=== PATIENT | female | born 1965 | race African-American/Black ===

== ENCOUNTER 2019-09-20 09:53 | Inpatient (IN) ==
[2019-09-20 11:38] LABS: Hematocrit 43.6 VOL% (35.7-47.0); Hemoglobin 13.7 GM/DL (12.0-16.0); Immature Granulocytes % 0.2 %; Immature Granulocytes Absolute 0.01 #; Lymphocytes # 0.9 10*3/uL (1.4-4.0); Lymphocytes % 17.1 % (21.3-54.2); Mean Corpuscular HGB Conc 31.4 GM/DL (32-36); Mean Corpuscular Volume 83.5 FL (87-102); Mean Platelet Volume 9.2 FL (9.6-12.0); Monocytes % 4.1 % (1.7-12.7); Neutrophils % 78.6 % (38.7-73.9); Platelet Count 160 T/CUMM (130-400); Red Blood Count 5.22 MC/CUMM (3.8-5.5); Red Cell Distribution Width 14.5 % (9.3-17.3); White Blood Count 5.4 T/CUMM (4-12)
[2019-09-20] MEDS ORDERED: cefTRIAXone 1,000 MG in SODIUM CHLORIDE 0.9% 100 ML IV STA (11:59)
[2019-09-20] MEDS ORDERED: FUROSEMIDE 40 MG/4 ML VIAL IV STA (12:00)
[2019-09-20 12:16] LABS: Ferritin 324.2 ng/ml (8-252)
[2019-09-20] MEDS ORDERED: cefTRIAXone 1,000 MG VIAL ONE (12:16)
[2019-09-20 12:28] LABS: Albumin 2.8 G/DL (3.4-5.0); Bilirubin,Total 0.5 MG/DL (0.2-1.0); Calcium 8.3 MG/DL (8.5-10.1); Osmolality,Calculated 284.8 MOS/KG (273-304)
[2019-09-20 12:32] LABS: Bilirubin,Urine Negative (Negative); Blood, Urine Negative (Negative); Glucose,Urine (UA) Negative (Negative); Hyaline Casts,Urine 4 /LPF (0-3); Ketones,Urine Negative (Negative); Mucus,Urine Few /LPF (Occasional); Nitrite,Urine Negative (Negative); Protein,Urine 30 MG/DL; RBC,Urine 1 /HPF (0-4); Squamous Epithelial Cell,Urine Occasional /HPF (0-10); Urine Appearance CLOUDY (Clear); Urine Color Amber (Yellow); Urine Specific Gravity 1.024 (1.001-1.035)
[2019-09-20] MEDS: LACTATED RINGERS 1,000 ML IV SCH (14:49)
[2019-09-20] MEDS ORDERED: REMDESIVIR 200 MG in SODIUM CHLORIDE 0.9% 210 ML IV ONE (17:00)
[2019-09-20] MEDS: DOCUSATE SODIUM 100 MG CAPSULE PO SCH (20:27)
[2019-09-21] MEDS: LACTATED RINGERS 1,000 ML IV SCH (04:11)
[2019-09-21 06:27] LABS: Hematocrit 43.5 VOL% (35.7-47.0); Hemoglobin 13.3 GM/DL (12.0-16.0); Immature Granulocytes % 0.2 %; Immature Granulocytes Absolute 0.01 #; Lymphocytes # 0.6 10*3/uL (1.4-4.0); Lymphocytes % 12.1 % (21.3-54.2); Mean Corpuscular HGB Conc 30.6 GM/DL (32-36); Mean Corpuscular Volume 84.1 FL (87-102); Mean Platelet Volume 9.6 FL (9.6-12.0); Monocytes % 2.9 % (1.7-12.7); Neutrophils % 84.8 % (38.7-73.9); Platelet Count 167 T/CUMM (130-400); Red Blood Count 5.17 MC/CUMM (3.8-5.5); Red Cell Distribution Width 14.6 % (9.3-17.3); White Blood Count 5.1 T/CUMM (4-12)
[2019-09-21 06:53] LABS: Albumin 2.7 G/DL (3.4-5.0); Calcium 8.8 MG/DL (8.5-10.1); Osmolality,Calculated 285.7 MOS/KG (273-304); Total Protein 7.6 G/DL (6.4-8.3)
[2019-09-21 07:09] LABS: Hypochromasia 1+; Microcytosis 1+; Platelet Estimate Adequate
[2019-09-21] MEDS: ONDANSETRON 4 MG/2 ML VIAL IV PRN (07:42)
[2019-09-21] MEDS: DOCUSATE SODIUM 100 MG CAPSULE PO SCH ×2 (08:30→20:47)
[2019-09-21] MEDS ORDERED: PANTOPRAZOLE 40 MG TABLET PO SCH (09:00)
[2019-09-21] MEDS: cefTRIAXone 1,000 MG in SYRINGE 1 EACH IV SCH (11:06)
[2019-09-21] MEDS: POTASSIUM CHLORIDE INJ 20 MEQ in LACTATED RINGERS 1,000 ML IV SCH (11:06)
[2019-09-21] MEDS: REMDESIVIR 100 MG in SODIUM CHLORIDE 0.9% 230 ML IV SCH (16:15)
[2019-09-21] MEDS: ACETAMINOPHEN 325 MG TABLET PO PRN (17:39)
[2019-09-21] MEDS: BENZTROPINE 1 MG TABLET PO SCH (20:47)
[2019-09-22] MEDS: POTASSIUM CHLORIDE INJ 20 MEQ in LACTATED RINGERS 1,000 ML IV SCH ×2 (02:16→15:37)
[2019-09-22] MEDS: DEXAMETHASONE 10 MG/1 ML VIAL IV SCH (09:13)
[2019-09-22] MEDS: BENZTROPINE 1 MG TABLET PO SCH ×2 (09:14→20:05)
[2019-09-22] MEDS: DOCUSATE SODIUM 100 MG CAPSULE PO SCH ×2 (09:14→20:06)
[2019-09-22] MEDS: ARIPiprazole 10 MG TABLET PO SCH (09:14)
[2019-09-22] MEDS: buPROPion XL 150 MG TABLET PO SCH (09:31)
[2019-09-22] MEDS: cefTRIAXone 1,000 MG in SYRINGE 1 EACH IV SCH (11:31)
[2019-09-22] MEDS: REMDESIVIR 100 MG in SODIUM CHLORIDE 0.9% 230 ML IV SCH (17:40)
[2019-09-22 22:39] LABS: ABG Base Excess 3.5 MMOL/L (-2.5-2.5); ABG HCO3 26.6 MMOL/L (20-26); ABG Oxygen Saturation 58.8 % (95-100); ABG PH 7.449 (7.35-7.45); ABG TCO2 24.2 MMOL/L (23-27)
[2019-09-22 22:42] LABS: ABG PO2 31.8 MM HG (80-95)
[2019-09-22 23:26] LABS: Calcium 8.8 MG/DL (8.5-10.1); Osmolality,Calculated 287.1 MOS/KG (273-304)
[2019-09-23] MEDS: POTASSIUM CHLORIDE INJ 20 MEQ in LACTATED RINGERS 1,000 ML IV SCH (04:45)
[2019-09-23 06:54] LABS: Hematocrit 42.3 VOL% (35.7-47.0); Hemoglobin 13.1 GM/DL (12.0-16.0); Immature Granulocytes % 0.2 %; Immature Granulocytes Absolute 0.01 #; Lymphocytes # 0.7 10*3/uL (1.4-4.0); Lymphocytes % 17.7 % (21.3-54.2); Mean Corpuscular Volume 83.6 FL (87-102); Mean Platelet Volume 9.6 FL (9.6-12.0); Monocytes % 6.7 % (1.7-12.7); Neutrophils % 75.4 % (38.7-73.9); Platelet Count 176 T/CUMM (130-400); Red Blood Count 5.06 MC/CUMM (3.8-5.5); Red Cell Distribution Width 14.5 % (9.3-17.3)
[2019-09-23 07:34] LABS: Albumin 2.4 G/DL (3.4-5.0); Bilirubin,Total 0.6 MG/DL (0.2-1.0); Calcium 8.7 MG/DL (8.5-10.1); Osmolality,Calculated 284.3 MOS/KG (273-304)
[2019-09-23] MEDS: ENOXAPARIN 60 MG/0.6 ML SYRINGE SUBCUT SCH ×2 (09:14→20:30)
[2019-09-23] MEDS: buPROPion XL 150 MG TABLET PO SCH ×2 (09:15→10:57)
[2019-09-23] MEDS: DEXAMETHASONE 10 MG/1 ML VIAL IV SCH (09:16)
[2019-09-23] MEDS: DOCUSATE SODIUM 100 MG CAPSULE PO SCH ×2 (09:16→20:36)
[2019-09-23] MEDS: BENZTROPINE 1 MG TABLET PO SCH ×3 (09:16→20:36)
[2019-09-23] MEDS: ARIPiprazole 10 MG TABLET PO SCH ×2 (09:16→10:57)
[2019-09-23] MEDS: cefTRIAXone 1,000 MG in SYRINGE 1 EACH IV SCH (09:23)
[2019-09-23] MEDS ORDERED: FUROSEMIDE 40 MG/4 ML VIAL IV ONE (15:39)
[2019-09-23] MEDS: REMDESIVIR 100 MG in SODIUM CHLORIDE 0.9% 230 ML IV SCH (18:14)
[2019-09-23] MEDS ORDERED: HALOPERIDOL 5 MG/ML AMP IM ONE (19:31)
[2019-09-24 06:48] LABS: Hematocrit 44.1 VOL% (35.7-47.0); Hemoglobin 13.7 GM/DL (12.0-16.0); Immature Granulocytes % 0.2 %; Immature Granulocytes Absolute 0.02 #; Lymphocytes % 11.7 % (21.3-54.2); Mean Corpuscular HGB Conc 31.1 GM/DL (32-36); Mean Corpuscular Volume 83.1 FL (87-102); Mean Platelet Volume 9.6 FL (9.6-12.0); Monocytes % 6.1 % (1.7-12.7); Platelet Count 194 T/CUMM (130-400); Red Blood Count 5.31 MC/CUMM (3.8-5.5); Red Cell Distribution Width 14.5 % (9.3-17.3); White Blood Count 8.4 T/CUMM (4-12)
[2019-09-24 06:56] LABS: Albumin 2.6 G/DL (3.4-5.0); Bilirubin,Total 0.7 MG/DL (0.2-1.0); Calcium 9.2 MG/DL (8.5-10.1); Osmolality,Calculated 293.8 MOS/KG (273-304); Total Protein 7.3 G/DL (6.4-8.3)
[2019-09-24] MEDS: cefTRIAXone 1,000 MG in SYRINGE 1 EACH IV SCH (09:42)
[2019-09-24] MEDS: ENOXAPARIN 60 MG/0.6 ML SYRINGE SUBCUT SCH ×2 (09:42→21:12)
[2019-09-24] MEDS: DEXAMETHASONE 10 MG/1 ML VIAL IV SCH (09:43)
[2019-09-24] MEDS: buPROPion XL 150 MG TABLET PO SCH (10:05)
[2019-09-24] MEDS: ARIPiprazole 10 MG TABLET PO SCH (10:05)
[2019-09-24] MEDS: DOCUSATE SODIUM 100 MG CAPSULE PO SCH ×2 (10:05→21:12)
[2019-09-24] MEDS: BENZTROPINE 1 MG TABLET PO SCH ×2 (10:05→21:12)
[2019-09-24 16:52] LABS: ABG Base Excess 5.3 MMOL/L (-2.5-2.5); ABG HCO3 29.1 MMOL/L (20-26); ABG Oxygen Saturation 92.8 % (95-100); ABG PCO2 41.6 MM HG (35-48); ABG PH 7.461 (7.35-7.45); ABG TCO2 25.5 MMOL/L (23-27)
[2019-09-24] MEDS ORDERED: PANTOPRAZOLE 40 MG TABLET PO SCH (17:00)
[2019-09-24] MEDS: REMDESIVIR 100 MG in SODIUM CHLORIDE 0.9% 230 ML IV SCH (17:28)
[2019-09-24] MEDS ORDERED: VANCOMYCIN INJ 1,500 MG in SODIUM CHLORIDE 0.9% 500 ML IV SCH (21:00)
[2019-09-24] MEDS: HALOPERIDOL 5 MG/ML AMP IM PRN (21:04)
[2019-09-24] MEDS: PANTOPRAZOLE 40 MG TABLET PO SCH (21:13)
[2019-09-25 05:04] LABS: Albumin 2.5 G/DL (3.4-5.0); Bilirubin,Total 0.6 MG/DL (0.2-1.0); Calcium 8.2 MG/DL (8.5-10.1); Osmolality,Calculated 296.7 MOS/KG (273-304); Total Protein 6.8 G/DL (6.4-8.3)
[2019-09-25] MEDS: ENOXAPARIN 60 MG/0.6 ML SYRINGE SUBCUT SCH ×3 (08:03→17:30)
[2019-09-25] MEDS: DEXAMETHASONE 10 MG/1 ML VIAL IV SCH (08:03)
[2019-09-25] MEDS: PANTOPRAZOLE 40 MG TABLET PO SCH (09:27)
[2019-09-25] MEDS: BENZTROPINE 1 MG TABLET PO SCH ×2 (09:27→22:22)
[2019-09-25] MEDS: DOCUSATE SODIUM 100 MG CAPSULE PO SCH ×2 (09:28→22:21)
[2019-09-25] MEDS: ARIPiprazole 10 MG TABLET PO SCH (12:20)
[2019-09-25] MEDS: buPROPion XL 150 MG TABLET PO SCH (12:20)
[2019-09-25] MEDS: VANCOMYCIN INJ 1,500 MG in SODIUM CHLORIDE 0.9% 500 ML IV SCH (13:58)
[2019-09-25] MEDS ORDERED: FUROSEMIDE 40 MG/4 ML VIAL IV ONE (16:31)
[2019-09-26] MEDS: VANCOMYCIN INJ 1,500 MG in SODIUM CHLORIDE 0.9% 500 ML IV SCH ×3 (00:57→22:03)
[2019-09-26 04:40] LABS: Basophils % 0.1 % (0.0-0.8); Hematocrit 43.5 VOL% (35.7-47.0); Hemoglobin 13.6 GM/DL (12.0-16.0); Immature Granulocytes % 0.7 %; Immature Granulocytes Absolute 0.07 #; Lymphocytes # 0.6 10*3/uL (1.4-4.0); Mean Corpuscular HGB Conc 31.3 GM/DL (32-36); Mean Corpuscular Volume 82.7 FL (87-102); Mean Platelet Volume 9.4 FL (9.6-12.0); Monocytes % 3.6 % (1.7-12.7); Neutrophils % 89.6 % (38.7-73.9); Platelet Count 163 T/CUMM (130-400); Red Blood Count 5.26 MC/CUMM (3.8-5.5); Red Cell Distribution Width 14.3 % (9.3-17.3); White Blood Count 10.7 T/CUMM (4-12)
[2019-09-26 04:57] LABS: Calcium 8.3 MG/DL (8.5-10.1); Osmolality,Calculated 286.1 MOS/KG (273-304)
[2019-09-26] MEDS: ENOXAPARIN 60 MG/0.6 ML SYRINGE SUBCUT SCH ×2 (05:36→16:31)
[2019-09-26] MEDS: DEXAMETHASONE 10 MG/1 ML VIAL IV SCH (09:22)
[2019-09-26] MEDS: ARIPiprazole 10 MG TABLET PO SCH (09:24)
[2019-09-26] MEDS: BENZTROPINE 1 MG TABLET PO SCH ×2 (09:24→22:03)
[2019-09-26] MEDS: buPROPion XL 150 MG TABLET PO SCH (09:25)
[2019-09-26] MEDS: PANTOPRAZOLE 40 MG TABLET PO SCH (09:25)
[2019-09-26] MEDS: DOCUSATE SODIUM 100 MG CAPSULE PO SCH ×2 (12:00→22:03)
[2019-09-26] MEDS ORDERED: FUROSEMIDE 40 MG/4 ML VIAL IV ONE (15:25)
[2019-09-27] MEDS: ENOXAPARIN 60 MG/0.6 ML SYRINGE SUBCUT SCH ×2 (04:24→15:20)
[2019-09-27] MEDS: DOCUSATE SODIUM 100 MG CAPSULE PO SCH ×2 (08:51→21:34)
[2019-09-27] MEDS: PANTOPRAZOLE 40 MG TABLET PO SCH (08:51)
[2019-09-27] MEDS: BENZTROPINE 1 MG TABLET PO SCH ×2 (08:51→21:34)
[2019-09-27] MEDS: buPROPion XL 150 MG TABLET PO SCH (08:51)
[2019-09-27] MEDS: DEXAMETHASONE 10 MG/1 ML VIAL IV SCH (08:52)
[2019-09-27] MEDS: ARIPiprazole 10 MG TABLET PO SCH (08:52)
[2019-09-27] MEDS: VANCOMYCIN INJ 1,500 MG in SODIUM CHLORIDE 0.9% 500 ML IV SCH (18:03)
[2019-09-28] MEDS: ARIPiprazole 10 MG TABLET PO SCH (08:36)
[2019-09-28] MEDS: DOCUSATE SODIUM 100 MG CAPSULE PO SCH ×2 (08:36→20:32)
[2019-09-28] MEDS: ENOXAPARIN 60 MG/0.6 ML SYRINGE SUBCUT SCH ×2 (08:36→20:32)
[2019-09-28] MEDS: PANTOPRAZOLE 40 MG TABLET PO SCH (08:36)
[2019-09-28] MEDS: BENZTROPINE 1 MG TABLET PO SCH ×2 (08:36→20:32)
[2019-09-28] MEDS: DEXAMETHASONE 10 MG/1 ML VIAL IV SCH (08:37)
[2019-09-28] MEDS: VANCOMYCIN INJ 1,500 MG in SODIUM CHLORIDE 0.9% 500 ML IV SCH (08:37)
[2019-09-28] MEDS: buPROPion XL 150 MG TABLET PO SCH (08:37)
[2019-09-29] MEDS: VANCOMYCIN INJ 1,500 MG in SODIUM CHLORIDE 0.9% 500 ML IV SCH ×2 (03:13→21:07)
[2019-09-29] MEDS: ACETAMINOPHEN 325 MG TABLET PO PRN (05:10)
[2019-09-29] MEDS: DEXAMETHASONE 10 MG/1 ML VIAL IV SCH (08:44)
[2019-09-29] MEDS: BENZTROPINE 1 MG TABLET PO SCH ×2 (08:44→21:09)
[2019-09-29] MEDS: PANTOPRAZOLE 40 MG TABLET PO SCH (08:44)
[2019-09-29] MEDS: DOCUSATE SODIUM 100 MG CAPSULE PO SCH ×2 (08:44→21:08)
[2019-09-29] MEDS: ARIPiprazole 10 MG TABLET PO SCH (08:44)
[2019-09-29] MEDS: ENOXAPARIN 60 MG/0.6 ML SYRINGE SUBCUT SCH ×2 (08:44→21:09)
[2019-09-29] MEDS: buPROPion XL 150 MG TABLET PO SCH (08:51)
[2019-09-29] MEDS: HALOPERIDOL 5 MG/ML AMP IM PRN (21:08)
[2019-09-30] MEDS: ONDANSETRON 4 MG/2 ML VIAL IV PRN ×2 (02:40→09:18)
[2019-09-30 06:25] LABS: Calcium 8.2 MG/DL (8.5-10.1); Osmolality,Calculated 273.1 MOS/KG (273-304)
[2019-09-30 07:16] LABS: Basophils % 0.1 % (0.0-0.8); Eosinophils % 0.1 % (0.00-10.9); Hematocrit 40.8 VOL% (35.7-47.0); Hemoglobin 13.1 GM/DL (12.0-16.0); Immature Granulocytes % 0.7 %; Immature Granulocytes Absolute 0.11 #; Lymphocytes # 1.3 10*3/uL (1.4-4.0); Lymphocytes % 8.2 % (21.3-54.2); Mean Corpuscular HGB Conc 32.1 GM/DL (32-36); Mean Corpuscular Volume 81.9 FL (87-102); Mean Platelet Volume 10.4 FL (9.6-12.0); Monocytes % 4.3 % (1.7-12.7); Neutrophils % 86.6 % (38.7-73.9); Platelet Count 108 T/CUMM (130-400); Red Blood Count 4.98 MC/CUMM (3.8-5.5); Red Cell Distribution Width 14.4 % (9.3-17.3); White Blood Count 15.4 T/CUMM (4-12)
[2019-09-30 07:34] LABS: Hypochromasia 1+
[2019-09-30 07:35] LABS: Microcytosis Slight; Platelet Estimate Decreased; Target Cells Slight
[2019-09-30] MEDS: ARIPiprazole 10 MG TABLET PO SCH (09:17)
[2019-09-30] MEDS: BENZTROPINE 1 MG TABLET PO SCH ×2 (09:17→20:09)
[2019-09-30] MEDS: PANTOPRAZOLE 40 MG TABLET PO SCH (09:18)
[2019-09-30] MEDS: DEXAMETHASONE 10 MG/1 ML VIAL IV SCH (09:18)
[2019-09-30] MEDS: DOCUSATE SODIUM 100 MG CAPSULE PO SCH ×2 (09:18→20:09)
[2019-09-30] MEDS: ENOXAPARIN 60 MG/0.6 ML SYRINGE SUBCUT SCH ×2 (09:18→20:09)
[2019-09-30] MEDS: buPROPion XL 150 MG TABLET PO SCH (09:19)
[2019-09-30 11:34] LABS: ABG Base Excess 5.8 MMOL/L (-2.5-2.5); ABG HCO3 29.3 MMOL/L (20-26); ABG Oxygen Saturation 82.3 % (95-100); ABG PCO2 42.5 MM HG (35-48); ABG PO2 47.9 MM HG (80-95); ABG TCO2 26.5 MMOL/L (23-27); Pt O2 Delivery Device Other
[2019-09-30] MEDS ORDERED: ETOMIDATE 20 MG/10 ML VIAL IV ONE ×3 (15:50→16:45)
[2019-09-30] MEDS ORDERED: SUCCINYLCHOLINE 200 MG/10 ML VIAL ONE ×2 (15:51→17:04)
[2019-09-30] MEDS ORDERED: SODIUM CHLORIDE 0.9% 500 ML IV ONE ×2 (16:07→16:59)
[2019-09-30] MEDS ORDERED: SUCCINYLCHOLINE 200 MG/10 ML VIAL IV ONE ×3 (16:47→17:26)
[2019-09-30] MEDS ORDERED: MIDAZOLAM 2 MG/2 ML VIAL IV ONE ×2 (16:48→17:03)
[2019-09-30] MEDS ORDERED: MIDAZOLAM 2 MG/2 ML VIAL ONE (16:48)
[2019-09-30] MEDS ORDERED: MIDAZOLAM 10 MG/2 ML VIAL ONE (16:49)
[2019-09-30] MEDS ORDERED: NOREPINEPHRINE 4 MG/4 ML VIAL IV ONE (17:18)
[2019-09-30] MEDS: NOREPINEPHRINE 8 MG in SODIUM CHLORIDE 0.9% 242 ML IV PRN (17:23)
[2019-09-30] MEDS: ROCURONIUM 500 MG in SODIUM CHLORIDE 0.9% 500 ML IV PRN (17:45)
[2019-09-30] MEDS: MIDAZOLAM 100 MG in SODIUM CHLORIDE 0.9% 80 ML IV PRN (17:49)
[2019-09-30] MEDS: INSULIN LISPRO 100 UNIT/ML SUBCUT SCH ×2 (18:40→23:25)
[2019-10-01 03:55] LABS: ABG Base Excess 3.8 MMOL/L (-2.5-2.5); ABG HCO3 27.9 MMOL/L (20-26); ABG PH 7.461 (7.35-7.45); ABG TCO2 29.1 MMOL/L (23-27)
[2019-10-01 04:58] LABS: Basophils % 0.1 % (0.0-0.8); Hemoglobin 12.3 GM/DL (12.0-16.0); Immature Granulocytes % 0.9 %; Immature Granulocytes Absolute 0.13 #; Lymphocytes # 0.8 10*3/uL (1.4-4.0); Lymphocytes % 5.9 % (21.3-54.2); Mean Corpuscular HGB Conc 30.8 GM/DL (32-36); Mean Corpuscular Volume 84.2 FL (87-102); Mean Platelet Volume 10.4 FL (9.6-12.0); Monocytes % 3.8 % (1.7-12.7); Neutrophils % 89.3 % (38.7-73.9); Platelet Count 80 T/CUMM (130-400); Red Blood Count 4.75 MC/CUMM (3.8-5.5); Red Cell Distribution Width 14.6 % (9.3-17.3); White Blood Count 13.8 T/CUMM (4-12)
[2019-10-01 05:02] LABS: Calcium 8.2 MG/DL (8.5-10.1); Osmolality,Calculated 279.5 MOS/KG (273-304)
[2019-10-01 05:23] LABS: Platelet Estimate Decreased
[2019-10-01 05:24] LABS: Hypochromasia 1+; Microcytosis Slight
[2019-10-01] MEDS: INSULIN LISPRO 100 UNIT/ML SUBCUT SCH ×4 (05:27→23:55)
[2019-10-01] MEDS: PANTOPRAZOLE 40 MG VIAL IV SCH (08:06)
[2019-10-01] MEDS: DOCUSATE SODIUM 100 MG/10 ML UDCUP NG SCH ×2 (08:06→20:16)
[2019-10-01] MEDS: DEXAMETHASONE 10 MG/1 ML VIAL IV SCH (08:07)
[2019-10-01] MEDS: ENOXAPARIN 60 MG/0.6 ML SYRINGE SUBCUT SCH (08:07)
[2019-10-01] MEDS: BENZTROPINE 1 MG TABLET PO SCH ×2 (08:08→20:13)
[2019-10-01] MEDS: ARIPiprazole 10 MG TABLET PO SCH (08:08)
[2019-10-01] MEDS: buPROPion 75 MG TABLET PO SCH ×2 (08:08→20:13)
[2019-10-01] MEDS: ROCURONIUM 500 MG in SODIUM CHLORIDE 0.9% 500 ML IV PRN (10:25)
[2019-10-01] MEDS ORDERED: GLUCAGON 1 MG VIAL IM PRN (15:07)
[2019-10-01] MEDS ORDERED: DEXTROSE 50% 25 GM/50 ML VIAL IV PRN (15:07)
[2019-10-01] MEDS: ARIXTRA SUBCUT SCH (20:13)
[2019-10-02 03:45] LABS: Allen Test Positive; Pt O2 Delivery Device Ventilator
[2019-10-02 03:47] LABS: ABG Base Excess 4.5 MMOL/L (-2.5-2.5); ABG HCO3 29.1 MMOL/L (20-26); ABG Oxygen Saturation 97.8 % (95-100); ABG PCO2 43.8 MM HG (35-48); ABG PH 7.441 (7.35-7.45); ABG TCO2 30.5 MMOL/L (23-27)
[2019-10-02 04:38] LABS: Basophils % 0.1 % (0.0-0.8); Eosinophils % 0.1 % (0.00-10.9); Hematocrit 36.8 VOL% (35.7-47.0); Hemoglobin 11.2 GM/DL (12.0-16.0); Immature Granulocytes % 0.6 %; Immature Granulocytes Absolute 0.08 #; Lymphocytes # 0.6 10*3/uL (1.4-4.0); Lymphocytes % 4.1 % (21.3-54.2); Mean Corpuscular HGB Conc 30.4 GM/DL (32-36); Mean Corpuscular Volume 85.6 FL (87-102); Mean Platelet Volume 12.1 FL (9.6-12.0); Monocytes % 4.5 % (1.7-12.7); Neutrophils % 90.6 % (38.7-73.9); Platelet Count 83 T/CUMM (130-400); Red Cell Distribution Width 14.7 % (9.3-17.3); White Blood Count 13.7 T/CUMM (4-12)
[2019-10-02 04:51] LABS: Calcium 8.5 MG/DL (8.5-10.1); Osmolality,Calculated 286.1 MOS/KG (273-304)
[2019-10-02 05:04] LABS: Hypochromasia 1+; Lymphocytes 5 % (20-55); Microcytosis Slight; Platelet Estimate Decreased; Segmented Neutrophils 90 % (50-85); Total Cells Counted 100
[2019-10-02] MEDS: INSULIN LISPRO 100 UNIT/ML SUBCUT SCH ×3 (06:15→17:28)
[2019-10-02] MEDS: DEXAMETHASONE 10 MG/1 ML VIAL IV SCH (08:22)
[2019-10-02] MEDS: PANTOPRAZOLE 40 MG VIAL IV SCH (08:22)
[2019-10-02] MEDS: buPROPion 75 MG TABLET PO SCH ×2 (08:23→20:03)
[2019-10-02] MEDS: DOCUSATE SODIUM 100 MG/10 ML UDCUP NG SCH ×2 (08:23→20:03)
[2019-10-02] MEDS: BENZTROPINE 1 MG TABLET PO SCH ×2 (08:23→20:03)
[2019-10-02] MEDS: ARIPiprazole 10 MG TABLET PO SCH (08:23)
[2019-10-02] MEDS: HALOPERIDOL 5 MG/ML AMP IM PRN (08:26)
[2019-10-02] MEDS: MIDAZOLAM 100 MG in SODIUM CHLORIDE 0.9% 80 ML IV PRN (08:47)
[2019-10-02] MEDS ORDERED: FUROSEMIDE 40 MG/4 ML VIAL IV ONE (15:40)
[2019-10-02] MEDS: ARIXTRA SUBCUT SCH (20:03)
[2019-10-03] MEDS: INSULIN LISPRO 100 UNIT/ML SUBCUT SCH ×4 (00:23→17:04)
[2019-10-03 05:00] LABS: Basophils % 0.2 % (0.0-0.8); Eosinophils # 0.1 10*3/uL (0.0-0.87); Eosinophils % 0.5 % (0.00-10.9); Hematocrit 38.3 VOL% (35.7-47.0); Hemoglobin 12.1 GM/DL (12.0-16.0); Immature Granulocytes % 0.9 %; Immature Granulocytes Absolute 0.16 #; Lymphocytes # 0.9 10*3/uL (1.4-4.0); Mean Corpuscular HGB Conc 31.6 GM/DL (32-36); Mean Corpuscular Volume 83.4 FL (87-102); Monocytes % 3.8 % (1.7-12.7); Neutrophils % 89.6 % (38.7-73.9); Platelet Count 127 T/CUMM (130-400); Red Blood Count 4.59 MC/CUMM (3.8-5.5); Red Cell Distribution Width 14.7 % (9.3-17.3); White Blood Count 18.6 T/CUMM (4-12)
[2019-10-03 05:10] LABS: ABG Base Excess 9.4 MMOL/L (-2.5-2.5); ABG HCO3 33.1 MMOL/L (20-26); ABG Oxygen Saturation 99.2 % (95-100); ABG PCO2 44.2 MM HG (35-48); ABG PH 7.493 (7.35-7.45); ABG TCO2 29.7 MMOL/L (23-27); Allen Test Positive; Pt O2 Delivery Device Ventilator
[2019-10-03 05:14] LABS: Calcium 8.8 MG/DL (8.5-10.1); Osmolality,Calculated 284.4 MOS/KG (273-304)
[2019-10-03 05:45] LABS: Hypochromasia 1+
[2019-10-03 05:46] LABS: Microcytosis Slight; Platelet Estimate Decreased
[2019-10-03] MEDS: ARIPiprazole 10 MG TABLET PO SCH (08:42)
[2019-10-03] MEDS: PANTOPRAZOLE 40 MG VIAL IV SCH (08:42)
[2019-10-03] MEDS: DOCUSATE SODIUM 100 MG/10 ML UDCUP NG SCH ×2 (08:42→20:30)
[2019-10-03] MEDS: buPROPion 75 MG TABLET PO SCH ×2 (08:42→20:30)
[2019-10-03] MEDS: DEXAMETHASONE 10 MG/1 ML VIAL IV SCH (08:42)
[2019-10-03] MEDS: BENZTROPINE 1 MG TABLET PO SCH ×2 (08:42→20:30)
[2019-10-03] MEDS: MIDAZOLAM 100 MG in SODIUM CHLORIDE 0.9% 80 ML IV PRN (09:28)
[2019-10-03] MEDS: cefTRIAXone 1,000 MG in SYRINGE 1 EACH IV SCH (13:42)
[2019-10-03] MEDS: ARIXTRA SUBCUT SCH (20:30)
[2019-10-03] MEDS: ZINC OXIDE PASTE 113 GM TUBE TOP SCH (20:30)
[2019-10-04] MEDS: INSULIN LISPRO 100 UNIT/ML SUBCUT SCH ×5 (01:04→23:53)
[2019-10-04] MEDS ORDERED: EPINEPHrine 1 MG/10 ML SYRINGE ONE (03:28)
[2019-10-04] MEDS ORDERED: CALCIUM CHLORIDE 1,000 MG/10 ML SYRINGE IV ONE (03:28)
[2019-10-04] MEDS ORDERED: SODIUM BICARBONATE 50 MEQ/50 ML SYRINGE IV ONE (03:28)
[2019-10-04 03:48] LABS: Basophils % 0.2 % (0.0-0.8); Eosinophils # 0.3 10*3/uL (0.0-0.87); Eosinophils % 1.3 % (0.00-10.9); Hematocrit 39.6 VOL% (35.7-47.0); Hemoglobin 11.9 GM/DL (12.0-16.0); Immature Granulocytes % 1.1 %; Immature Granulocytes Absolute 0.21 #; Lymphocytes # 3.3 10*3/uL (1.4-4.0); Lymphocytes % 16.5 % (21.3-54.2); Mean Corpuscular HGB Conc 30.1 GM/DL (32-36); Mean Corpuscular Volume 86.7 FL (87-102); Mean Platelet Volume 10.7 FL (9.6-12.0); Monocytes % 4.3 % (1.7-12.7); NRBC # 0.02 10*3/uL; Neutrophils % 76.6 % (38.7-73.9); Platelet Count 128 T/CUMM (130-400); Red Blood Count 4.57 MC/CUMM (3.8-5.5); Red Cell Distribution Width 14.8 % (9.3-17.3); White Blood Count 19.7 T/CUMM (4-12)
[2019-10-04 04:45] LABS: Albumin 1.7 G/DL (3.4-5.0); Bilirubin,Total 0.7 MG/DL (0.2-1.0); Calcium 12.4 MG/DL (8.5-10.1); Osmolality,Calculated 292.8 MOS/KG (273-304); Total Protein 6.1 G/DL (6.4-8.3)
[2019-10-04] MEDS: NOREPINEPHRINE 8 MG in SODIUM CHLORIDE 0.9% 242 ML IV PRN (05:07)
[2019-10-04 05:19] LABS: Allen Test Positive; Pt O2 Delivery Device Ventilator
[2019-10-04 05:20] LABS: ABG Base Excess 9.7 MMOL/L (-2.5-2.5); ABG HCO3 33.5 MMOL/L (20-26); ABG Oxygen Saturation 99.5 % (95-100); ABG PCO2 49.4 MM HG (35-48); ABG TCO2 31.2 MMOL/L (23-27)
[2019-10-04] MEDS: PANTOPRAZOLE 40 MG VIAL IV SCH (08:07)
[2019-10-04] MEDS: BENZTROPINE 1 MG TABLET PO SCH ×2 (08:08→21:27)
[2019-10-04] MEDS: ARIPiprazole 10 MG TABLET PO SCH (08:08)
[2019-10-04] MEDS: DEXAMETHASONE 10 MG/1 ML VIAL IV SCH (08:08)
[2019-10-04] MEDS: DOCUSATE SODIUM 100 MG/10 ML UDCUP NG SCH ×2 (08:08→21:28)
[2019-10-04] MEDS: ZINC OXIDE PASTE 113 GM TUBE TOP SCH ×2 (08:09→21:28)
[2019-10-04] MEDS: buPROPion 75 MG TABLET PO SCH ×2 (08:09→21:28)
[2019-10-04] MEDS ORDERED: POLYETHYLENE GLYCOL POWDER 17 GM PACK PO ONE (09:00)
[2019-10-04 09:40] LABS: Eosinophils # 0.3 10*3/uL (0.0-0.87); Eosinophils % 1.5 % (0.00-10.9); Hematocrit 38.1 VOL% (35.7-47.0); Hemoglobin 11.6 GM/DL (12.0-16.0); Immature Granulocytes Absolute 0.22 #; Lymphocytes # 1.3 10*3/uL (1.4-4.0); Lymphocytes % 5.8 % (21.3-54.2); Mean Corpuscular HGB Conc 30.4 GM/DL (32-36); Mean Corpuscular Volume 85.8 FL (87-102); Mean Platelet Volume 10.9 FL (9.6-12.0); Monocytes % 3.2 % (1.7-12.7); Neutrophils % 88.5 % (38.7-73.9); Platelet Count 131 T/CUMM (130-400); Red Blood Count 4.44 MC/CUMM (3.8-5.5); Red Cell Distribution Width 14.8 % (9.3-17.3); White Blood Count 21.9 T/CUMM (4-12)
[2019-10-04 10:10] LABS: Eosinophils 2 % (0-10); Hypochromasia 1+; Lymphocytes 9 % (20-55); Microcytosis Slight; Platelet Estimate Adequate; Segmented Neutrophils 88 % (50-85); Total Cells Counted 100
[2019-10-04] MEDS: cefTRIAXone 1,000 MG in SYRINGE 1 EACH IV SCH (16:21)
[2019-10-04] MEDS: CLINDAMYCIN INJ 600 MG in PREMIX 1 EACH IV SCH (16:52)
[2019-10-04] MEDS: ARIXTRA SUBCUT SCH (21:28)
[2019-10-05] MEDS: CLINDAMYCIN INJ 600 MG in PREMIX 1 EACH IV SCH ×3 (00:13→15:44)
[2019-10-05 04:25] LABS: ABG Base Excess 10.2 MMOL/L (-2.5-2.5); ABG HCO3 35.4 MMOL/L (20-26); ABG Oxygen Saturation 97.7 % (95-100); ABG PCO2 50.4 MM HG (35-48); ABG PH 7.465 (7.35-7.45); Allen Test Positive; Pt O2 Delivery Device Ventilator
[2019-10-05 05:29] LABS: Basophils % 0.1 % (0.0-0.8); Eosinophils # 0.3 10*3/uL (0.0-0.87); Eosinophils % 1.5 % (0.00-10.9); Hemoglobin 11.5 GM/DL (12.0-16.0); Immature Granulocytes % 0.9 %; Lymphocytes # 1.3 10*3/uL (1.4-4.0); Mean Corpuscular HGB Conc 30.3 GM/DL (32-36); Mean Corpuscular Volume 85.2 FL (87-102); Mean Platelet Volume 11.3 FL (9.6-12.0); Monocytes % 2.3 % (1.7-12.7); Neutrophils % 89.2 % (38.7-73.9); Platelet Count 144 T/CUMM (130-400); Red Blood Count 4.46 MC/CUMM (3.8-5.5); Red Cell Distribution Width 14.8 % (9.3-17.3); White Blood Count 21.1 T/CUMM (4-12)
[2019-10-05 05:49] LABS: Calcium 8.8 MG/DL (8.5-10.1); Osmolality,Calculated 286.3 MOS/KG (273-304)
[2019-10-05] MEDS: INSULIN LISPRO 100 UNIT/ML SUBCUT SCH ×3 (05:54→17:51)
[2019-10-05 07:39] LABS: Platelet Estimate Adequate
[2019-10-05 07:40] LABS: Anisocytosis 2+
[2019-10-05] MEDS: ZINC OXIDE PASTE 113 GM TUBE TOP SCH ×2 (08:09→20:08)
[2019-10-05] MEDS: DEXAMETHASONE 10 MG/1 ML VIAL IV SCH (08:09)
[2019-10-05] MEDS: ARIPiprazole 10 MG TABLET PO SCH (08:09)
[2019-10-05] MEDS: PANTOPRAZOLE 40 MG VIAL IV SCH (08:09)
[2019-10-05] MEDS: buPROPion 75 MG TABLET PO SCH ×2 (08:09→20:08)
[2019-10-05] MEDS: DOCUSATE SODIUM 100 MG/10 ML UDCUP NG SCH ×2 (08:09→20:08)
[2019-10-05] MEDS: BENZTROPINE 1 MG TABLET PO SCH ×2 (08:11→20:08)
[2019-10-05] MEDS ORDERED: POLYETHYLENE GLYCOL POWDER 17 GM PACK PO ONE (09:00)
[2019-10-05] MEDS: ACETAMINOPHEN 325 MG TABLET PO PRN (09:22)
[2019-10-05] MEDS: MEROPENEM 500 MG in SODIUM CHLORIDE 0.9% 100 ML IV SCH ×3 (09:56→20:11)
[2019-10-05] MEDS: NOREPINEPHRINE 8 MG in SODIUM CHLORIDE 0.9% 242 ML IV PRN (11:36)
[2019-10-05] MEDS: ARIXTRA SUBCUT SCH (20:08)
[2019-10-06] MEDS: INSULIN LISPRO 100 UNIT/ML SUBCUT SCH ×4 (00:17→17:54)
[2019-10-06] MEDS: CLINDAMYCIN INJ 600 MG in PREMIX 1 EACH IV SCH ×3 (00:50→16:46)
[2019-10-06] MEDS: MEROPENEM 500 MG in SODIUM CHLORIDE 0.9% 100 ML IV SCH ×3 (02:58→15:50)
[2019-10-06 03:36] LABS: ABG Base Excess 9.9 MMOL/L (-2.5-2.5); ABG HCO3 35.1 MMOL/L (20-26); ABG Oxygen Saturation 96.8 % (95-100); ABG PCO2 50.3 MM HG (35-48); ABG PH 7.462 (7.35-7.45); ABG PO2 92.1 MM HG (80-95); ABG TCO2 36.7 MMOL/L (23-27); Allen Test Positive; Pt O2 Delivery Device Ventilator
[2019-10-06 05:19] LABS: Basophils % 0.1 % (0.0-0.8); Eosinophils # 0.2 10*3/uL (0.0-0.87); Hematocrit 36.5 VOL% (35.7-47.0); Hemoglobin 10.9 GM/DL (12.0-16.0); Immature Granulocytes % 0.9 %; Immature Granulocytes Absolute 0.19 #; Lymphocytes # 0.9 10*3/uL (1.4-4.0); Lymphocytes % 4.3 % (21.3-54.2); Mean Corpuscular HGB Conc 29.9 GM/DL (32-36); Mean Corpuscular Volume 85.7 FL (87-102); Mean Platelet Volume 10.8 FL (9.6-12.0); Monocytes % 2.3 % (1.7-12.7); Neutrophils % 91.4 % (38.7-73.9); Platelet Count 151 T/CUMM (130-400); Red Blood Count 4.26 MC/CUMM (3.8-5.5); Red Cell Distribution Width 14.9 % (9.3-17.3); White Blood Count 21.3 T/CUMM (4-12)
[2019-10-06 05:23] LABS: Calcium 8.7 MG/DL (8.5-10.1); Osmolality,Calculated 286.3 MOS/KG (273-304)
[2019-10-06] MEDS: NOREPINEPHRINE 8 MG in SODIUM CHLORIDE 0.9% 242 ML IV PRN (05:48)
[2019-10-06 06:42] LABS: Band Neutrophils 2 % (0-10); Eosinophils 2 % (0-10); Lymphocytes 9 % (20-55); Metamyelocytes 1 %; Platelet Estimate Adequate; Segmented Neutrophils 83 % (50-85); Total Cells Counted 100
[2019-10-06 06:43] LABS: Anisocytosis 1+; Hypochromasia Slight; Macrocytosis Slight; Polychromasia Few
[2019-10-06] MEDS: PANTOPRAZOLE 40 MG VIAL IV SCH (08:02)
[2019-10-06] MEDS: ARIPiprazole 10 MG TABLET PO SCH (08:03)
[2019-10-06] MEDS: DOCUSATE SODIUM 100 MG/10 ML UDCUP NG SCH ×2 (08:03→20:30)
[2019-10-06] MEDS: buPROPion 75 MG TABLET PO SCH ×2 (08:03→20:30)
[2019-10-06] MEDS: BENZTROPINE 1 MG TABLET PO SCH ×2 (08:03→20:30)
[2019-10-06] MEDS: DEXAMETHASONE 10 MG/1 ML VIAL IV SCH (08:03)
[2019-10-06] MEDS: ZINC OXIDE PASTE 113 GM TUBE TOP SCH ×2 (08:10→20:30)
[2019-10-06] MEDS: LEVOFLOXACIN INJ 750 MG in PREMIX 1 EACH IV SCH (18:11)
[2019-10-06] MEDS: AMPICILLIN INJ 500 MG in SODIUM CHLORIDE 0.9% 100 ML IV SCH (20:15)
[2019-10-06] MEDS: ARIXTRA SUBCUT SCH (20:30)
[2019-10-07] MEDS: INSULIN LISPRO 100 UNIT/ML SUBCUT SCH ×4 (00:15→18:27)
[2019-10-07] MEDS: AMPICILLIN INJ 500 MG in SODIUM CHLORIDE 0.9% 100 ML IV SCH ×4 (03:30→20:11)
[2019-10-07 04:55] LABS: ABG Base Excess 9.5 MMOL/L (-2.5-2.5); ABG HCO3 33.3 MMOL/L (20-26); ABG Oxygen Saturation 97.4 % (95-100); ABG PH 7.481 (7.35-7.45); ABG PO2 89.9 MM HG (80-95); ABG TCO2 30.7 MMOL/L (23-27); Allen Test Positive; Pt O2 Delivery Device Ventilator
[2019-10-07 05:18] LABS: Basophils % 0.2 % (0.0-0.8); Eosinophils # 0.3 10*3/uL (0.0-0.87); Eosinophils % 1.8 % (0.00-10.9); Hemoglobin 10.7 GM/DL (12.0-16.0); Immature Granulocytes % 1.1 %; Lymphocytes # 1.2 10*3/uL (1.4-4.0); Lymphocytes % 6.1 % (21.3-54.2); Mean Corpuscular HGB Conc 29.7 GM/DL (32-36); Mean Corpuscular Volume 87.2 FL (87-102); Mean Platelet Volume 10.9 FL (9.6-12.0); Monocytes % 2.4 % (1.7-12.7); Neutrophils % 88.4 % (38.7-73.9); Platelet Count 152 T/CUMM (130-400); Red Blood Count 4.13 MC/CUMM (3.8-5.5); Red Cell Distribution Width 14.7 % (9.3-17.3); White Blood Count 18.7 T/CUMM (4-12)
[2019-10-07 05:37] LABS: Calcium 8.5 MG/DL (8.5-10.1); Osmolality,Calculated 283.4 MOS/KG (273-304)
[2019-10-07] MEDS: BENZTROPINE 1 MG TABLET PO SCH ×2 (08:15→20:10)
[2019-10-07] MEDS: DOCUSATE SODIUM 100 MG/10 ML UDCUP NG SCH ×2 (08:15→20:10)
[2019-10-07] MEDS: ARIPiprazole 10 MG TABLET PO SCH (08:15)
[2019-10-07] MEDS: PANTOPRAZOLE 40 MG VIAL IV SCH (08:15)
[2019-10-07] MEDS: DEXAMETHASONE 10 MG/1 ML VIAL IV SCH (08:16)
[2019-10-07] MEDS: ZINC OXIDE PASTE 113 GM TUBE TOP SCH ×3 (08:17→20:15)
[2019-10-07] MEDS: buPROPion 75 MG TABLET PO SCH ×2 (08:17→20:10)
[2019-10-07] MEDS: NOREPINEPHRINE 8 MG in SODIUM CHLORIDE 0.9% 242 ML IV PRN (09:17)
[2019-10-07] MEDS: DESITIN 4OZ/NYSTATIN 15 GRAM MIXTURE PASTE TOP SCH ×3 (10:05→20:14)
[2019-10-07] MEDS: POLYVINYL ALCOHOL 1.4% OPH SOLN 15 ML BOTTLE BOTH EYES PRN (11:54)
[2019-10-07] MEDS: LEVOFLOXACIN INJ 750 MG in PREMIX 1 EACH IV SCH (17:27)
[2019-10-07] MEDS: ARIXTRA SUBCUT SCH (21:13)
[2019-10-08] MEDS: INSULIN LISPRO 100 UNIT/ML SUBCUT SCH ×4 (00:24→17:16)
[2019-10-08] MEDS: AMPICILLIN INJ 500 MG in SODIUM CHLORIDE 0.9% 100 ML IV SCH ×4 (03:21→20:09)
[2019-10-08 05:02] LABS: Basophils % 0.1 % (0.0-0.8); Eosinophils # 0.3 10*3/uL (0.0-0.87); Eosinophils % 1.9 % (0.00-10.9); Hematocrit 34.3 VOL% (35.7-47.0); Hemoglobin 10.3 GM/DL (12.0-16.0); Immature Granulocytes % 1.2 %; Immature Granulocytes Absolute 0.18 #; Lymphocytes # 1.4 10*3/uL (1.4-4.0); Lymphocytes % 9.5 % (21.3-54.2); Mean Platelet Volume 10.9 FL (9.6-12.0); Monocytes % 2.5 % (1.7-12.7); Neutrophils % 84.8 % (38.7-73.9); Platelet Count 160 T/CUMM (130-400); Red Blood Count 3.99 MC/CUMM (3.8-5.5); Red Cell Distribution Width 14.8 % (9.3-17.3); White Blood Count 14.5 T/CUMM (4-12)
[2019-10-08 05:26] LABS: Allen Test Positive; Pt O2 Delivery Device Ventilator
[2019-10-08 05:28] LABS: ABG HCO3 32.8 MMOL/L (20-26); ABG Oxygen Saturation 97.4 % (95-100); ABG PCO2 48.5 MM HG (35-48); ABG PH 7.457 (7.35-7.45); ABG PO2 91.5 MM HG (80-95); ABG TCO2 30.8 MMOL/L (23-27)
[2019-10-08 05:30] LABS: Calcium 8.4 MG/DL (8.5-10.1); Osmolality,Calculated 282.4 MOS/KG (273-304)
[2019-10-08] MEDS: BENZTROPINE 1 MG TABLET PO SCH ×2 (08:02→20:08)
[2019-10-08] MEDS: DEXAMETHASONE 10 MG/1 ML VIAL IV SCH (08:02)
[2019-10-08] MEDS: ARIPiprazole 10 MG TABLET PO SCH (08:02)
[2019-10-08] MEDS: DOCUSATE SODIUM 100 MG/10 ML UDCUP NG SCH ×2 (08:02→20:08)
[2019-10-08] MEDS: buPROPion 75 MG TABLET PO SCH ×2 (08:03→20:08)
[2019-10-08] MEDS: DESITIN 4OZ/NYSTATIN 15 GRAM MIXTURE PASTE TOP SCH ×2 (08:03→20:09)
[2019-10-08] MEDS: ZINC OXIDE PASTE 113 GM TUBE TOP SCH ×2 (08:03→20:09)
[2019-10-08] MEDS: PANTOPRAZOLE 40 MG VIAL IV SCH (08:03)
[2019-10-08] MEDS: NOREPINEPHRINE 8 MG in SODIUM CHLORIDE 0.9% 242 ML IV PRN (11:57)
[2019-10-08] MEDS: LEVOFLOXACIN INJ 750 MG in PREMIX 1 EACH IV SCH (17:16)
[2019-10-08] MEDS: ARIXTRA SUBCUT SCH (21:48)
[2019-10-09] MEDS: INSULIN LISPRO 100 UNIT/ML SUBCUT SCH ×4 (00:03→17:47)
[2019-10-09] MEDS: AMPICILLIN INJ 500 MG in SODIUM CHLORIDE 0.9% 100 ML IV SCH ×4 (02:31→20:07)
[2019-10-09 04:59] LABS: ABG Base Excess 7.4 MMOL/L (-2.5-2.5); ABG HCO3 32.4 MMOL/L (20-26); ABG Oxygen Saturation 97.8 % (95-100); ABG PCO2 48.2 MM HG (35-48); ABG PH 7.446 (7.35-7.45); ABG PO2 109.2 MM HG (80-95); ABG TCO2 33.9 MMOL/L (23-27)
[2019-10-09 05:38] LABS: Basophils % 0.2 % (0.0-0.8); Eosinophils # 0.4 10*3/uL (0.0-0.87); Eosinophils % 2.4 % (0.00-10.9); Hematocrit 34.2 VOL% (35.7-47.0); Hemoglobin 10.5 GM/DL (12.0-16.0); Immature Granulocytes % 2.8 %; Immature Granulocytes Absolute 0.47 #; Lymphocytes % 11.9 % (21.3-54.2); Mean Corpuscular HGB Conc 30.7 GM/DL (32-36); Mean Corpuscular Volume 85.1 FL (87-102); Monocytes % 1.8 % (1.7-12.7); Neutrophils % 80.9 % (38.7-73.9); Platelet Count 164 T/CUMM (130-400); Red Blood Count 4.02 MC/CUMM (3.8-5.5); Red Cell Distribution Width 14.8 % (9.3-17.3); White Blood Count 16.9 T/CUMM (4-12)
[2019-10-09 06:12] LABS: Calcium 8.5 MG/DL (8.5-10.1); Osmolality,Calculated 277.7 MOS/KG (273-304)
[2019-10-09] MEDS: PANTOPRAZOLE 40 MG VIAL IV SCH (08:18)
[2019-10-09] MEDS: DOCUSATE SODIUM 100 MG/10 ML UDCUP NG SCH ×2 (08:19→20:07)
[2019-10-09] MEDS: buPROPion 75 MG TABLET PO SCH ×2 (08:19→20:08)
[2019-10-09] MEDS: BENZTROPINE 1 MG TABLET PO SCH ×2 (08:19→20:07)
[2019-10-09] MEDS: DEXAMETHASONE 10 MG/1 ML VIAL IV SCH (08:19)
[2019-10-09] MEDS: ARIPiprazole 10 MG TABLET PO SCH (08:19)
[2019-10-09] MEDS: DESITIN 4OZ/NYSTATIN 15 GRAM MIXTURE PASTE TOP SCH ×2 (08:20→20:08)
[2019-10-09] MEDS: ZINC OXIDE PASTE 113 GM TUBE TOP SCH ×2 (08:20→20:07)
[2019-10-09] MEDS: ACETAMINOPHEN 325 MG TABLET PO PRN (12:05)
[2019-10-09] MEDS: NOREPINEPHRINE 8 MG in SODIUM CHLORIDE 0.9% 242 ML IV PRN (12:05)
[2019-10-09] MEDS: LEVOFLOXACIN INJ 750 MG in PREMIX 1 EACH IV SCH (17:51)
[2019-10-10] MEDS: ARIXTRA SUBCUT SCH ×2 (00:02→08:37)
[2019-10-10] MEDS: INSULIN LISPRO 100 UNIT/ML SUBCUT SCH ×4 (00:14→17:46)
[2019-10-10] MEDS: AMPICILLIN INJ 500 MG in SODIUM CHLORIDE 0.9% 100 ML IV SCH ×2 (03:30→08:36)
[2019-10-10 04:06] LABS: ABG Base Excess 4.6 MMOL/L (-2.5-2.5); ABG HCO3 27.5 MMOL/L (20-26); ABG Oxygen Saturation 99.1 % (95-100); ABG PCO2 35.6 MM HG (35-48); ABG PH 7.506 (7.35-7.45); ABG PO2 150.1 MM HG (80-95); ABG TCO2 28.6 MMOL/L (23-27)
[2019-10-10 04:18] LABS: Basophils % 0.2 % (0.0-0.8); Eosinophils # 0.4 10*3/uL (0.0-0.87); Hematocrit 35.2 VOL% (35.7-47.0); Hemoglobin 10.6 GM/DL (12.0-16.0); Immature Granulocytes % 4.4 %; Immature Granulocytes Absolute 0.79 #; Mean Corpuscular HGB Conc 30.1 GM/DL (32-36); Mean Corpuscular Volume 86.1 FL (87-102); Mean Platelet Volume 10.7 FL (9.6-12.0); Monocytes % 1.9 % (1.7-12.7); NRBC # 0.02 10*3/uL; Neutrophils % 80.5 % (38.7-73.9); Platelet Count 176 T/CUMM (130-400); Red Blood Count 4.09 MC/CUMM (3.8-5.5); Red Cell Distribution Width 14.8 % (9.3-17.3)
[2019-10-10 04:33] LABS: Calcium 8.6 MG/DL (8.5-10.1); Osmolality,Calculated 278.5 MOS/KG (273-304)
[2019-10-10 04:38] LABS: % Iron Saturation 26.5 % (18-50); Ferritin 457.4 ng/ml (8-252)
[2019-10-10 05:34] LABS: Eosinophils 2 % (0-10); Total Cells Counted 100
[2019-10-10 05:35] LABS: Band Neutrophils 2 % (0-10); Lymphocytes 10 % (20-55); Metamyelocytes 3 %; Platelet Estimate Normal; Segmented Neutrophils 81 % (50-85)
[2019-10-10 06:27] LABS: Calcium 8.6 MG/DL (8.5-10.1); Osmolality,Calculated 282.3 MOS/KG (273-304)
[2019-10-10] MEDS: NOREPINEPHRINE 8 MG in SODIUM CHLORIDE 0.9% 242 ML IV PRN ×2 (07:00→22:03)
[2019-10-10] MEDS: DEXAMETHASONE 10 MG/1 ML VIAL IV SCH (08:11)
[2019-10-10] MEDS: PANTOPRAZOLE 40 MG VIAL IV SCH (08:12)
[2019-10-10] MEDS: buPROPion 75 MG TABLET PO SCH ×2 (08:13→20:09)
[2019-10-10] MEDS: BENZTROPINE 1 MG TABLET PO SCH ×2 (08:13→20:09)
[2019-10-10] MEDS: ARIPiprazole 10 MG TABLET PO SCH (08:13)
[2019-10-10] MEDS: DOCUSATE SODIUM 100 MG/10 ML UDCUP NG SCH ×2 (08:36→20:09)
[2019-10-10] MEDS: ZINC OXIDE PASTE 113 GM TUBE TOP SCH ×2 (08:36→20:09)
[2019-10-10] MEDS: DESITIN 4OZ/NYSTATIN 15 GRAM MIXTURE PASTE TOP SCH ×2 (08:37→20:09)
[2019-10-10] MEDS ORDERED: LACTULOSE 20 GM/30 ML UDCUP PO ONE (09:37)
[2019-10-10] MEDS ORDERED: fentaNYL INJ 1,250 MCG in SODIUM CHLORIDE 0.9% 225 ML IV PRN (11:07)
[2019-10-10] MEDS: DEXMEDETOMIDINE 400 MCG in SODIUM CHLORIDE 0.9% 96 ML IV PRN (11:52)
[2019-10-10] MEDS: VANCOMYCIN INJ 1,500 MG in SODIUM CHLORIDE 0.9% 500 ML IV SCH ×2 (11:53→23:15)
[2019-10-10] MEDS: ACETAMINOPHEN 325 MG TABLET PO PRN (17:19)
[2019-10-10] MEDS: LEVOFLOXACIN INJ 750 MG in PREMIX 1 EACH IV SCH (17:25)
[2019-10-10] MEDS: LACTULOSE 20 GM/30 ML UDCUP PO PRN (20:09)
[2019-10-11] MEDS: DEXMEDETOMIDINE 400 MCG in SODIUM CHLORIDE 0.9% 96 ML IV PRN ×4 (01:00→20:47)
[2019-10-11] MEDS: INSULIN LISPRO 100 UNIT/ML SUBCUT SCH ×4 (01:56→17:23)
[2019-10-11 04:57] LABS: Basophils % 0.2 % (0.0-0.8); Eosinophils # 0.6 10*3/uL (0.0-0.87); Hematocrit 35.6 VOL% (35.7-47.0); Hemoglobin 10.6 GM/DL (12.0-16.0); Immature Granulocytes % 3.1 %; Immature Granulocytes Absolute 0.61 #; Lymphocytes # 2.5 10*3/uL (1.4-4.0); Lymphocytes % 12.6 % (21.3-54.2); Mean Corpuscular HGB Conc 29.8 GM/DL (32-36); Mean Corpuscular Volume 87.3 FL (87-102); Mean Platelet Volume 10.7 FL (9.6-12.0); Monocytes % 1.5 % (1.7-12.7); Neutrophils % 79.6 % (38.7-73.9); Platelet Count 179 T/CUMM (130-400); Red Blood Count 4.08 MC/CUMM (3.8-5.5); Red Cell Distribution Width 14.8 % (9.3-17.3); White Blood Count 19.9 T/CUMM (4-12)
[2019-10-11 05:05] LABS: ABG Base Excess 2.8 MMOL/L (-2.5-2.5); ABG HCO3 26.9 MMOL/L (20-26); ABG Oxygen Saturation 96.9 % (95-100); ABG PCO2 39.8 MM HG (35-48); ABG PH 7.441 (7.35-7.45); ABG PO2 90.2 MM HG (80-95); ABG TCO2 24.4 MMOL/L (23-27); Allen Test Positive; Pt O2 Delivery Device Ventilator
[2019-10-11 05:30] LABS: Atypical Lymphocytes Few; Band Neutrophils 1 % (0-10); Eosinophils 3 % (0-10); Hypochromasia 1+; Lymphocytes 11 % (20-55); Metamyelocytes 1 %; Segmented Neutrophils 84 % (50-85); Total Cells Counted 100
[2019-10-11 05:31] LABS: Microcytosis Slight; Polychromasia Slight
[2019-10-11 05:32] LABS: Platelet Estimate Adequate
[2019-10-11 06:11] LABS: Calcium 8.4 MG/DL (8.5-10.1); Osmolality,Calculated 282.3 MOS/KG (273-304)
[2019-10-11] MEDS: BENZTROPINE 1 MG TABLET PO SCH ×2 (08:28→20:50)
[2019-10-11] MEDS: ARIPiprazole 10 MG TABLET PO SCH (08:28)
[2019-10-11] MEDS: DOCUSATE SODIUM 100 MG/10 ML UDCUP NG SCH ×2 (08:28→20:50)
[2019-10-11] MEDS: DEXAMETHASONE 10 MG/1 ML VIAL IV SCH (08:28)
[2019-10-11] MEDS: POTASSIUM CHLORIDE 20 MEQ/15 ML UDCUP PER TUBE PRN ×4 (08:28→20:49)
[2019-10-11] MEDS: PANTOPRAZOLE 40 MG VIAL IV SCH (08:29)
[2019-10-11] MEDS: ARIXTRA SUBCUT SCH (08:29)
[2019-10-11] MEDS: ZINC OXIDE PASTE 113 GM TUBE TOP SCH ×2 (08:30→20:50)
[2019-10-11] MEDS: DESITIN 4OZ/NYSTATIN 15 GRAM MIXTURE PASTE TOP SCH ×2 (08:31→20:51)
[2019-10-11] MEDS: buPROPion 75 MG TABLET PO SCH ×2 (08:32→20:50)
[2019-10-11] MEDS: VANCOMYCIN INJ 1,500 MG in SODIUM CHLORIDE 0.9% 500 ML IV SCH ×2 (10:04→22:44)
[2019-10-11] MEDS: SENNA 8.6 MG TABLET PO SCH ×2 (11:09→20:50)
[2019-10-11] MEDS: NYSTATIN POWDER 15 GM BOTTLE TOP SCH ×2 (14:31→20:50)
[2019-10-11] MEDS: LEVOFLOXACIN INJ 750 MG in PREMIX 1 EACH IV SCH (17:15)
[2019-10-11] MEDS: FONDAPARINUX 10 MG/0.8 ML SYRINGE SUBCUT SCH (20:49)
[2019-10-11] MEDS: NOREPINEPHRINE 8 MG in SODIUM CHLORIDE 0.9% 242 ML IV PRN (21:00)
[2019-10-12] MEDS: ACETAMINOPHEN 325 MG TABLET PO PRN (01:14)
[2019-10-12] MEDS: INSULIN LISPRO 100 UNIT/ML SUBCUT SCH ×4 (02:01→17:29)
[2019-10-12] MEDS: DEXMEDETOMIDINE 400 MCG in SODIUM CHLORIDE 0.9% 96 ML IV PRN ×4 (02:31→19:58)
[2019-10-12 04:58] LABS: ABG Base Excess 2.3 MMOL/L (-2.5-2.5); ABG HCO3 26.3 MMOL/L (20-26); ABG Oxygen Saturation 96.8 % (95-100); ABG PCO2 38.2 MM HG (35-48); ABG PH 7.455 (7.35-7.45); ABG PO2 85.9 MM HG (80-95); ABG TCO2 27.4 MMOL/L (23-27); Allen Test Positive; Pt O2 Delivery Device Ventilator
[2019-10-12 05:30] LABS: Basophils # 0.1 10*3/uL (0.0-0.2); Basophils % 0.3 % (0.0-0.8); Eosinophils # 0.6 10*3/uL (0.0-0.87); Eosinophils % 2.7 % (0.00-10.9); Hematocrit 33.5 VOL% (35.7-47.0); Immature Granulocytes % 3.7 %; Immature Granulocytes Absolute 0.78 #; Lymphocytes # 3.1 10*3/uL (1.4-4.0); Lymphocytes % 14.6 % (21.3-54.2); Mean Corpuscular HGB Conc 29.9 GM/DL (32-36); Mean Corpuscular Volume 85.9 FL (87-102); Mean Platelet Volume 10.4 FL (9.6-12.0); Monocytes % 2.1 % (1.7-12.7); Neutrophils % 76.6 % (38.7-73.9); Platelet Count 180 T/CUMM (130-400); White Blood Count 21.2 T/CUMM (4-12)
[2019-10-12 05:46] LABS: Calcium 8.2 MG/DL (8.5-10.1); Osmolality,Calculated 285.1 MOS/KG (273-304)
[2019-10-12 05:54] LABS: Band Neutrophils 1 % (0-10); Eosinophils 2 % (0-10); Hypochromasia 1+; Lymphocytes 7 % (20-55); Microcytosis Slight; Platelet Estimate Adequate; Segmented Neutrophils 87 % (50-85); Total Cells Counted 100
[2019-10-12] MEDS: BENZTROPINE 1 MG TABLET PO SCH ×2 (08:07→20:47)
[2019-10-12] MEDS: DEXAMETHASONE 10 MG/1 ML VIAL IV SCH (08:07)
[2019-10-12] MEDS: DOCUSATE SODIUM 100 MG/10 ML UDCUP NG SCH ×2 (08:07→20:47)
[2019-10-12] MEDS: buPROPion 75 MG TABLET PO SCH ×2 (08:07→20:47)
[2019-10-12] MEDS: ARIPiprazole 10 MG TABLET PO SCH (08:07)
[2019-10-12] MEDS: SENNA 8.6 MG TABLET PO SCH ×2 (08:07→20:48)
[2019-10-12] MEDS: ZINC OXIDE PASTE 113 GM TUBE TOP SCH ×2 (08:08→20:48)
[2019-10-12] MEDS: PANTOPRAZOLE 40 MG VIAL IV SCH (08:08)
[2019-10-12] MEDS: DESITIN 4OZ/NYSTATIN 15 GRAM MIXTURE PASTE TOP SCH ×2 (08:09→22:28)
[2019-10-12] MEDS: NYSTATIN POWDER 15 GM BOTTLE TOP SCH ×3 (08:09→20:48)
[2019-10-12] MEDS ORDERED: FUROSEMIDE 40 MG/4 ML VIAL IV ONE (08:58)
[2019-10-12] MEDS: NOREPINEPHRINE 8 MG in SODIUM CHLORIDE 0.9% 242 ML IV PRN (10:44)
[2019-10-12] MEDS: CEFTAROLINE 600 MG in SODIUM CHLORIDE 0.9% 100 ML IV SCH ×2 (10:45→23:30)
[2019-10-12] MEDS: FONDAPARINUX 10 MG/0.8 ML SYRINGE SUBCUT SCH (22:28)
[2019-10-13] MEDS: DEXMEDETOMIDINE 400 MCG in SODIUM CHLORIDE 0.9% 96 ML IV PRN ×2 (02:05→08:07)
[2019-10-13] MEDS: INSULIN LISPRO 100 UNIT/ML SUBCUT SCH ×4 (02:20→17:50)
[2019-10-13 04:26] LABS: Basophils % 0.2 % (0.0-0.8); Eosinophils # 0.4 10*3/uL (0.0-0.87); Eosinophils % 2.2 % (0.00-10.9); Hemoglobin 9.9 GM/DL (12.0-16.0); Immature Granulocytes % 2.9 %; Immature Granulocytes Absolute 0.52 #; Lymphocytes # 2.8 10*3/uL (1.4-4.0); Lymphocytes % 15.4 % (21.3-54.2); Mean Corpuscular HGB Conc 30.9 GM/DL (32-36); Mean Platelet Volume 10.6 FL (9.6-12.0); Monocytes % 2.5 % (1.7-12.7); NRBC # 0.02 10*3/uL; Neutrophils % 76.8 % (38.7-73.9); Platelet Count 183 T/CUMM (130-400); Red Blood Count 3.81 MC/CUMM (3.8-5.5); Red Cell Distribution Width 14.8 % (9.3-17.3); White Blood Count 18.2 T/CUMM (4-12)
[2019-10-13 04:36] LABS: Calcium 8.3 MG/DL (8.5-10.1); Osmolality,Calculated 284.3 MOS/KG (273-304)
[2019-10-13 04:59] LABS: ABG Base Excess 5.5 MMOL/L (-2.5-2.5); ABG HCO3 29.2 MMOL/L (20-26); ABG Oxygen Saturation 96.4 % (95-100); ABG PCO2 39.2 MM HG (35-48); ABG PO2 83.4 MM HG (80-95); ABG TCO2 30.4 MMOL/L (23-27); Allen Test Positive; Pt O2 Delivery Device Ventilator
[2019-10-13 05:01] LABS: Lymphocytes 17 % (20-55); Platelet Estimate Adequate; Segmented Neutrophils 80 % (50-85); Total Cells Counted 100
[2019-10-13 05:02] LABS: Atypical Lymphocytes Few; Hypochromasia 1+; Microcytosis Slight
[2019-10-13] MEDS: POTASSIUM CHLORIDE 20 MEQ/15 ML UDCUP PER TUBE PRN ×2 (05:25→08:05)
[2019-10-13] MEDS: ARIPiprazole 10 MG TABLET PO SCH (08:04)
[2019-10-13] MEDS: SENNA 8.6 MG TABLET PO SCH ×2 (08:04→20:34)
[2019-10-13] MEDS: BENZTROPINE 1 MG TABLET PO SCH ×2 (08:05→20:34)
[2019-10-13] MEDS: DOCUSATE SODIUM 100 MG/10 ML UDCUP NG SCH ×2 (08:05→20:34)
[2019-10-13] MEDS: PANTOPRAZOLE 40 MG VIAL IV SCH (08:05)
[2019-10-13] MEDS: buPROPion 75 MG TABLET PO SCH ×2 (08:05→20:34)
[2019-10-13] MEDS: DEXAMETHASONE 10 MG/1 ML VIAL IV SCH (08:05)
[2019-10-13] MEDS: DESITIN 4OZ/NYSTATIN 15 GRAM MIXTURE PASTE TOP SCH ×2 (08:06→20:36)
[2019-10-13] MEDS: ZINC OXIDE PASTE 113 GM TUBE TOP SCH ×2 (08:06→20:36)
[2019-10-13] MEDS: NYSTATIN POWDER 15 GM BOTTLE TOP SCH ×3 (08:06→20:36)
[2019-10-13] MEDS: CEFTAROLINE 600 MG in SODIUM CHLORIDE 0.9% 100 ML IV SCH ×2 (10:41→23:59)
[2019-10-13] MEDS ORDERED: FONDAPARINUX 2.5 MG/0.5 ML SYRINGE SUBCUT ONE (21:00)
[2019-10-13] MEDS: NOREPINEPHRINE 8 MG in SODIUM CHLORIDE 0.9% 242 ML IV PRN (22:10)
[2019-10-14] MEDS: INSULIN LISPRO 100 UNIT/ML SUBCUT SCH ×4 (01:58→17:33)
[2019-10-14 04:38] LABS: Basophils # 0.1 10*3/uL (0.0-0.2); Basophils % 0.3 % (0.0-0.8); Eosinophils # 0.3 10*3/uL (0.0-0.87); Eosinophils % 2.2 % (0.00-10.9); Hematocrit 28.4 VOL% (35.7-47.0); Hemoglobin 8.8 GM/DL (12.0-16.0); Immature Granulocytes % 3.5 %; Immature Granulocytes Absolute 0.54 #; Lymphocytes # 2.6 10*3/uL (1.4-4.0); Lymphocytes % 16.4 % (21.3-54.2); Mean Corpuscular Volume 84.5 FL (87-102); Monocytes % 2.4 % (1.7-12.7); NRBC # 0.02 10*3/uL; Neutrophils % 75.2 % (38.7-73.9); Platelet Count 176 T/CUMM (130-400); Red Blood Count 3.36 MC/CUMM (3.8-5.5); Red Cell Distribution Width 14.7 % (9.3-17.3); White Blood Count 15.6 T/CUMM (4-12)
[2019-10-14 04:56] LABS: Calcium 8.2 MG/DL (8.5-10.1); Osmolality,Calculated 278.5 MOS/KG (273-304)
[2019-10-14 05:23] LABS: Eosinophils 3 % (0-10); Lymphocytes 10 % (20-55); Platelet Estimate Adequate; Segmented Neutrophils 84 % (50-85); Total Cells Counted 100
[2019-10-14 05:24] LABS: Hypochromasia 1+
[2019-10-14 05:25] LABS: Microcytosis Slight
[2019-10-14] MEDS: NOREPINEPHRINE 8 MG in SODIUM CHLORIDE 0.9% 242 ML IV PRN ×2 (05:39→15:37)
[2019-10-14 05:53] LABS: ABG Base Excess 3.9 MMOL/L (-2.5-2.5); ABG HCO3 28.7 MMOL/L (20-26); ABG Oxygen Saturation 94.2 % (95-100); ABG PCO2 44.1 MM HG (35-48); ABG PH 7.432 (7.35-7.45); ABG PO2 73.4 MM HG (80-95); ABG TCO2 30.1 MMOL/L (23-27); Allen Test Positive; Pt O2 Delivery Device Ventilator
[2019-10-14] MEDS: BENZTROPINE 1 MG TABLET PO SCH ×2 (08:02→21:59)
[2019-10-14] MEDS: DOCUSATE SODIUM 100 MG/10 ML UDCUP NG SCH ×2 (08:02→21:59)
[2019-10-14] MEDS: ARIPiprazole 10 MG TABLET PO SCH (08:02)
[2019-10-14] MEDS: buPROPion 75 MG TABLET PO SCH ×2 (08:02→21:59)
[2019-10-14] MEDS: SENNA 8.6 MG TABLET PO SCH ×2 (08:02→21:59)
[2019-10-14] MEDS: DEXAMETHASONE 10 MG/1 ML VIAL IV SCH (08:02)
[2019-10-14] MEDS: DESITIN 4OZ/NYSTATIN 15 GRAM MIXTURE PASTE TOP SCH ×2 (08:03→22:00)
[2019-10-14] MEDS: ZINC OXIDE PASTE 113 GM TUBE TOP SCH ×2 (08:03→22:00)
[2019-10-14] MEDS: PANTOPRAZOLE 40 MG VIAL IV SCH (08:03)
[2019-10-14] MEDS: NYSTATIN POWDER 15 GM BOTTLE TOP SCH ×3 (08:04→22:00)
[2019-10-14] MEDS: POTASSIUM CHLORIDE 20 MEQ/15 ML UDCUP PER TUBE PRN ×2 (08:08→10:39)
[2019-10-14] MEDS: CEFTAROLINE 600 MG in SODIUM CHLORIDE 0.9% 100 ML IV SCH ×2 (10:37→23:15)
[2019-10-14] MEDS: FONDAPARINUX 10 MG/0.8 ML SYRINGE SUBCUT SCH (21:59)
[2019-10-15] MEDS: INSULIN LISPRO 100 UNIT/ML SUBCUT SCH ×4 (00:21→18:22)
[2019-10-15 04:31] LABS: ABG HCO3 29.9 MMOL/L (20-26); ABG Oxygen Saturation 98.2 % (95-100); ABG PCO2 38.3 MM HG (35-48); ABG PH 7.497 (7.35-7.45); ABG TCO2 27.2 MMOL/L (23-27); Allen Test Positive; Pt O2 Delivery Device Ventilator
[2019-10-15 05:04] LABS: Basophils % 0.2 % (0.0-0.8); Eosinophils # 0.4 10*3/uL (0.0-0.87); Eosinophils % 2.9 % (0.00-10.9); Hematocrit 30.2 VOL% (35.7-47.0); Hemoglobin 9.1 GM/DL (12.0-16.0); Immature Granulocytes % 4.9 %; Immature Granulocytes Absolute 0.73 #; Lymphocytes # 2.8 10*3/uL (1.4-4.0); Lymphocytes % 18.5 % (21.3-54.2); Mean Corpuscular HGB Conc 30.1 GM/DL (32-36); Mean Corpuscular Volume 86.8 FL (87-102); Mean Platelet Volume 9.9 FL (9.6-12.0); Monocytes % 3.1 % (1.7-12.7); NRBC # 0.07 10*3/uL; Neutrophils % 70.4 % (38.7-73.9); Platelet Count 220 T/CUMM (130-400); Red Blood Count 3.48 MC/CUMM (3.8-5.5); Red Cell Distribution Width 14.9 % (9.3-17.3)
[2019-10-15 05:16] LABS: Calcium 8.1 MG/DL (8.5-10.1)
[2019-10-15 05:48] LABS: Eosinophils 2 % (0-10); Lymphocytes 23 % (20-55); Segmented Neutrophils 72 % (50-85); Total Cells Counted 100
[2019-10-15 05:49] LABS: Hypochromasia 1+; Microcytosis 1+
[2019-10-15] MEDS: POTASSIUM CHLORIDE 20 MEQ/15 ML UDCUP PER TUBE PRN ×3 (05:53→12:00)
[2019-10-15] MEDS: DEXAMETHASONE 10 MG/1 ML VIAL IV SCH (09:30)
[2019-10-15] MEDS: PANTOPRAZOLE 40 MG VIAL IV SCH (09:30)
[2019-10-15] MEDS: NYSTATIN POWDER 15 GM BOTTLE TOP SCH ×3 (09:30→20:30)
[2019-10-15] MEDS: DOCUSATE SODIUM 100 MG/10 ML UDCUP NG SCH ×2 (09:30→20:29)
[2019-10-15] MEDS: ARIPiprazole 10 MG TABLET PO SCH (09:30)
[2019-10-15] MEDS: buPROPion 75 MG TABLET PO SCH ×2 (09:30→20:29)
[2019-10-15] MEDS: DESITIN 4OZ/NYSTATIN 15 GRAM MIXTURE PASTE TOP SCH ×2 (09:30→22:36)
[2019-10-15] MEDS: ZINC OXIDE PASTE 113 GM TUBE TOP SCH ×2 (09:30→20:30)
[2019-10-15] MEDS: BENZTROPINE 1 MG TABLET PO SCH ×2 (09:30→20:29)
[2019-10-15] MEDS: MENTHOL/ZINC OXIDE OINT 71 GM JAR TOP SCH ×2 (09:30→20:28)
[2019-10-15] MEDS: SENNA 8.6 MG TABLET PO SCH ×2 (09:30→20:30)
[2019-10-15] MEDS: CEFTAROLINE 600 MG in SODIUM CHLORIDE 0.9% 100 ML IV SCH ×2 (12:57→23:39)
[2019-10-15] MEDS ORDERED: FUROSEMIDE 40 MG/4 ML VIAL IV ONE (14:15)
[2019-10-15] MEDS: NOREPINEPHRINE 8 MG in SODIUM CHLORIDE 0.9% 242 ML IV PRN (15:00)
[2019-10-15] MEDS: FONDAPARINUX 10 MG/0.8 ML SYRINGE SUBCUT SCH (20:29)
[2019-10-16] MEDS: INSULIN LISPRO 100 UNIT/ML SUBCUT SCH ×4 (02:50→17:29)
[2019-10-16 04:02] LABS: ABG Base Excess 7.7 MMOL/L (-2.5-2.5); ABG HCO3 31.5 MMOL/L (20-26); ABG Oxygen Saturation 98.1 % (95-100); ABG PCO2 39.8 MM HG (35-48); ABG PH 7.506 (7.35-7.45); ABG PO2 99.9 MM HG (80-95); ABG TCO2 28.7 MMOL/L (23-27); Allen Test Positive; Pt O2 Delivery Device Ventilator
[2019-10-16 04:34] LABS: Basophils % 0.2 % (0.0-0.8); Eosinophils # 0.4 10*3/uL (0.0-0.87); Eosinophils % 2.7 % (0.00-10.9); Hematocrit 30.2 VOL% (35.7-47.0); Hemoglobin 9.3 GM/DL (12.0-16.0); Immature Granulocytes Absolute 0.67 #; Lymphocytes # 2.4 10*3/uL (1.4-4.0); Lymphocytes % 17.9 % (21.3-54.2); Mean Corpuscular HGB Conc 30.8 GM/DL (32-36); Mean Corpuscular Volume 85.1 FL (87-102); Mean Platelet Volume 9.4 FL (9.6-12.0); Monocytes % 2.7 % (1.7-12.7); NRBC # 0.07 10*3/uL; Neutrophils % 71.5 % (38.7-73.9); Platelet Count 219 T/CUMM (130-400); Red Blood Count 3.55 MC/CUMM (3.8-5.5); Red Cell Distribution Width 14.8 % (9.3-17.3); White Blood Count 13.5 T/CUMM (4-12)
[2019-10-16 04:53] LABS: Calcium 8.3 MG/DL (8.5-10.1); Osmolality,Calculated 277.5 MOS/KG (273-304)
[2019-10-16 05:06] LABS: Hypochromasia 1+; Lymphocytes 18 % (20-55); Microcytosis 1+; Platelet Estimate Adequate; Segmented Neutrophils 80 % (50-85); Total Cells Counted 100
[2019-10-16] MEDS: POTASSIUM CHLORIDE 20 MEQ/15 ML UDCUP PER TUBE PRN ×3 (05:42→11:29)
[2019-10-16] MEDS: ARIPiprazole 10 MG TABLET PO SCH (08:02)
[2019-10-16] MEDS: buPROPion 75 MG TABLET PO SCH ×2 (08:02→20:01)
[2019-10-16] MEDS: DEXAMETHASONE 10 MG/1 ML VIAL IV SCH (08:03)
[2019-10-16] MEDS: MENTHOL/ZINC OXIDE OINT 71 GM JAR TOP SCH (08:03)
[2019-10-16] MEDS: SENNA 8.6 MG TABLET PO SCH ×2 (08:03→20:00)
[2019-10-16] MEDS: BENZTROPINE 1 MG TABLET PO SCH ×2 (08:03→20:00)
[2019-10-16] MEDS: DOCUSATE SODIUM 100 MG/10 ML UDCUP NG SCH ×2 (08:03→20:00)
[2019-10-16] MEDS: PANTOPRAZOLE 40 MG VIAL IV SCH (08:03)
[2019-10-16] MEDS: ZINC OXIDE PASTE 113 GM TUBE TOP SCH ×2 (08:03→20:02)
[2019-10-16] MEDS: NYSTATIN POWDER 15 GM BOTTLE TOP SCH ×3 (08:04→20:03)
[2019-10-16] MEDS: DESITIN 4OZ/NYSTATIN 15 GRAM MIXTURE PASTE TOP SCH ×2 (08:04→20:01)
[2019-10-16] MEDS: CEFTAROLINE 600 MG in SODIUM CHLORIDE 0.9% 100 ML IV SCH ×2 (11:24→23:31)
[2019-10-16] MEDS: PENICILLIN G POTASSIUM INJ 4,000,000 UNIT in SODIUM CHLORIDE 0.9% 100 ML IV SCH ×2 (16:37→21:57)
[2019-10-16] MEDS: NOREPINEPHRINE 8 MG in SODIUM CHLORIDE 0.9% 242 ML IV PRN ×2 (19:59→21:57)
[2019-10-16] MEDS: FONDAPARINUX 10 MG/0.8 ML SYRINGE SUBCUT SCH (20:02)
[2019-10-17] MEDS: INSULIN LISPRO 100 UNIT/ML SUBCUT SCH ×4 (00:18→17:32)
[2019-10-17 04:07] LABS: Basophils % 0.3 % (0.0-0.8); Eosinophils # 0.3 10*3/uL (0.0-0.87); Eosinophils % 2.1 % (0.00-10.9); Hematocrit 30.6 VOL% (35.7-47.0); Hemoglobin 9.4 GM/DL (12.0-16.0); Immature Granulocytes % 4.7 %; Immature Granulocytes Absolute 0.63 #; Lymphocytes # 2.1 10*3/uL (1.4-4.0); Lymphocytes % 15.7 % (21.3-54.2); Mean Corpuscular HGB Conc 30.7 GM/DL (32-36); Mean Corpuscular Volume 85.5 FL (87-102); Mean Platelet Volume 9.7 FL (9.6-12.0); Monocytes % 3.7 % (1.7-12.7); NRBC # 0.07 10*3/uL; Neutrophils % 73.5 % (38.7-73.9); Platelet Count 233 T/CUMM (130-400); Red Blood Count 3.58 MC/CUMM (3.8-5.5); Red Cell Distribution Width 15.2 % (9.3-17.3); White Blood Count 13.4 T/CUMM (4-12)
[2019-10-17] MEDS: PENICILLIN G POTASSIUM INJ 4,000,000 UNIT in SODIUM CHLORIDE 0.9% 100 ML IV SCH ×4 (04:07→22:46)
[2019-10-17 04:16] LABS: Calcium 8.4 MG/DL (8.5-10.1); Osmolality,Calculated 280.4 MOS/KG (273-304)
[2019-10-17 04:32] LABS: Band Neutrophils 2 % (0-10); Lymphocytes 5 % (20-55); Platelet Estimate Normal; Segmented Neutrophils 91 % (50-85); Total Cells Counted 100
[2019-10-17 04:33] LABS: Polychromasia Few
[2019-10-17 04:34] LABS: Microcytosis 2+
[2019-10-17 05:26] LABS: ABG Base Excess 0.7 MMOL/L (-2.5-2.5); ABG HCO3 25.7 MMOL/L (20-26); ABG Oxygen Saturation 98.2 % (95-100); ABG PCO2 42.7 MM HG (35-48); ABG PH 7.397 (7.35-7.45); ABG PO2 124.3 MM HG (80-95); Allen Test Positive; Pt O2 Delivery Device Ventilator
[2019-10-17] MEDS: SENNA 8.6 MG TABLET PO SCH ×2 (08:01→19:56)
[2019-10-17] MEDS: BENZTROPINE 1 MG TABLET PO SCH ×2 (08:02→19:56)
[2019-10-17] MEDS: DOCUSATE SODIUM 100 MG/10 ML UDCUP NG SCH ×2 (08:02→19:56)
[2019-10-17] MEDS: buPROPion 75 MG TABLET PO SCH ×2 (08:02→19:56)
[2019-10-17] MEDS: ARIPiprazole 10 MG TABLET PO SCH (08:02)
[2019-10-17] MEDS: DEXAMETHASONE 10 MG/1 ML VIAL IV SCH (08:02)
[2019-10-17] MEDS: PANTOPRAZOLE 40 MG VIAL IV SCH (08:02)
[2019-10-17] MEDS: NYSTATIN POWDER 15 GM BOTTLE TOP SCH ×3 (08:03→19:56)
[2019-10-17] MEDS: ZINC OXIDE PASTE 113 GM TUBE TOP SCH ×2 (08:03→19:56)
[2019-10-17] MEDS: MENTHOL/ZINC OXIDE OINT 71 GM JAR TOP SCH (08:03)
[2019-10-17] MEDS: DESITIN 4OZ/NYSTATIN 15 GRAM MIXTURE PASTE TOP SCH ×2 (08:04→21:36)
[2019-10-17] MEDS: CEFTAROLINE 600 MG in SODIUM CHLORIDE 0.9% 100 ML IV SCH (11:29)
[2019-10-17] MEDS: FONDAPARINUX 10 MG/0.8 ML SYRINGE SUBCUT SCH (21:33)
[2019-10-18] MEDS: INSULIN LISPRO 100 UNIT/ML SUBCUT SCH ×4 (00:12→18:09)
[2019-10-18 04:47] LABS: Basophils # 0.1 10*3/uL (0.0-0.2); Basophils % 0.3 % (0.0-0.8); Eosinophils # 0.3 10*3/uL (0.0-0.87); Eosinophils % 2.1 % (0.00-10.9); Hematocrit 31.6 VOL% (35.7-47.0); Hemoglobin 9.5 GM/DL (12.0-16.0); Immature Granulocytes % 5.2 %; Immature Granulocytes Absolute 0.76 #; Lymphocytes # 2.6 10*3/uL (1.4-4.0); Lymphocytes % 17.9 % (21.3-54.2); Mean Corpuscular HGB Conc 30.1 GM/DL (32-36); Mean Corpuscular Volume 87.1 FL (87-102); Mean Platelet Volume 9.4 FL (9.6-12.0); Monocytes % 3.4 % (1.7-12.7); NRBC # 0.05 10*3/uL; Neutrophils % 71.1 % (38.7-73.9); Platelet Count 254 T/CUMM (130-400); Red Blood Count 3.63 MC/CUMM (3.8-5.5); Red Cell Distribution Width 15.4 % (9.3-17.3); White Blood Count 14.6 T/CUMM (4-12)
[2019-10-18] MEDS: PENICILLIN G POTASSIUM INJ 4,000,000 UNIT in SODIUM CHLORIDE 0.9% 100 ML IV SCH ×4 (04:55→23:47)
[2019-10-18] MEDS: NOREPINEPHRINE 8 MG in SODIUM CHLORIDE 0.9% 242 ML IV PRN (05:17)
[2019-10-18 05:22] LABS: Lymphocytes 9 % (20-55); Platelet Estimate Normal; Segmented Neutrophils 89 % (50-85); Total Cells Counted 100
[2019-10-18 05:41] LABS: Calcium 8.6 MG/DL (8.5-10.1); Osmolality,Calculated 280.4 MOS/KG (273-304)
[2019-10-18 05:44] LABS: ABG Base Excess -0.9 MMOL/L (-2.5-2.5); ABG Oxygen Saturation 96.5 % (95-100); ABG PCO2 47.1 MM HG (35-48); ABG PH 7.343 (7.35-7.45); ABG PO2 99.8 MM HG (80-95); ABG TCO2 26.5 MMOL/L (23-27); Allen Test Positive; Pt O2 Delivery Device Ventilator
[2019-10-18] MEDS: POTASSIUM CHLORIDE 20 MEQ/15 ML UDCUP PER TUBE PRN ×3 (09:20→15:15)
[2019-10-18] MEDS: DOCUSATE SODIUM 100 MG/10 ML UDCUP NG SCH ×2 (09:29→20:04)
[2019-10-18] MEDS: BENZTROPINE 1 MG TABLET PO SCH ×2 (09:29→20:05)
[2019-10-18] MEDS: ARIPiprazole 10 MG TABLET PO SCH (09:29)
[2019-10-18] MEDS: DEXAMETHASONE 10 MG/1 ML VIAL IV SCH (09:29)
[2019-10-18] MEDS: MENTHOL/ZINC OXIDE OINT 71 GM JAR TOP SCH (09:29)
[2019-10-18] MEDS: ZINC OXIDE PASTE 113 GM TUBE TOP SCH ×2 (09:29→22:13)
[2019-10-18] MEDS: SENNA 8.6 MG TABLET PO SCH ×2 (09:30→20:06)
[2019-10-18] MEDS: PANTOPRAZOLE 40 MG VIAL IV SCH (09:30)
[2019-10-18] MEDS: NYSTATIN POWDER 15 GM BOTTLE TOP SCH ×3 (09:30→22:14)
[2019-10-18] MEDS: buPROPion 75 MG TABLET PO SCH ×2 (09:30→20:05)
[2019-10-18] MEDS: DESITIN 4OZ/NYSTATIN 15 GRAM MIXTURE PASTE TOP SCH ×2 (09:30→22:14)
[2019-10-18] MEDS: FUROSEMIDE 40 MG/4 ML VIAL IV SCH (18:07)
[2019-10-18] MEDS: FONDAPARINUX 10 MG/0.8 ML SYRINGE SUBCUT SCH (20:11)
[2019-10-19] MEDS: INSULIN LISPRO 100 UNIT/ML SUBCUT SCH ×4 (00:10→18:26)
[2019-10-19 03:30] LABS: ABG Base Excess 0.6 MMOL/L (-2.5-2.5); ABG HCO3 24.9 MMOL/L (20-26); ABG Oxygen Saturation 98.2 % (95-100); ABG PCO2 38.6 MM HG (35-48); ABG PH 7.427 (7.35-7.45); ABG PO2 118.8 MM HG (80-95); ABG TCO2 26.1 MMOL/L (23-27); Allen Test Positive; Pt O2 Delivery Device Ventilator
[2019-10-19] MEDS: PENICILLIN G POTASSIUM INJ 4,000,000 UNIT in SODIUM CHLORIDE 0.9% 100 ML IV SCH ×4 (04:23→23:18)
[2019-10-19 04:29] LABS: Basophils # 0.1 10*3/uL (0.0-0.2); Basophils % 0.5 % (0.0-0.8); Eosinophils # 0.4 10*3/uL (0.0-0.87); Eosinophils % 2.4 % (0.00-10.9); Hematocrit 31.6 VOL% (35.7-47.0); Hemoglobin 9.8 GM/DL (12.0-16.0); Immature Granulocytes % 4.1 %; Immature Granulocytes Absolute 0.62 #; Lymphocytes # 2.7 10*3/uL (1.4-4.0); Lymphocytes % 17.7 % (21.3-54.2); Mean Corpuscular Volume 85.9 FL (87-102); Mean Platelet Volume 9.2 FL (9.6-12.0); Monocytes % 3.7 % (1.7-12.7); NRBC # 0.08 10*3/uL; Neutrophils % 71.6 % (38.7-73.9); Platelet Count 291 T/CUMM (130-400); Red Blood Count 3.68 MC/CUMM (3.8-5.5); Red Cell Distribution Width 15.6 % (9.3-17.3); White Blood Count 15.3 T/CUMM (4-12)
[2019-10-19 04:55] LABS: Calcium 8.6 MG/DL (8.5-10.1); Osmolality,Calculated 282.4 MOS/KG (273-304)
[2019-10-19 04:57] LABS: Eosinophils 4 % (0-10); Hypochromasia 1+; Lymphocytes 14 % (20-55); Microcytosis 1+; Polychromasia Slight; Segmented Neutrophils 78 % (50-85); Total Cells Counted 100
[2019-10-19] MEDS: POTASSIUM CHLORIDE 20 MEQ/15 ML UDCUP PER TUBE PRN ×3 (05:26→12:47)
[2019-10-19] MEDS: DOCUSATE SODIUM 100 MG/10 ML UDCUP NG SCH ×2 (08:31→20:01)
[2019-10-19] MEDS: DEXAMETHASONE 10 MG/1 ML VIAL IV SCH (08:34)
[2019-10-19] MEDS: PANTOPRAZOLE 40 MG VIAL IV SCH (08:35)
[2019-10-19] MEDS: buPROPion 75 MG TABLET PO SCH ×2 (08:35→20:38)
[2019-10-19] MEDS: BENZTROPINE 1 MG TABLET PO SCH ×2 (08:35→20:01)
[2019-10-19] MEDS: ARIPiprazole 10 MG TABLET PO SCH (08:35)
[2019-10-19] MEDS: SENNA 8.6 MG TABLET PO SCH ×2 (08:37→20:01)
[2019-10-19] MEDS: ZINC OXIDE PASTE 113 GM TUBE TOP SCH ×2 (09:34→20:38)
[2019-10-19] MEDS: NYSTATIN POWDER 15 GM BOTTLE TOP SCH ×3 (09:34→20:38)
[2019-10-19] MEDS: DESITIN 4OZ/NYSTATIN 15 GRAM MIXTURE PASTE TOP SCH ×2 (09:34→20:38)
[2019-10-19] MEDS: FUROSEMIDE 40 MG/4 ML VIAL IV SCH ×2 (09:34→16:45)
[2019-10-19] MEDS: MENTHOL/ZINC OXIDE OINT 71 GM JAR TOP SCH (09:34)
[2019-10-19] MEDS: NOREPINEPHRINE 8 MG in SODIUM CHLORIDE 0.9% 242 ML IV PRN (17:11)
[2019-10-19] MEDS: FONDAPARINUX 10 MG/0.8 ML SYRINGE SUBCUT SCH (20:38)
[2019-10-20] MEDS: INSULIN LISPRO 100 UNIT/ML SUBCUT SCH ×4 (00:45→17:11)
[2019-10-20 03:26] LABS: ABG Base Excess 1.9 MMOL/L (-2.5-2.5); ABG HCO3 25.4 MMOL/L (20-26); ABG Oxygen Saturation 98.5 % (95-100); ABG PCO2 35.8 MM HG (35-48); ABG PH 7.469 (7.35-7.45); ABG PO2 125.6 MM HG (80-95); ABG TCO2 26.5 MMOL/L (23-27)
[2019-10-20 04:17] LABS: Basophils # 0.1 10*3/uL (0.0-0.2); Basophils % 0.3 % (0.0-0.8); Eosinophils # 0.3 10*3/uL (0.0-0.87); Eosinophils % 2.2 % (0.00-10.9); Hematocrit 32.3 VOL% (35.7-47.0); Hemoglobin 9.9 GM/DL (12.0-16.0); Immature Granulocytes % 2.7 %; Immature Granulocytes Absolute 0.41 #; Lymphocytes % 19.7 % (21.3-54.2); Mean Corpuscular HGB Conc 30.7 GM/DL (32-36); Mean Corpuscular Volume 85.7 FL (87-102); Mean Platelet Volume 9.2 FL (9.6-12.0); Monocytes % 3.7 % (1.7-12.7); NRBC # 0.04 10*3/uL; Neutrophils % 71.4 % (38.7-73.9); Platelet Count 293 T/CUMM (130-400); Red Blood Count 3.77 MC/CUMM (3.8-5.5); Red Cell Distribution Width 16.2 % (9.3-17.3); White Blood Count 15.1 T/CUMM (4-12)
[2019-10-20 04:31] LABS: Calcium 8.7 MG/DL (8.5-10.1); Osmolality,Calculated 281.5 MOS/KG (273-304)
[2019-10-20] MEDS: PENICILLIN G POTASSIUM INJ 4,000,000 UNIT in SODIUM CHLORIDE 0.9% 100 ML IV SCH ×4 (05:37→23:35)
[2019-10-20] MEDS: POTASSIUM CHLORIDE 20 MEQ/15 ML UDCUP PER TUBE PRN ×4 (05:49→11:08)
[2019-10-20] MEDS: FUROSEMIDE 40 MG/4 ML VIAL IV SCH ×2 (07:32→15:07)
[2019-10-20] MEDS: SENNA 8.6 MG TABLET PO SCH ×2 (08:20→21:32)
[2019-10-20] MEDS: PANTOPRAZOLE 40 MG VIAL IV SCH (08:20)
[2019-10-20] MEDS: buPROPion 75 MG TABLET PO SCH ×2 (08:20→21:32)
[2019-10-20] MEDS: DOCUSATE SODIUM 100 MG/10 ML UDCUP NG SCH ×2 (08:20→21:32)
[2019-10-20] MEDS: BENZTROPINE 1 MG TABLET PO SCH ×2 (08:20→21:32)
[2019-10-20] MEDS: ARIPiprazole 10 MG TABLET PO SCH (08:20)
[2019-10-20] MEDS: DEXAMETHASONE 10 MG/1 ML VIAL IV SCH (08:23)
[2019-10-20] MEDS: MENTHOL/ZINC OXIDE OINT 71 GM JAR TOP SCH (08:27)
[2019-10-20] MEDS: DESITIN 4OZ/NYSTATIN 15 GRAM MIXTURE PASTE TOP SCH ×2 (08:27→21:32)
[2019-10-20] MEDS: ZINC OXIDE PASTE 113 GM TUBE TOP SCH ×2 (08:28→21:32)
[2019-10-20] MEDS: NYSTATIN POWDER 15 GM BOTTLE TOP SCH ×3 (08:28→21:32)
[2019-10-20] MEDS ORDERED: MAGNESIUM SULF RIDER 2 GM in PREMIX 1 EACH IV ONE (09:00)
[2019-10-20] MEDS ORDERED: POTASSIUM CHLORIDE RIDER 100 ML IV ONE (09:11)
[2019-10-20] MEDS ORDERED: POTASSIUM CHLORIDE RIDER 20 MEQ in PREMIX 1 EACH IV ONE (11:00)
[2019-10-20] MEDS: SKIN HEALING OINT (AQUAPHOR) 50 GM TUBE TOP PRN (12:05)
[2019-10-20] MEDS: FONDAPARINUX 10 MG/0.8 ML SYRINGE SUBCUT SCH (21:32)
[2019-10-20] MEDS: NYSTATIN 500,000 UNIT/5 ML UDCUP SWISH/SWAL SCH (21:32)
[2019-10-21] MEDS: NOREPINEPHRINE 8 MG in SODIUM CHLORIDE 0.9% 242 ML IV PRN (00:40)
[2019-10-21] MEDS: INSULIN LISPRO 100 UNIT/ML SUBCUT SCH ×4 (00:47→17:44)
[2019-10-21] MEDS: PENICILLIN G POTASSIUM INJ 4,000,000 UNIT in SODIUM CHLORIDE 0.9% 100 ML IV SCH ×4 (04:20→22:08)
[2019-10-21 04:22] LABS: ABG Base Excess 2.9 MMOL/L (-2.5-2.5); ABG Oxygen Saturation 98.9 % (95-100); ABG PCO2 35.7 MM HG (35-48); ABG PH 7.476 (7.35-7.45); ABG TCO2 23.9 MMOL/L (23-27); Allen Test Positive; Pt O2 Delivery Device Ventilator
[2019-10-21 05:08] LABS: Calcium 8.6 MG/DL (8.5-10.1); Osmolality,Calculated 285.3 MOS/KG (273-304)
[2019-10-21] MEDS: POTASSIUM CHLORIDE 20 MEQ/15 ML UDCUP PER TUBE PRN ×4 (06:30→22:09)
[2019-10-21] MEDS: FUROSEMIDE 40 MG/4 ML VIAL IV SCH ×2 (08:12→15:37)
[2019-10-21] MEDS: PANTOPRAZOLE 40 MG VIAL IV SCH (08:12)
[2019-10-21] MEDS: DOCUSATE SODIUM 100 MG/10 ML UDCUP NG SCH ×2 (08:12→20:11)
[2019-10-21] MEDS: NYSTATIN 500,000 UNIT/5 ML UDCUP SWISH/SWAL SCH (08:12)
[2019-10-21] MEDS: DEXAMETHASONE 10 MG/1 ML VIAL IV SCH (08:12)
[2019-10-21] MEDS: BENZTROPINE 1 MG TABLET PO SCH ×2 (08:13→20:12)
[2019-10-21] MEDS: ZINC OXIDE PASTE 113 GM TUBE TOP SCH ×2 (08:13→20:17)
[2019-10-21] MEDS: DESITIN 4OZ/NYSTATIN 15 GRAM MIXTURE PASTE TOP SCH ×2 (08:13→20:17)
[2019-10-21] MEDS: ARIPiprazole 10 MG TABLET PO SCH (08:13)
[2019-10-21] MEDS: buPROPion 75 MG TABLET PO SCH ×2 (08:13→20:12)
[2019-10-21] MEDS: NYSTATIN POWDER 15 GM BOTTLE TOP SCH ×3 (08:13→20:18)
[2019-10-21] MEDS: SENNA 8.6 MG TABLET PO SCH ×2 (08:13→20:12)
[2019-10-21] MEDS: MENTHOL/ZINC OXIDE OINT 71 GM JAR TOP SCH (08:13)
[2019-10-21 10:34] LABS: Basophils % 0.2 % (0.0-0.8); Eosinophils # 0.3 10*3/uL (0.0-0.87); Eosinophils % 2.3 % (0.00-10.9); Hematocrit 31.8 VOL% (35.7-47.0); Hemoglobin 9.7 GM/DL (12.0-16.0); Immature Granulocytes % 1.5 %; Immature Granulocytes Absolute 0.21 #; Lymphocytes # 2.8 10*3/uL (1.4-4.0); Lymphocytes % 20.6 % (21.3-54.2); Mean Corpuscular HGB Conc 30.5 GM/DL (32-36); Mean Corpuscular Volume 86.2 FL (87-102); Mean Platelet Volume 9.4 FL (9.6-12.0); Monocytes % 3.4 % (1.7-12.7); NRBC # 0.03 10*3/uL; Platelet Count 301 T/CUMM (130-400); Red Blood Count 3.69 MC/CUMM (3.8-5.5); Red Cell Distribution Width 16.8 % (9.3-17.3); White Blood Count 13.7 T/CUMM (4-12)
[2019-10-21 10:53] LABS: Eosinophils 5 % (0-10); Lymphocytes 19 % (20-55); Nucleated Red Blood Cells 1 (0-5); Platelet Estimate Adequate; Segmented Neutrophils 71 % (50-85); Total Cells Counted 100
[2019-10-21 10:54] LABS: Hypochromasia 1+; Microcytosis Slight
[2019-10-21] MEDS: MICAFUNGIN 100 MG in SODIUM CHLORIDE 0.9% 100 ML IV SCH (13:19)
[2019-10-21] MEDS ORDERED: FONDAPARINUX 2.5 MG/0.5 ML SYRINGE SUBCUT ONE ×2 (21:00)
[2019-10-22] MEDS: INSULIN LISPRO 100 UNIT/ML SUBCUT SCH ×4 (00:02→17:24)
[2019-10-22] MEDS: PENICILLIN G POTASSIUM INJ 4,000,000 UNIT in SODIUM CHLORIDE 0.9% 100 ML IV SCH (04:37)
[2019-10-22 05:00] LABS: ABG Base Excess 3.3 MMOL/L (-2.5-2.5); ABG HCO3 25.8 MMOL/L (20-26); ABG Oxygen Saturation 98.8 % (95-100); ABG PCO2 31.7 MM HG (35-48); ABG PH 7.529 (7.35-7.45); ABG TCO2 26.8 MMOL/L (23-27)
[2019-10-22 05:10] LABS: Basophils % 0.3 % (0.0-0.8); Eosinophils # 0.2 10*3/uL (0.0-0.87); Eosinophils % 1.5 % (0.00-10.9); Hematocrit 30.5 VOL% (35.7-47.0); Hemoglobin 9.4 GM/DL (12.0-16.0); Immature Granulocytes % 1.6 %; Immature Granulocytes Absolute 0.19 #; Lymphocytes # 2.8 10*3/uL (1.4-4.0); Lymphocytes % 23.9 % (21.3-54.2); Mean Corpuscular HGB Conc 30.8 GM/DL (32-36); Mean Corpuscular Volume 85.7 FL (87-102); Mean Platelet Volume 9.3 FL (9.6-12.0); Monocytes % 4.3 % (1.7-12.7); NRBC # 0.02 10*3/uL; Neutrophils % 68.4 % (38.7-73.9); Platelet Count 292 T/CUMM (130-400); Red Blood Count 3.56 MC/CUMM (3.8-5.5); Red Cell Distribution Width 17.1 % (9.3-17.3); White Blood Count 11.8 T/CUMM (4-12)
[2019-10-22 05:32] LABS: Calcium 8.4 MG/DL (8.5-10.1); Osmolality,Calculated 285.4 MOS/KG (273-304)
[2019-10-22] MEDS: POTASSIUM CHLORIDE 20 MEQ/15 ML UDCUP PER TUBE PRN ×3 (05:59→11:41)
[2019-10-22] MEDS: DEXAMETHASONE 10 MG/1 ML VIAL IV SCH (08:17)
[2019-10-22] MEDS: PANTOPRAZOLE 40 MG VIAL IV SCH (08:17)
[2019-10-22] MEDS: FUROSEMIDE 40 MG/4 ML VIAL IV SCH ×2 (08:17→15:33)
[2019-10-22] MEDS: ARIPiprazole 10 MG TABLET PO SCH (08:18)
[2019-10-22] MEDS: buPROPion 75 MG TABLET PO SCH ×2 (08:18→20:04)
[2019-10-22] MEDS: BENZTROPINE 1 MG TABLET PO SCH ×2 (08:18→20:04)
[2019-10-22] MEDS: MENTHOL/ZINC OXIDE OINT 71 GM JAR TOP SCH (08:18)
[2019-10-22] MEDS: SENNA 8.6 MG TABLET PO SCH ×2 (08:18→20:04)
[2019-10-22] MEDS: DOCUSATE SODIUM 100 MG/10 ML UDCUP NG SCH ×2 (08:18→20:04)
[2019-10-22] MEDS: NYSTATIN POWDER 15 GM BOTTLE TOP SCH ×3 (08:19→20:06)
[2019-10-22] MEDS: ZINC OXIDE PASTE 113 GM TUBE TOP SCH ×2 (08:19→20:05)
[2019-10-22] MEDS: DESITIN 4OZ/NYSTATIN 15 GRAM MIXTURE PASTE TOP SCH ×2 (08:19→20:05)
[2019-10-22] MEDS: AMPICILLIN/SULBACTAM 3,000 MG in SODIUM CHLORIDE 0.9% 100 ML IV SCH ×3 (10:26→22:29)
[2019-10-22] MEDS: MICAFUNGIN 100 MG in SODIUM CHLORIDE 0.9% 100 ML IV SCH (13:23)
[2019-10-22] MEDS: APIXABAN 5 MG TABLET PO SCH (20:04)
[2019-10-22] MEDS ORDERED: FONDAPARINUX 10 MG/0.8 ML SYRINGE SUBCUT SCH (21:00)
[2019-10-23] MEDS: INSULIN LISPRO 100 UNIT/ML SUBCUT SCH ×5 (00:09→23:56)
[2019-10-23] MEDS: AMPICILLIN/SULBACTAM 3,000 MG in SODIUM CHLORIDE 0.9% 100 ML IV SCH ×4 (04:25→22:09)
[2019-10-23 04:28] LABS: ABG Base Excess 5.7 MMOL/L (-2.5-2.5); ABG HCO3 29.6 MMOL/L (20-26); ABG Oxygen Saturation 99.6 % (95-100); ABG PCO2 35.2 MM HG (35-48); ABG TCO2 26.1 MMOL/L (23-27); Allen Test Positive; Pt O2 Delivery Device Ventilator
[2019-10-23 04:49] LABS: Basophils % 0.2 % (0.0-0.8); Eosinophils # 0.2 10*3/uL (0.0-0.87); Eosinophils % 1.8 % (0.00-10.9); Hemoglobin 9.4 GM/DL (12.0-16.0); Immature Granulocytes % 0.9 %; Immature Granulocytes Absolute 0.12 #; Lymphocytes # 2.8 10*3/uL (1.4-4.0); Lymphocytes % 21.8 % (21.3-54.2); Mean Corpuscular HGB Conc 30.3 GM/DL (32-36); Mean Corpuscular Volume 87.1 FL (87-102); Mean Platelet Volume 9.1 FL (9.6-12.0); NRBC # 0.02 10*3/uL; Neutrophils % 70.3 % (38.7-73.9); Platelet Count 286 T/CUMM (130-400); Red Blood Count 3.56 MC/CUMM (3.8-5.5); Red Cell Distribution Width 17.6 % (9.3-17.3); White Blood Count 12.8 T/CUMM (4-12)
[2019-10-23 05:12] LABS: Calcium 8.9 MG/DL (8.5-10.1); Osmolality,Calculated 284.5 MOS/KG (273-304)
[2019-10-23] MEDS: POTASSIUM CHLORIDE 20 MEQ/15 ML UDCUP PER TUBE PRN ×5 (05:57→20:09)
[2019-10-23] MEDS: APIXABAN 5 MG TABLET PO SCH ×2 (08:03→20:22)
[2019-10-23] MEDS: PANTOPRAZOLE 40 MG VIAL IV SCH (08:04)
[2019-10-23] MEDS: FUROSEMIDE 40 MG/4 ML VIAL IV SCH ×2 (08:04→17:24)
[2019-10-23] MEDS: ARIPiprazole 10 MG TABLET PO SCH (08:04)
[2019-10-23] MEDS: BENZTROPINE 1 MG TABLET PO SCH ×2 (08:04→20:09)
[2019-10-23] MEDS: SENNA 8.6 MG TABLET PO SCH ×2 (08:04→20:09)
[2019-10-23] MEDS: DOCUSATE SODIUM 100 MG/10 ML UDCUP NG SCH ×2 (08:04→20:09)
[2019-10-23] MEDS: buPROPion 75 MG TABLET PO SCH ×2 (08:04→20:09)
[2019-10-23] MEDS: DESITIN 4OZ/NYSTATIN 15 GRAM MIXTURE PASTE TOP SCH ×2 (08:05→20:23)
[2019-10-23] MEDS: MENTHOL/ZINC OXIDE OINT 71 GM JAR TOP SCH (08:05)
[2019-10-23] MEDS: ZINC OXIDE PASTE 113 GM TUBE TOP SCH ×2 (08:05→20:22)
[2019-10-23] MEDS: NYSTATIN POWDER 15 GM BOTTLE TOP SCH ×3 (08:05→20:24)
[2019-10-23] MEDS: DEXAMETHASONE 10 MG/1 ML VIAL IV SCH (08:05)
[2019-10-23] MEDS: NOREPINEPHRINE 8 MG in SODIUM CHLORIDE 0.9% 242 ML IV PRN (09:22)
[2019-10-23] MEDS: MICAFUNGIN 100 MG in SODIUM CHLORIDE 0.9% 100 ML IV SCH (12:40)
[2019-10-23] MEDS: HALOPERIDOL 5 MG TABLET PO PRN (19:55)
[2019-10-23] MEDS: MORPHINE 4 MG/1 ML VIAL IV PRN (19:56)
[2019-10-24] MEDS: MORPHINE 4 MG/1 ML VIAL IV PRN (01:24)
[2019-10-24] MEDS: HALOPERIDOL 5 MG TABLET PO PRN ×2 (01:24→08:43)
[2019-10-24 03:24] LABS: ABG Base Excess 6.8 MMOL/L (-2.5-2.5); ABG HCO3 30.5 MMOL/L (20-26); ABG Oxygen Saturation 93.6 % (95-100); ABG PCO2 41.9 MM HG (35-48); ABG PH 7.477 (7.35-7.45); ABG PO2 68.1 MM HG (80-95); ABG TCO2 28.1 MMOL/L (23-27); Allen Test Positive; Pt O2 Delivery Device Ventilator
[2019-10-24] MEDS: AMPICILLIN/SULBACTAM 3,000 MG in SODIUM CHLORIDE 0.9% 100 ML IV SCH ×4 (04:02→22:39)
[2019-10-24 05:16] LABS: Basophils # 0.1 10*3/uL (0.0-0.2); Basophils % 0.4 % (0.0-0.8); Eosinophils # 0.2 10*3/uL (0.0-0.87); Eosinophils % 1.9 % (0.00-10.9); Hematocrit 32.4 VOL% (35.7-47.0); Immature Granulocytes Absolute 0.12 #; Lymphocytes % 24.5 % (21.3-54.2); Mean Corpuscular HGB Conc 30.9 GM/DL (32-36); Mean Corpuscular Volume 86.2 FL (87-102); Mean Platelet Volume 9.1 FL (9.6-12.0); Monocytes % 4.6 % (1.7-12.7); Neutrophils % 67.6 % (38.7-73.9); Platelet Count 278 T/CUMM (130-400); Red Blood Count 3.76 MC/CUMM (3.8-5.5); Red Cell Distribution Width 17.5 % (9.3-17.3); White Blood Count 12.3 T/CUMM (4-12)
[2019-10-24 05:28] LABS: Calcium 8.7 MG/DL (8.5-10.1); Osmolality,Calculated 283.7 MOS/KG (273-304)
[2019-10-24] MEDS: INSULIN LISPRO 100 UNIT/ML SUBCUT SCH ×3 (05:55→18:34)
[2019-10-24] MEDS: POTASSIUM CHLORIDE 20 MEQ/15 ML UDCUP PER TUBE PRN ×5 (06:15→17:17)
[2019-10-24] MEDS: APIXABAN 5 MG TABLET PO SCH ×2 (08:42→20:04)
[2019-10-24] MEDS: buPROPion 75 MG TABLET PO SCH ×2 (08:43→20:04)
[2019-10-24] MEDS: ARIPiprazole 10 MG TABLET PO SCH (08:43)
[2019-10-24] MEDS: BENZTROPINE 1 MG TABLET PO SCH ×2 (08:43→20:04)
[2019-10-24] MEDS: DOCUSATE SODIUM 100 MG/10 ML UDCUP NG SCH ×2 (08:43→20:04)
[2019-10-24] MEDS: DEXAMETHASONE 10 MG/1 ML VIAL IV SCH ×2 (08:44→10:17)
[2019-10-24] MEDS: PANTOPRAZOLE 40 MG VIAL IV SCH (08:46)
[2019-10-24] MEDS: SENNA 8.6 MG TABLET PO SCH ×2 (08:47→20:04)
[2019-10-24] MEDS: MENTHOL/ZINC OXIDE OINT 71 GM JAR TOP SCH (09:26)
[2019-10-24] MEDS: ZINC OXIDE PASTE 113 GM TUBE TOP SCH ×2 (09:26→20:04)
[2019-10-24] MEDS: NYSTATIN POWDER 15 GM BOTTLE TOP SCH ×3 (09:27→21:34)
[2019-10-24] MEDS: DESITIN 4OZ/NYSTATIN 15 GRAM MIXTURE PASTE TOP SCH ×2 (09:27→20:05)
[2019-10-24] MEDS: DEXMEDETOMIDINE 400 MCG in SODIUM CHLORIDE 0.9% 96 ML IV PRN (10:16)
[2019-10-24] MEDS ORDERED: ALBUMIN 25% 25 GM in PREMIX 1 EACH IV ONE (10:30)
[2019-10-24] MEDS: ARFORMOTEROL 15 MCG/2 ML NEB RESP TX SCH ×2 (12:57→20:15)
[2019-10-24] MEDS: MICAFUNGIN 100 MG in SODIUM CHLORIDE 0.9% 100 ML IV SCH (13:45)
[2019-10-24 16:48] LABS: ABG Base Excess 4.2 MMOL/L (-2.5-2.5); ABG HCO3 28.2 MMOL/L (20-26); ABG PH 7.427 (7.35-7.45); ABG TCO2 26.7 MMOL/L (23-27)
[2019-10-24] MEDS: FUROSEMIDE 40 MG/4 ML VIAL IV SCH (18:05)
[2019-10-25] MEDS: HALOPERIDOL 5 MG TABLET PO PRN ×2 (00:26→23:20)
[2019-10-25] MEDS: POTASSIUM CHLORIDE 20 MEQ/15 ML UDCUP PER TUBE PRN (00:26)
[2019-10-25] MEDS: INSULIN LISPRO 100 UNIT/ML SUBCUT SCH ×4 (00:40→17:38)
[2019-10-25 03:40] LABS: ABG Base Excess 4.1 MMOL/L (-2.5-2.5); ABG HCO3 28.1 MMOL/L (20-26); ABG Oxygen Saturation 95.4 % (95-100); ABG PH 7.465 (7.35-7.45); ABG PO2 77.6 MM HG (80-95); ABG TCO2 29.4 MMOL/L (23-27); Allen Test Positive; Pt O2 Delivery Device BIPAP
[2019-10-25] MEDS: AMPICILLIN/SULBACTAM 3,000 MG in SODIUM CHLORIDE 0.9% 100 ML IV SCH ×4 (04:25→22:02)
[2019-10-25 04:38] LABS: Basophils % 0.3 % (0.0-0.8); Eosinophils # 0.2 10*3/uL (0.0-0.87); Eosinophils % 1.4 % (0.00-10.9); Hematocrit 30.2 VOL% (35.7-47.0); Hemoglobin 9.2 GM/DL (12.0-16.0); Immature Granulocytes % 1.1 %; Immature Granulocytes Absolute 0.11 #; Lymphocytes # 2.5 10*3/uL (1.4-4.0); Lymphocytes % 24.4 % (21.3-54.2); Mean Corpuscular HGB Conc 30.5 GM/DL (32-36); Mean Corpuscular Volume 89.1 FL (87-102); Mean Platelet Volume 8.6 FL (9.6-12.0); Monocytes % 4.5 % (1.7-12.7); NRBC # 0.02 10*3/uL; Neutrophils % 68.3 % (38.7-73.9); Platelet Count 243 T/CUMM (130-400); Red Blood Count 3.39 MC/CUMM (3.8-5.5); Red Cell Distribution Width 18.1 % (9.3-17.3); White Blood Count 10.4 T/CUMM (4-12)
[2019-10-25 05:00] LABS: Calcium 9.2 MG/DL (8.5-10.1); Osmolality,Calculated 280.7 MOS/KG (273-304)
[2019-10-25] MEDS: ARFORMOTEROL 15 MCG/2 ML NEB RESP TX SCH ×2 (07:20→19:38)
[2019-10-25] MEDS: APIXABAN 5 MG TABLET PO SCH ×2 (08:40→21:32)
[2019-10-25] MEDS: DESITIN 4OZ/NYSTATIN 15 GRAM MIXTURE PASTE TOP SCH ×2 (08:40→21:34)
[2019-10-25] MEDS: DEXAMETHASONE 10 MG/1 ML VIAL IV SCH (08:40)
[2019-10-25] MEDS: ZINC OXIDE PASTE 113 GM TUBE TOP SCH ×2 (08:40→21:33)
[2019-10-25] MEDS: buPROPion 75 MG TABLET PO SCH ×2 (08:40→21:32)
[2019-10-25] MEDS: ARIPiprazole 10 MG TABLET PO SCH (08:40)
[2019-10-25] MEDS: NYSTATIN POWDER 15 GM BOTTLE TOP SCH ×3 (08:40→21:33)
[2019-10-25] MEDS: DOCUSATE SODIUM 100 MG/10 ML UDCUP NG SCH ×2 (08:40→21:31)
[2019-10-25] MEDS: SENNA 8.6 MG TABLET PO SCH ×2 (08:40→21:32)
[2019-10-25] MEDS: MENTHOL/ZINC OXIDE OINT 71 GM JAR TOP SCH (08:40)
[2019-10-25] MEDS: BENZTROPINE 1 MG TABLET PO SCH ×2 (08:40→21:32)
[2019-10-25] MEDS: PANTOPRAZOLE 40 MG VIAL IV SCH (08:42)
[2019-10-25] MEDS: MICAFUNGIN 100 MG in SODIUM CHLORIDE 0.9% 100 ML IV SCH (12:07)
[2019-10-25] MEDS: MORPHINE 4 MG/1 ML VIAL IV PRN ×2 (18:04→21:33)
[2019-10-25] MEDS: SKIN HEALING OINT (AQUAPHOR) 50 GM TUBE TOP PRN (22:01)
[2019-10-26] MEDS: INSULIN LISPRO 100 UNIT/ML SUBCUT SCH ×4 (03:19→18:19)
[2019-10-26 04:35] LABS: ABG Base Excess 4.1 MMOL/L (-2.5-2.5); ABG HCO3 28.1 MMOL/L (20-26); ABG Oxygen Saturation 95.6 % (95-100); ABG PCO2 41.4 MM HG (35-48); ABG PH 7.447 (7.35-7.45); ABG PO2 76.6 MM HG (80-95); ABG TCO2 25.2 MMOL/L (23-27); Allen Test Positive
[2019-10-26] MEDS: AMPICILLIN/SULBACTAM 3,000 MG in SODIUM CHLORIDE 0.9% 100 ML IV SCH ×4 (04:54→21:22)
[2019-10-26 05:14] LABS: Basophils % 0.1 % (0.0-0.8); Eosinophils # 0.3 10*3/uL (0.0-0.87); Eosinophils % 2.2 % (0.00-10.9); Hematocrit 30.8 VOL% (35.7-47.0); Hemoglobin 9.3 GM/DL (12.0-16.0); Immature Granulocytes % 0.8 %; Immature Granulocytes Absolute 0.12 #; Lymphocytes # 2.4 10*3/uL (1.4-4.0); Lymphocytes % 17.1 % (21.3-54.2); Mean Corpuscular HGB Conc 30.2 GM/DL (32-36); Mean Corpuscular Volume 88.5 FL (87-102); Monocytes % 4.9 % (1.7-12.7); NRBC # 0.03 10*3/uL; Neutrophils % 74.9 % (38.7-73.9); Platelet Count 245 T/CUMM (130-400); Red Blood Count 3.48 MC/CUMM (3.8-5.5); Red Cell Distribution Width 18.4 % (9.3-17.3); White Blood Count 14.2 T/CUMM (4-12)
[2019-10-26] MEDS: MORPHINE 4 MG/1 ML VIAL IV PRN ×2 (05:45→19:15)
[2019-10-26 05:52] LABS: Osmolality,Calculated 278.5 MOS/KG (273-304)
[2019-10-26] MEDS: ARFORMOTEROL 15 MCG/2 ML NEB RESP TX SCH ×2 (07:22→19:05)
[2019-10-26] MEDS: DOCUSATE SODIUM 100 MG/10 ML UDCUP NG SCH ×2 (08:51→20:07)
[2019-10-26] MEDS: BENZTROPINE 1 MG TABLET PO SCH ×2 (08:51→20:07)
[2019-10-26] MEDS: APIXABAN 5 MG TABLET PO SCH ×2 (08:51→20:10)
[2019-10-26] MEDS: PANTOPRAZOLE 40 MG VIAL IV SCH (08:51)
[2019-10-26] MEDS: SENNA 8.6 MG TABLET PO SCH ×2 (08:51→20:09)
[2019-10-26] MEDS: POTASSIUM CHLORIDE 20 MEQ/15 ML UDCUP PER TUBE PRN (08:52)
[2019-10-26] MEDS: MENTHOL/ZINC OXIDE OINT 71 GM JAR TOP SCH (08:52)
[2019-10-26] MEDS: NYSTATIN POWDER 15 GM BOTTLE TOP SCH ×3 (08:52→20:07)
[2019-10-26] MEDS: DEXAMETHASONE 10 MG/1 ML VIAL IV SCH (08:52)
[2019-10-26] MEDS: ARIPiprazole 10 MG TABLET PO SCH (08:53)
[2019-10-26] MEDS: buPROPion 75 MG TABLET PO SCH ×2 (08:53→20:06)
[2019-10-26] MEDS: ZINC OXIDE PASTE 113 GM TUBE TOP SCH ×2 (08:55→20:07)
[2019-10-26] MEDS: DESITIN 4OZ/NYSTATIN 15 GRAM MIXTURE PASTE TOP SCH ×2 (08:55→20:10)
[2019-10-26] MEDS: ACETAMINOPHEN 325 MG TABLET PO PRN (12:02)
[2019-10-26] MEDS: MICAFUNGIN 100 MG in SODIUM CHLORIDE 0.9% 100 ML IV SCH (13:59)
[2019-10-26] MEDS ORDERED: SODIUM CHLOR 0.45% KCL 20 MEQ 20 MEQ/1,000 ML BAG IV SCH (17:00)
[2019-10-26] MEDS: ONDANSETRON 4 MG/2 ML VIAL IV PRN (19:16)
[2019-10-26] MEDS: SKIN HEALING OINT (AQUAPHOR) 50 GM TUBE TOP PRN (20:07)
[2019-10-26] MEDS: DEXMEDETOMIDINE 400 MCG in SODIUM CHLORIDE 0.9% 96 ML IV PRN (21:12)
[2019-10-27] MEDS: AMPICILLIN/SULBACTAM 3,000 MG in SODIUM CHLORIDE 0.9% 100 ML IV SCH ×4 (04:31→21:37)
[2019-10-27] MEDS: INSULIN LISPRO 100 UNIT/ML SUBCUT SCH ×5 (04:32→23:55)
[2019-10-27 05:10] LABS: ABG Base Excess 3.4 MMOL/L (-2.5-2.5); ABG HCO3 27.4 MMOL/L (20-26); ABG Oxygen Saturation 96.8 % (95-100); ABG PCO2 42.5 MM HG (35-48); ABG PH 7.428 (7.35-7.45); ABG PO2 83.7 MM HG (80-95); ABG TCO2 25.9 MMOL/L (23-27); Allen Test Positive; Pt O2 Delivery Device Other
[2019-10-27 05:31] LABS: Calcium 8.5 MG/DL (8.5-10.1); Osmolality,Calculated 277.8 MOS/KG (273-304)
[2019-10-27 05:35] LABS: Basophils % 0.3 % (0.0-0.8); Eosinophils # 0.2 10*3/uL (0.0-0.87); Eosinophils % 1.7 % (0.00-10.9); Hematocrit 28.2 VOL% (35.7-47.0); Hemoglobin 8.5 GM/DL (12.0-16.0); Immature Granulocytes % 0.8 %; Lymphocytes # 1.2 10*3/uL (1.4-4.0); Lymphocytes % 9.3 % (21.3-54.2); Mean Corpuscular HGB Conc 30.1 GM/DL (32-36); Mean Corpuscular Volume 89.2 FL (87-102); Mean Platelet Volume 9.5 FL (9.6-12.0); Neutrophils % 83.9 % (38.7-73.9); Platelet Count 246 T/CUMM (130-400); Red Blood Count 3.16 MC/CUMM (3.8-5.5); Red Cell Distribution Width 18.3 % (9.3-17.3); White Blood Count 13.3 T/CUMM (4-12)
[2019-10-27] MEDS: ACETAMINOPHEN 325 MG TABLET PO PRN ×2 (05:47→23:53)
[2019-10-27] MEDS ORDERED: DOPamine 800 MG/250 ML PREMIX IV PRN (07:04)
[2019-10-27] MEDS ORDERED: FUROSEMIDE 40 MG/4 ML VIAL IV ONE (07:18)
[2019-10-27] MEDS: ARFORMOTEROL 15 MCG/2 ML NEB RESP TX SCH ×2 (07:34→19:11)
[2019-10-27] MEDS: DEXAMETHASONE 10 MG/1 ML VIAL IV SCH (08:25)
[2019-10-27] MEDS: PANTOPRAZOLE 40 MG VIAL IV SCH (08:25)
[2019-10-27] MEDS: MORPHINE 4 MG/1 ML VIAL IV PRN ×2 (08:25→23:55)
[2019-10-27] MEDS: ARIPiprazole 10 MG TABLET PO SCH (08:26)
[2019-10-27] MEDS: BENZTROPINE 1 MG TABLET PO SCH ×2 (08:26→20:00)
[2019-10-27] MEDS: DOCUSATE SODIUM 100 MG/10 ML UDCUP NG SCH ×2 (08:26→20:01)
[2019-10-27] MEDS: APIXABAN 5 MG TABLET PO SCH ×2 (08:26→20:00)
[2019-10-27] MEDS: buPROPion 75 MG TABLET PO SCH ×2 (08:26→20:00)
[2019-10-27] MEDS: ZINC OXIDE PASTE 113 GM TUBE TOP SCH ×2 (08:30→20:02)
[2019-10-27] MEDS: DESITIN 4OZ/NYSTATIN 15 GRAM MIXTURE PASTE TOP SCH ×2 (08:30→20:03)
[2019-10-27] MEDS: MENTHOL/ZINC OXIDE OINT 71 GM JAR TOP SCH (08:30)
[2019-10-27] MEDS: NYSTATIN POWDER 15 GM BOTTLE TOP SCH ×3 (08:30→20:02)
[2019-10-27] MEDS: SENNA 8.6 MG TABLET PO SCH ×2 (08:33→20:03)
[2019-10-27] MEDS: ALBUMIN 5% 12.5 GM in PREMIX 1 EACH IV SCH ×2 (09:05→16:06)
[2019-10-27] MEDS: MICAFUNGIN 100 MG in SODIUM CHLORIDE 0.9% 100 ML IV SCH (12:05)
[2019-10-27] MEDS: FUROSEMIDE 40 MG/4 ML VIAL IV SCH ×2 (20:00→20:52)
[2019-10-27] MEDS: SKIN HEALING OINT (AQUAPHOR) 50 GM TUBE TOP PRN (20:00)
[2019-10-27] MEDS: DEXMEDETOMIDINE 400 MCG in SODIUM CHLORIDE 0.9% 96 ML IV PRN (20:06)
[2019-10-27] MEDS: ONDANSETRON 4 MG/2 ML VIAL IV PRN (23:53)
[2019-10-28] MEDS: ALBUMIN 5% 12.5 GM in PREMIX 1 EACH IV SCH ×3 (02:38→17:50)
[2019-10-28 03:44] LABS: Basophils % 0.1 % (0.0-0.8); Eosinophils # 0.2 10*3/uL (0.0-0.87); Eosinophils % 1.7 % (0.00-10.9); Hematocrit 26.1 VOL% (35.7-47.0); Immature Granulocytes % 0.6 %; Immature Granulocytes Absolute 0.07 #; Lymphocytes # 1.1 10*3/uL (1.4-4.0); Lymphocytes % 9.9 % (21.3-54.2); Mean Corpuscular HGB Conc 30.7 GM/DL (32-36); Mean Corpuscular Volume 87.9 FL (87-102); Mean Platelet Volume 9.4 FL (9.6-12.0); Monocytes % 3.1 % (1.7-12.7); Neutrophils % 84.6 % (38.7-73.9); Platelet Count 215 T/CUMM (130-400); Red Blood Count 2.97 MC/CUMM (3.8-5.5); Red Cell Distribution Width 18.2 % (9.3-17.3); White Blood Count 11.3 T/CUMM (4-12)
[2019-10-28 03:57] LABS: Calcium 8.6 MG/DL (8.5-10.1); Osmolality,Calculated 279.5 MOS/KG (273-304)
[2019-10-28] MEDS: MORPHINE 4 MG/1 ML VIAL IV PRN (04:07)
[2019-10-28 04:57] LABS: ABG Base Excess 7.9 MMOL/L (-2.5-2.5); ABG HCO3 31.6 MMOL/L (20-26); ABG Oxygen Saturation 95.5 % (95-100); ABG PCO2 48.5 MM HG (35-48); ABG PH 7.444 (7.35-7.45); ABG PO2 76.5 MM HG (80-95); ABG TCO2 29.5 MMOL/L (23-27); Allen Test Positive; Pt O2 Delivery Device BIPAP
[2019-10-28] MEDS: POTASSIUM CHLORIDE 20 MEQ/15 ML UDCUP PER TUBE PRN ×3 (05:27→10:04)
[2019-10-28] MEDS: AMPICILLIN/SULBACTAM 3,000 MG in SODIUM CHLORIDE 0.9% 100 ML IV SCH ×4 (05:28→21:54)
[2019-10-28] MEDS: INSULIN LISPRO 100 UNIT/ML SUBCUT SCH ×3 (06:03→17:40)
[2019-10-28] MEDS: DEXMEDETOMIDINE 400 MCG in SODIUM CHLORIDE 0.9% 96 ML IV PRN (06:03)
[2019-10-28] MEDS: ARFORMOTEROL 15 MCG/2 ML NEB RESP TX SCH ×2 (07:00→19:32)
[2019-10-28] MEDS: PANTOPRAZOLE 40 MG VIAL IV SCH (08:56)
[2019-10-28] MEDS: DEXAMETHASONE 10 MG/1 ML VIAL IV SCH (08:58)
[2019-10-28] MEDS: FUROSEMIDE 40 MG/4 ML VIAL IV SCH ×2 (09:01→20:47)
[2019-10-28] MEDS ORDERED: ETOMIDATE 20 MG/10 ML VIAL IV ONE ×3 (09:10→09:29)
[2019-10-28] MEDS ORDERED: SUCCINYLCHOLINE 200 MG/10 ML VIAL ONE (09:11)
[2019-10-28] MEDS ORDERED: SUCCINYLCHOLINE 200 MG/10 ML VIAL IV ONE ×2 (09:14→09:28)
[2019-10-28] MEDS ORDERED: LACTATED RINGERS 1,000 ML IV ONE (09:22)
[2019-10-28] MEDS ORDERED: DIGOXIN 0.5 MG/2 ML AMP ONE (09:32)
[2019-10-28] MEDS ORDERED: NOREPINEPHRINE 4 MG/4 ML VIAL IV ONE (09:32)
[2019-10-28] MEDS ORDERED: DIGOXIN 0.5 MG/2 ML AMP IV ONE (09:45)
[2019-10-28] MEDS: ARIPiprazole 10 MG TABLET PO SCH (09:58)
[2019-10-28] MEDS: HALOPERIDOL 5 MG TABLET PO PRN (09:58)
[2019-10-28] MEDS: buPROPion 75 MG TABLET PO SCH ×2 (09:58→20:47)
[2019-10-28] MEDS: APIXABAN 5 MG TABLET PO SCH ×2 (09:58→20:47)
[2019-10-28] MEDS: BENZTROPINE 1 MG TABLET PO SCH ×2 (09:58→20:47)
[2019-10-28 09:59] LABS: ABG Base Excess -2.3 MMOL/L (-2.5-2.5); ABG HCO3 25.7 MMOL/L (20-26); ABG Oxygen Saturation 78.6 % (95-100); ABG PCO2 62.5 MM HG (35-48); ABG PH 7.232 (7.35-7.45); ABG PO2 53.7 MM HG (80-95); ABG TCO2 27.6 MMOL/L (23-27)
[2019-10-28 10:00] LABS: Pt O2 Delivery Device Ventilator
[2019-10-28] MEDS: NOREPINEPHRINE 8 MG in SODIUM CHLORIDE 0.9% 242 ML IV PRN (10:06)
[2019-10-28] MEDS: MENTHOL/ZINC OXIDE OINT 71 GM JAR TOP SCH (10:21)
[2019-10-28] MEDS: DOCUSATE SODIUM 100 MG/10 ML UDCUP NG SCH ×2 (10:23→20:46)
[2019-10-28] MEDS: ZINC OXIDE PASTE 113 GM TUBE TOP SCH ×2 (10:23→20:48)
[2019-10-28] MEDS: NYSTATIN POWDER 15 GM BOTTLE TOP SCH ×3 (10:24→21:54)
[2019-10-28] MEDS: SENNA 8.6 MG TABLET PO SCH ×2 (10:24→20:50)
[2019-10-28] MEDS: DESITIN 4OZ/NYSTATIN 15 GRAM MIXTURE PASTE TOP SCH ×2 (10:25→20:49)
[2019-10-28] MEDS ORDERED: POTASSIUM PHOSPHATE 15 MMOL in SODIUM CHLORIDE 0.9% 100 ML IV ONE (12:00)
[2019-10-28] MEDS: LACTATED RINGERS 1,000 ML IV SCH ×2 (12:55→19:23)
[2019-10-28] MEDS: ROCURONIUM 500 MG in SODIUM CHLORIDE 0.9% 500 ML IV PRN ×2 (12:56→22:46)
[2019-10-28] MEDS: MIDAZOLAM 100 MG in SODIUM CHLORIDE 0.9% 80 ML IV PRN (12:56)
[2019-10-28] MEDS: MICAFUNGIN 100 MG in SODIUM CHLORIDE 0.9% 100 ML IV SCH (12:58)
[2019-10-28] MEDS: POLYVINYL ALCOHOL 1.4% OPH SOLN 15 ML BOTTLE BOTH EYES PRN (20:48)
[2019-10-29] MEDS: ALBUMIN 5% 12.5 GM in PREMIX 1 EACH IV SCH ×2 (00:40→09:14)
[2019-10-29] MEDS: INSULIN LISPRO 100 UNIT/ML SUBCUT SCH ×5 (00:41→23:55)
[2019-10-29] MEDS: MIDAZOLAM 100 MG in SODIUM CHLORIDE 0.9% 80 ML IV PRN ×2 (00:45→22:42)
[2019-10-29 03:16] LABS: ABG Base Excess 6.5 MMOL/L (-2.5-2.5); ABG HCO3 30.3 MMOL/L (20-26); ABG PCO2 38.4 MM HG (35-48); ABG PH 7.502 (7.35-7.45); ABG TCO2 28.3 MMOL/L (23-27)
[2019-10-29] MEDS: LACTATED RINGERS 1,000 ML IV SCH (04:57)
[2019-10-29] MEDS: AMPICILLIN/SULBACTAM 3,000 MG in SODIUM CHLORIDE 0.9% 100 ML IV SCH ×3 (04:57→20:47)
[2019-10-29 05:07] LABS: Eosinophils % 0.1 % (0.00-10.9); Hematocrit 22.1 VOL% (35.7-47.0); Hemoglobin 6.9 GM/DL (12.0-16.0); Immature Granulocytes % 0.6 %; Immature Granulocytes Absolute 0.06 #; Lymphocytes # 1.1 10*3/uL (1.4-4.0); Lymphocytes % 11.2 % (21.3-54.2); Mean Corpuscular HGB Conc 31.2 GM/DL (32-36); Mean Platelet Volume 9.2 FL (9.6-12.0); Monocytes % 3.8 % (1.7-12.7); Neutrophils % 84.3 % (38.7-73.9); Platelet Count 176 T/CUMM (130-400); Red Blood Count 2.51 MC/CUMM (3.8-5.5); Red Cell Distribution Width 18.1 % (9.3-17.3); White Blood Count 9.4 T/CUMM (4-12)
[2019-10-29 05:25] LABS: Osmolality,Calculated 280.4 MOS/KG (273-304)
[2019-10-29] MEDS: POTASSIUM CHLORIDE 20 MEQ/15 ML UDCUP PER TUBE PRN (06:34)
[2019-10-29] MEDS: ARFORMOTEROL 15 MCG/2 ML NEB RESP TX SCH ×2 (07:51→19:33)
[2019-10-29] MEDS ORDERED: MAGNESIUM SULF RIDER 2 GM in PREMIX 1 EACH IV ONE (08:34)
[2019-10-29] MEDS: ARIPiprazole 10 MG TABLET PO SCH (09:00)
[2019-10-29] MEDS: BENZTROPINE 1 MG TABLET PO SCH ×2 (09:00→20:47)
[2019-10-29] MEDS: buPROPion 75 MG TABLET PO SCH ×2 (09:00→20:47)
[2019-10-29] MEDS: APIXABAN 5 MG TABLET PO SCH ×2 (09:00→20:47)
[2019-10-29] MEDS: PANTOPRAZOLE 40 MG VIAL IV SCH (09:01)
[2019-10-29] MEDS: FUROSEMIDE 40 MG/4 ML VIAL IV SCH ×2 (09:02→20:46)
[2019-10-29] MEDS: DEXAMETHASONE 10 MG/1 ML VIAL IV SCH (09:02)
[2019-10-29] MEDS: DESITIN 4OZ/NYSTATIN 15 GRAM MIXTURE PASTE TOP SCH ×2 (09:08→20:46)
[2019-10-29] MEDS: ZINC OXIDE PASTE 113 GM TUBE TOP SCH ×2 (09:08→20:50)
[2019-10-29] MEDS: MENTHOL/ZINC OXIDE OINT 71 GM JAR TOP SCH (09:09)
[2019-10-29] MEDS: SENNA 8.6 MG TABLET PO SCH (09:14)
[2019-10-29] MEDS: DOCUSATE SODIUM 100 MG/10 ML UDCUP NG SCH ×2 (09:14→20:47)
[2019-10-29] MEDS: NYSTATIN POWDER 15 GM BOTTLE TOP SCH ×3 (09:15→20:50)
[2019-10-29] MEDS ORDERED: POTASSIUM PHOSPHATE 30 MMOL in SODIUM CHLORIDE 0.9% 250 ML IV ONE (10:00)
[2019-10-29 11:00] LABS: Bilirubin,Urine Negative (Negative); Blood, Urine Negative (Negative); Glucose,Urine (UA) Negative (Negative); Ketones,Urine Negative (Negative); Mucus,Urine Occasional /LPF (Occasional); Nitrite,Urine Negative (Negative); Protein,Urine Negative; RBC,Urine <1 /HPF (0-4); Urine Appearance CLEAR (Clear); Urine Color Straw (Yellow); Urine Specific Gravity 1.005 (1.001-1.035); Urine Urobilinogen < 2.0 EU/DL (0.2-1.0); WBC,Urine 1 /HPF (0-6)
[2019-10-29] MEDS ORDERED: SODIUM CHLORIDE 0.9% 1,000 ML IV PRN (11:46)
[2019-10-29] MEDS: ROCURONIUM 500 MG in SODIUM CHLORIDE 0.9% 500 ML IV PRN (12:59)
[2019-10-29] MEDS: MICAFUNGIN 100 MG in SODIUM CHLORIDE 0.9% 100 ML IV SCH (20:46)
[2019-10-29] MEDS: POLYVINYL ALCOHOL 1.4% OPH SOLN 15 ML BOTTLE BOTH EYES PRN (20:50)
[2019-10-29 22:56] LABS: Hematocrit 30.5 VOL% (35.7-47.0); Hemoglobin 9.5 GM/DL (12.0-16.0)
[2019-10-30] MEDS: ROCURONIUM 500 MG in SODIUM CHLORIDE 0.9% 500 ML IV PRN ×2 (03:31→20:02)
[2019-10-30] MEDS: AMPICILLIN/SULBACTAM 3,000 MG in SODIUM CHLORIDE 0.9% 100 ML IV SCH ×4 (04:35→20:45)
[2019-10-30 05:02] LABS: ABG Base Excess 8.5 MMOL/L (-2.5-2.5); ABG HCO3 32.2 MMOL/L (20-26); ABG Oxygen Saturation 93.7 % (95-100); ABG PCO2 48.6 MM HG (35-48); ABG PO2 68.8 MM HG (80-95); ABG TCO2 30.8 MMOL/L (23-27); Allen Test Positive; Pt O2 Delivery Device Ventilator
[2019-10-30] MEDS: INSULIN LISPRO 100 UNIT/ML SUBCUT SCH ×3 (05:47→18:04)
[2019-10-30] MEDS: ARFORMOTEROL 15 MCG/2 ML NEB RESP TX SCH ×2 (07:49→19:45)
[2019-10-30] MEDS: ARIPiprazole 10 MG TABLET PO SCH (08:37)
[2019-10-30] MEDS: DOCUSATE SODIUM 100 MG/10 ML UDCUP NG SCH ×2 (08:37→20:42)
[2019-10-30] MEDS: APIXABAN 5 MG TABLET PO SCH ×2 (08:37→20:42)
[2019-10-30] MEDS: BENZTROPINE 1 MG TABLET PO SCH ×2 (08:37→20:42)
[2019-10-30] MEDS: FUROSEMIDE 40 MG/4 ML VIAL IV SCH ×2 (08:38→20:43)
[2019-10-30] MEDS: DEXAMETHASONE 10 MG/1 ML VIAL IV SCH (08:38)
[2019-10-30] MEDS: buPROPion 75 MG TABLET PO SCH ×2 (08:38→20:42)
[2019-10-30] MEDS: DESITIN 4OZ/NYSTATIN 15 GRAM MIXTURE PASTE TOP SCH ×2 (08:39→20:47)
[2019-10-30] MEDS: NYSTATIN POWDER 15 GM BOTTLE TOP SCH ×3 (08:39→20:43)
[2019-10-30] MEDS: MENTHOL/ZINC OXIDE OINT 71 GM JAR TOP SCH (08:39)
[2019-10-30] MEDS: ZINC OXIDE PASTE 113 GM TUBE TOP SCH ×2 (08:39→20:43)
[2019-10-30] MEDS: PANTOPRAZOLE 40 MG VIAL IV SCH (08:40)
[2019-10-30 09:55] LABS: Basophils % 0.2 % (0.0-0.8); Eosinophils # 0.1 10*3/uL (0.0-0.87); Eosinophils % 1.1 % (0.00-10.9); Hematocrit 32.3 VOL% (35.7-47.0); Hemoglobin 10.1 GM/DL (12.0-16.0); Immature Granulocytes % 1.6 %; Immature Granulocytes Absolute 0.17 #; Lymphocytes # 2.1 10*3/uL (1.4-4.0); Lymphocytes % 20.1 % (21.3-54.2); Mean Corpuscular HGB Conc 31.3 GM/DL (32-36); Mean Corpuscular Volume 87.5 FL (87-102); Mean Platelet Volume 9.6 FL (9.6-12.0); Monocytes % 5.4 % (1.7-12.7); NRBC # 0.09 10*3/uL; Neutrophils % 71.6 % (38.7-73.9); Platelet Count 251 T/CUMM (130-400); Red Blood Count 3.69 MC/CUMM (3.8-5.5); Red Cell Distribution Width 17.6 % (9.3-17.3); White Blood Count 10.6 T/CUMM (4-12)
[2019-10-30 10:10] LABS: Osmolality,Calculated 281.8 MOS/KG (273-304)
[2019-10-30] MEDS: MIDAZOLAM 100 MG in SODIUM CHLORIDE 0.9% 80 ML IV PRN (18:47)
[2019-10-30] MEDS: MICAFUNGIN 100 MG in SODIUM CHLORIDE 0.9% 100 ML IV SCH (20:03)
[2019-10-30] MEDS: LACTULOSE 20 GM/30 ML UDCUP PO PRN (20:42)
[2019-10-30] MEDS: SKIN HEALING OINT (AQUAPHOR) 50 GM TUBE TOP PRN (20:43)
[2019-10-30] MEDS: POLYVINYL ALCOHOL 1.4% OPH SOLN 15 ML BOTTLE BOTH EYES PRN (20:44)
[2019-10-31] MEDS: INSULIN LISPRO 100 UNIT/ML SUBCUT SCH ×4 (00:06→18:51)
[2019-10-31] MEDS: AMPICILLIN/SULBACTAM 3,000 MG in SODIUM CHLORIDE 0.9% 100 ML IV SCH ×4 (03:58→20:15)
[2019-10-31 04:40] LABS: ABG Base Excess 9.6 MMOL/L (-2.5-2.5); ABG HCO3 33.9 MMOL/L (20-26); ABG Oxygen Saturation 98.1 % (95-100); ABG PCO2 45.2 MM HG (35-48); ABG PH 7.493 (7.35-7.45); ABG PO2 114.7 MM HG (80-95); ABG TCO2 35.3 MMOL/L (23-27); Allen Test Positive; Pt O2 Delivery Device Ventilator
[2019-10-31 04:52] LABS: Basophils % 0.1 % (0.0-0.8); Eosinophils % 0.3 % (0.00-10.9); Hematocrit 30.1 VOL% (35.7-47.0); Hemoglobin 9.4 GM/DL (12.0-16.0); Immature Granulocytes % 2.1 %; Immature Granulocytes Absolute 0.25 #; Lymphocytes # 1.9 10*3/uL (1.4-4.0); Lymphocytes % 15.9 % (21.3-54.2); Mean Corpuscular HGB Conc 31.2 GM/DL (32-36); Mean Corpuscular Volume 87.2 FL (87-102); Mean Platelet Volume 9.2 FL (9.6-12.0); Monocytes % 5.4 % (1.7-12.7); NRBC # 0.14 10*3/uL; Neutrophils % 76.2 % (38.7-73.9); Platelet Count 232 T/CUMM (130-400); Red Blood Count 3.45 MC/CUMM (3.8-5.5); Red Cell Distribution Width 17.3 % (9.3-17.3)
[2019-10-31 05:07] LABS: Osmolality,Calculated 283.7 MOS/KG (273-304)
[2019-10-31] MEDS: POTASSIUM CHLORIDE 20 MEQ/15 ML UDCUP PER TUBE PRN (06:31)
[2019-10-31] MEDS: PANTOPRAZOLE 40 MG VIAL IV SCH (08:14)
[2019-10-31] MEDS: DEXAMETHASONE 10 MG/1 ML VIAL IV SCH (08:14)
[2019-10-31] MEDS: FUROSEMIDE 40 MG/4 ML VIAL IV SCH ×2 (08:14→20:15)
[2019-10-31] MEDS: MENTHOL/ZINC OXIDE OINT 71 GM JAR TOP SCH (08:15)
[2019-10-31] MEDS: NYSTATIN POWDER 15 GM BOTTLE TOP SCH ×3 (08:15→20:25)
[2019-10-31] MEDS: DESITIN 4OZ/NYSTATIN 15 GRAM MIXTURE PASTE TOP SCH ×2 (08:15→20:25)
[2019-10-31] MEDS: ZINC OXIDE PASTE 113 GM TUBE TOP SCH ×2 (08:15→20:25)
[2019-10-31] MEDS: ARIPiprazole 10 MG TABLET PO SCH (08:16)
[2019-10-31] MEDS: DOCUSATE SODIUM 100 MG/10 ML UDCUP NG SCH ×2 (08:16→20:14)
[2019-10-31] MEDS: APIXABAN 5 MG TABLET PO SCH ×2 (08:17→20:15)
[2019-10-31] MEDS: BENZTROPINE 1 MG TABLET PO SCH ×2 (08:17→20:15)
[2019-10-31] MEDS: buPROPion 75 MG TABLET PO SCH ×2 (08:17→20:14)
[2019-10-31] MEDS: ARFORMOTEROL 15 MCG/2 ML NEB RESP TX SCH ×2 (08:21→19:28)
[2019-10-31] MEDS ORDERED: POTASSIUM PHOSPHATE 30 MMOL in SODIUM CHLORIDE 0.9% 250 ML IV ONE (10:00)
[2019-10-31] MEDS: MIDAZOLAM 100 MG in SODIUM CHLORIDE 0.9% 80 ML IV PRN (13:50)
[2019-10-31] MEDS: ROCURONIUM 500 MG in SODIUM CHLORIDE 0.9% 500 ML IV PRN (15:05)
[2019-10-31] MEDS: MICAFUNGIN 100 MG in SODIUM CHLORIDE 0.9% 100 ML IV SCH (20:41)
[2019-11-01] MEDS: INSULIN LISPRO 100 UNIT/ML SUBCUT SCH ×4 (00:55→18:26)
[2019-11-01 04:23] LABS: Basophils % 0.2 % (0.0-0.8); Eosinophils # 0.2 10*3/uL (0.0-0.87); Eosinophils % 1.2 % (0.00-10.9); Hematocrit 31.7 VOL% (35.7-47.0); Immature Granulocytes % 2.4 %; Immature Granulocytes Absolute 0.31 #; Lymphocytes # 2.7 10*3/uL (1.4-4.0); Lymphocytes % 20.7 % (21.3-54.2); Mean Corpuscular HGB Conc 31.5 GM/DL (32-36); Mean Corpuscular Volume 87.3 FL (87-102); Mean Platelet Volume 9.5 FL (9.6-12.0); Monocytes % 5.3 % (1.7-12.7); NRBC # 0.15 10*3/uL; Neutrophils % 70.2 % (38.7-73.9); Platelet Count 259 T/CUMM (130-400); Red Blood Count 3.63 MC/CUMM (3.8-5.5); Red Cell Distribution Width 17.2 % (9.3-17.3)
[2019-11-01 04:23] LABS: Allen Test Positive; Pt O2 Delivery Device Ventilator
[2019-11-01 04:25] LABS: ABG Base Excess 10.7 MMOL/L (-2.5-2.5); ABG HCO3 34.4 MMOL/L (20-26); ABG Oxygen Saturation 98.1 % (95-100); ABG PCO2 39.6 MM HG (35-48); ABG PH 7.544 (7.35-7.45); ABG PO2 92.1 MM HG (80-95); ABG TCO2 30.8 MMOL/L (23-27)
[2019-11-01 04:51] LABS: Calcium 9.2 MG/DL (8.5-10.1); Osmolality,Calculated 275.1 MOS/KG (273-304)
[2019-11-01] MEDS: MIDAZOLAM 100 MG in SODIUM CHLORIDE 0.9% 80 ML IV PRN ×2 (05:18→21:27)
[2019-11-01] MEDS: AMPICILLIN/SULBACTAM 3,000 MG in SODIUM CHLORIDE 0.9% 100 ML IV SCH ×4 (05:54→22:41)
[2019-11-01] MEDS ORDERED: ceFAZolin 1,000 MG in SYRINGE 1 EACH IV ONE (06:59)
[2019-11-01] MEDS ORDERED: MIDAZOLAM 2 MG/2 ML VIAL ONE (09:32)
[2019-11-01] MEDS ORDERED: SEVOFLURANE 1 UNIT/15 MINUTE INH ONE (09:32)
[2019-11-01] MEDS ORDERED: ROCURONIUM 100 MG/10 ML VIAL IV ONE (09:33)
[2019-11-01] MEDS: FUROSEMIDE 40 MG/4 ML VIAL IV SCH ×2 (10:23→20:57)
[2019-11-01] MEDS: DOCUSATE SODIUM 100 MG/10 ML UDCUP NG SCH ×2 (10:24→20:57)
[2019-11-01] MEDS: APIXABAN 5 MG TABLET PO SCH ×2 (10:24→20:56)
[2019-11-01] MEDS: BENZTROPINE 1 MG TABLET PO SCH ×2 (10:24→20:56)
[2019-11-01] MEDS: buPROPion 75 MG TABLET PO SCH ×2 (10:24→20:56)
[2019-11-01] MEDS: ARIPiprazole 10 MG TABLET PO SCH (10:24)
[2019-11-01] MEDS: PANTOPRAZOLE 40 MG VIAL IV SCH (10:25)
[2019-11-01] MEDS: ARFORMOTEROL 15 MCG/2 ML NEB RESP TX SCH ×2 (10:29→19:28)
[2019-11-01] MEDS: ZINC OXIDE PASTE 113 GM TUBE TOP SCH ×2 (10:32→20:58)
[2019-11-01] MEDS: MENTHOL/ZINC OXIDE OINT 71 GM JAR TOP SCH (10:33)
[2019-11-01] MEDS: DESITIN 4OZ/NYSTATIN 15 GRAM MIXTURE PASTE TOP SCH ×2 (10:33→20:59)
[2019-11-01] MEDS: NYSTATIN POWDER 15 GM BOTTLE TOP SCH ×3 (10:33→20:57)
[2019-11-01] MEDS: ROCURONIUM 500 MG in SODIUM CHLORIDE 0.9% 500 ML IV PRN (11:36)
[2019-11-01] MEDS: NOREPINEPHRINE 8 MG in SODIUM CHLORIDE 0.9% 242 ML IV PRN (13:42)
[2019-11-01] MEDS: MICAFUNGIN 100 MG in SODIUM CHLORIDE 0.9% 100 ML IV SCH (20:56)
[2019-11-02] MEDS: INSULIN LISPRO 100 UNIT/ML SUBCUT SCH ×4 (00:10→18:26)
[2019-11-02 03:40] LABS: ABG Base Excess 7.9 MMOL/L (-2.5-2.5); ABG HCO3 31.6 MMOL/L (20-26); ABG Oxygen Saturation 92.4 % (95-100); ABG PCO2 40.8 MM HG (35-48); ABG PH 7.507 (7.35-7.45); ABG PO2 64.2 MM HG (80-95); ABG TCO2 32.9 MMOL/L (23-27)
[2019-11-02 04:22] LABS: Basophils % 0.3 % (0.0-0.8); Eosinophils # 0.2 10*3/uL (0.0-0.87); Eosinophils % 1.4 % (0.00-10.9); Hematocrit 36.5 VOL% (35.7-47.0); Hemoglobin 11.4 GM/DL (12.0-16.0); Immature Granulocytes % 3.1 %; Immature Granulocytes Absolute 0.39 #; Lymphocytes # 1.7 10*3/uL (1.4-4.0); Lymphocytes % 13.9 % (21.3-54.2); Mean Corpuscular HGB Conc 31.2 GM/DL (32-36); Mean Corpuscular Volume 88.6 FL (87-102); Mean Platelet Volume 9.5 FL (9.6-12.0); Monocytes % 3.5 % (1.7-12.7); NRBC # 0.04 10*3/uL; Neutrophils % 77.8 % (38.7-73.9); Platelet Count 270 T/CUMM (130-400); Red Blood Count 4.12 MC/CUMM (3.8-5.5); Red Cell Distribution Width 18.1 % (9.3-17.3); White Blood Count 12.6 T/CUMM (4-12)
[2019-11-02 04:36] LABS: Calcium 9.4 MG/DL (8.5-10.1); Osmolality,Calculated 274.2 MOS/KG (273-304)
[2019-11-02] MEDS: POTASSIUM CHLORIDE 20 MEQ/15 ML UDCUP PER TUBE PRN (05:09)
[2019-11-02] MEDS: AMPICILLIN/SULBACTAM 3,000 MG in SODIUM CHLORIDE 0.9% 100 ML IV SCH ×4 (05:09→22:05)
[2019-11-02] MEDS: ROCURONIUM 500 MG in SODIUM CHLORIDE 0.9% 500 ML IV PRN (07:00)
[2019-11-02] MEDS: ARFORMOTEROL 15 MCG/2 ML NEB RESP TX SCH ×2 (07:08→19:44)
[2019-11-02] MEDS: ARIPiprazole 10 MG TABLET PO SCH (09:35)
[2019-11-02] MEDS: buPROPion 75 MG TABLET PO SCH ×2 (09:36→20:40)
[2019-11-02] MEDS: DOCUSATE SODIUM 100 MG/10 ML UDCUP NG SCH ×2 (09:36→20:45)
[2019-11-02] MEDS: APIXABAN 5 MG TABLET PO SCH ×2 (09:36→20:40)
[2019-11-02] MEDS: BENZTROPINE 1 MG TABLET PO SCH ×2 (09:36→20:42)
[2019-11-02] MEDS: PANTOPRAZOLE 40 MG VIAL IV SCH (09:37)
[2019-11-02] MEDS: DESITIN 4OZ/NYSTATIN 15 GRAM MIXTURE PASTE TOP SCH ×2 (09:37→20:38)
[2019-11-02] MEDS: ZINC OXIDE PASTE 113 GM TUBE TOP SCH ×2 (09:37→20:38)
[2019-11-02] MEDS: NYSTATIN POWDER 15 GM BOTTLE TOP SCH ×3 (09:37→20:38)
[2019-11-02] MEDS: MENTHOL/ZINC OXIDE OINT 71 GM JAR TOP SCH (09:37)
[2019-11-02] MEDS: FUROSEMIDE 40 MG/4 ML VIAL IV SCH ×2 (09:39→20:40)
[2019-11-02] MEDS: MIDAZOLAM 100 MG in SODIUM CHLORIDE 0.9% 80 ML IV PRN (11:19)
[2019-11-02] MEDS: MORPHINE 4 MG/1 ML VIAL IV PRN (19:12)
[2019-11-02] MEDS: MICAFUNGIN 100 MG in SODIUM CHLORIDE 0.9% 100 ML IV SCH (20:37)
[2019-11-02] MEDS: POLYVINYL ALCOHOL 1.4% OPH SOLN 15 ML BOTTLE BOTH EYES PRN (20:38)
[2019-11-02] MEDS: QUEtiapine 25 MG TABLET PO SCH (20:41)
[2019-11-02] MEDS: ACETAMINOPHEN 325 MG TABLET PO PRN (20:42)
[2019-11-03] MEDS: INSULIN LISPRO 100 UNIT/ML SUBCUT SCH ×4 (00:27→18:16)
[2019-11-03] MEDS: MORPHINE 4 MG/1 ML VIAL IV PRN ×2 (01:28→08:42)
[2019-11-03 03:36] LABS: Allen Test Positive; Pt O2 Delivery Device Ventilator
[2019-11-03 03:37] LABS: ABG Base Excess 10.5 MMOL/L (-2.5-2.5); ABG HCO3 34.2 MMOL/L (20-26); ABG PCO2 47.3 MM HG (35-48); ABG PH 7.483 (7.35-7.45); ABG PO2 78.8 MM HG (80-95); ABG TCO2 31.7 MMOL/L (23-27)
[2019-11-03 04:15] LABS: Basophils % 0.3 % (0.0-0.8); Eosinophils # 0.3 10*3/uL (0.0-0.87); Eosinophils % 2.5 % (0.00-10.9); Hematocrit 34.5 VOL% (35.7-47.0); Hemoglobin 10.6 GM/DL (12.0-16.0); Immature Granulocytes Absolute 0.24 #; Lymphocytes # 2.1 10*3/uL (1.4-4.0); Lymphocytes % 17.6 % (21.3-54.2); Mean Corpuscular HGB Conc 30.7 GM/DL (32-36); Mean Corpuscular Volume 88.2 FL (87-102); Mean Platelet Volume 9.4 FL (9.6-12.0); Monocytes % 3.9 % (1.7-12.7); Neutrophils % 73.7 % (38.7-73.9); Platelet Count 276 T/CUMM (130-400); Red Blood Count 3.91 MC/CUMM (3.8-5.5); Red Cell Distribution Width 17.7 % (9.3-17.3); White Blood Count 11.8 T/CUMM (4-12)
[2019-11-03 04:29] LABS: Calcium 9.2 MG/DL (8.5-10.1); Osmolality,Calculated 285.5 MOS/KG (273-304)
[2019-11-03] MEDS: AMPICILLIN/SULBACTAM 3,000 MG in SODIUM CHLORIDE 0.9% 100 ML IV SCH ×4 (05:45→18:43)
[2019-11-03] MEDS: HALOPERIDOL 5 MG TABLET PO PRN (06:43)
[2019-11-03] MEDS: ARFORMOTEROL 15 MCG/2 ML NEB RESP TX SCH ×2 (07:55→19:50)
[2019-11-03] MEDS: buPROPion 75 MG TABLET PO SCH ×2 (08:43→22:20)
[2019-11-03] MEDS: PANTOPRAZOLE 40 MG VIAL IV SCH (08:43)
[2019-11-03] MEDS: FUROSEMIDE 40 MG/4 ML VIAL IV SCH (08:43)
[2019-11-03] MEDS: APIXABAN 5 MG TABLET PO SCH ×2 (08:43→22:20)
[2019-11-03] MEDS: DOCUSATE SODIUM 100 MG/10 ML UDCUP NG SCH ×2 (08:44→22:20)
[2019-11-03] MEDS: ARIPiprazole 10 MG TABLET PO SCH (08:44)
[2019-11-03] MEDS: POTASSIUM CHLORIDE 20 MEQ/15 ML UDCUP PER TUBE PRN ×4 (08:44→13:58)
[2019-11-03] MEDS: MENTHOL/ZINC OXIDE OINT 71 GM JAR TOP SCH (08:45)
[2019-11-03] MEDS: ZINC OXIDE PASTE 113 GM TUBE TOP SCH ×2 (08:45→22:22)
[2019-11-03] MEDS: NYSTATIN POWDER 15 GM BOTTLE TOP SCH ×3 (08:45→22:22)
[2019-11-03] MEDS: DESITIN 4OZ/NYSTATIN 15 GRAM MIXTURE PASTE TOP SCH ×2 (08:45→22:21)
[2019-11-03] MEDS: BENZTROPINE 1 MG TABLET PO SCH ×2 (08:49→22:20)
[2019-11-03] MEDS ORDERED: LORazepam 2 MG/1 ML VIAL IV ONE (09:01)
[2019-11-03] MEDS ORDERED: MIDAZOLAM 10 MG/2 ML VIAL IV ONE (09:24)
[2019-11-03] MEDS ORDERED: MIDAZOLAM 10 MG/2 ML VIAL ONE (09:27)
[2019-11-03] MEDS: DEXMEDETOMIDINE 400 MCG in SODIUM CHLORIDE 0.9% 96 ML IV PRN (11:49)
[2019-11-03] MEDS: SCOPOLAMINE 1.5 MG PATCH TRANSDERM SCH (12:52)
[2019-11-03] MEDS: QUEtiapine 25 MG TABLET PO SCH (22:20)
[2019-11-03] MEDS: MICAFUNGIN 100 MG in SODIUM CHLORIDE 0.9% 100 ML IV SCH (22:20)
[2019-11-04] MEDS: INSULIN LISPRO 100 UNIT/ML SUBCUT SCH ×4 (01:10→18:00)
[2019-11-04] MEDS: AMPICILLIN/SULBACTAM 3,000 MG in SODIUM CHLORIDE 0.9% 100 ML IV SCH ×4 (01:10→18:00)
[2019-11-04 03:21] LABS: ABG Base Excess 7.3 MMOL/L (-2.5-2.5); ABG HCO3 31.5 MMOL/L (20-26); ABG PCO2 42.8 MM HG (35-48); ABG PH 7.485 (7.35-7.45); ABG PO2 81.4 MM HG (80-95); ABG TCO2 32.8 MMOL/L (23-27); Allen Test Positive; Pt O2 Delivery Device Ventilator
[2019-11-04 04:32] LABS: Basophils % 0.3 % (0.0-0.8); Eosinophils # 0.3 10*3/uL (0.0-0.87); Eosinophils % 2.8 % (0.00-10.9); Hematocrit 32.4 VOL% (35.7-47.0); Immature Granulocytes % 2.1 %; Immature Granulocytes Absolute 0.22 #; Lymphocytes # 1.9 10*3/uL (1.4-4.0); Lymphocytes % 18.3 % (21.3-54.2); Mean Corpuscular HGB Conc 30.9 GM/DL (32-36); Mean Platelet Volume 9.7 FL (9.6-12.0); Monocytes % 4.6 % (1.7-12.7); Neutrophils % 71.9 % (38.7-73.9); Platelet Count 275 T/CUMM (130-400); Red Blood Count 3.52 MC/CUMM (3.8-5.5); Red Cell Distribution Width 18.1 % (9.3-17.3); White Blood Count 10.4 T/CUMM (4-12)
[2019-11-04 04:37] LABS: Calcium 9.3 MG/DL (8.5-10.1); Osmolality,Calculated 285.5 MOS/KG (273-304)
[2019-11-04] MEDS: POTASSIUM CHLORIDE 20 MEQ/15 ML UDCUP PER TUBE PRN (06:20)
[2019-11-04] MEDS: ARFORMOTEROL 15 MCG/2 ML NEB RESP TX SCH ×2 (07:13→19:28)
[2019-11-04] MEDS: PANTOPRAZOLE 40 MG VIAL IV SCH (08:00)
[2019-11-04] MEDS: DOCUSATE SODIUM 100 MG/10 ML UDCUP NG SCH ×2 (08:02→20:56)
[2019-11-04] MEDS: ARIPiprazole 10 MG TABLET PO SCH (08:03)
[2019-11-04] MEDS: buPROPion 75 MG TABLET PO SCH ×2 (08:03→20:56)
[2019-11-04] MEDS: APIXABAN 5 MG TABLET PO SCH (08:03)
[2019-11-04] MEDS: BENZTROPINE 1 MG TABLET PO SCH ×2 (08:03→20:57)
[2019-11-04] MEDS: DESITIN 4OZ/NYSTATIN 15 GRAM MIXTURE PASTE TOP SCH ×2 (08:04→21:08)
[2019-11-04] MEDS: ZINC OXIDE PASTE 113 GM TUBE TOP SCH ×2 (08:04→21:07)
[2019-11-04] MEDS: MENTHOL/ZINC OXIDE OINT 71 GM JAR TOP SCH (08:04)
[2019-11-04] MEDS: NYSTATIN POWDER 15 GM BOTTLE TOP SCH ×3 (08:04→20:57)
[2019-11-04] MEDS: MORPHINE 4 MG/1 ML VIAL IV PRN (08:14)
[2019-11-04] MEDS: DEXMEDETOMIDINE 400 MCG in SODIUM CHLORIDE 0.9% 96 ML IV PRN ×3 (08:16→23:25)
[2019-11-04] MEDS ORDERED: LORazepam 2 MG/1 ML VIAL IV ONE (08:45)
[2019-11-04] MEDS ORDERED: HALOPERIDOL 5 MG/ML AMP IM PRN (08:49)
[2019-11-04] MEDS ORDERED: FUROSEMIDE 40 MG/4 ML VIAL IV SCH (09:00)
[2019-11-04] MEDS: QUEtiapine 25 MG TABLET PO SCH ×2 (09:11→21:00)
[2019-11-04] MEDS: NOREPINEPHRINE 8 MG in SODIUM CHLORIDE 0.9% 242 ML IV PRN (11:11)
[2019-11-04] MEDS: MICAFUNGIN 100 MG in SODIUM CHLORIDE 0.9% 100 ML IV SCH (20:56)
[2019-11-05] MEDS: MORPHINE 4 MG/1 ML VIAL IV PRN ×3 (00:18→18:22)
[2019-11-05] MEDS: INSULIN LISPRO 100 UNIT/ML SUBCUT SCH ×4 (00:19→18:53)
[2019-11-05] MEDS: AMPICILLIN/SULBACTAM 3,000 MG in SODIUM CHLORIDE 0.9% 100 ML IV SCH ×4 (00:23→18:22)
[2019-11-05 04:02] LABS: Calcium 9.4 MG/DL (8.5-10.1); Osmolality,Calculated 288.4 MOS/KG (273-304)
[2019-11-05 04:05] LABS: Basophils % 0.4 % (0.0-0.8); Eosinophils # 0.3 10*3/uL (0.0-0.87); Eosinophils % 3.7 % (0.00-10.9); Hematocrit 30.6 VOL% (35.7-47.0); Hemoglobin 9.3 GM/DL (12.0-16.0); Immature Granulocytes % 1.3 %; Immature Granulocytes Absolute 0.11 #; Lymphocytes # 1.7 10*3/uL (1.4-4.0); Lymphocytes % 20.3 % (21.3-54.2); Mean Corpuscular HGB Conc 30.4 GM/DL (32-36); Mean Corpuscular Volume 92.4 FL (87-102); Mean Platelet Volume 9.7 FL (9.6-12.0); Monocytes % 4.5 % (1.7-12.7); Neutrophils % 69.8 % (38.7-73.9); Platelet Count 267 T/CUMM (130-400); Red Blood Count 3.31 MC/CUMM (3.8-5.5); Red Cell Distribution Width 17.4 % (9.3-17.3); White Blood Count 8.4 T/CUMM (4-12)
[2019-11-05 04:30] LABS: ABG Base Excess 6.4 MMOL/L (-2.5-2.5); ABG HCO3 30.7 MMOL/L (20-26); ABG Oxygen Saturation 98.4 % (95-100); ABG PCO2 43.4 MM HG (35-48); ABG PH 7.468 (7.35-7.45); ABG PO2 123.2 MM HG (80-95); ABG TCO2 32.1 MMOL/L (23-27); Allen Test Positive; Pt O2 Delivery Device Ventilator
[2019-11-05] MEDS: DEXMEDETOMIDINE 400 MCG in SODIUM CHLORIDE 0.9% 96 ML IV PRN ×3 (07:03→21:47)
[2019-11-05] MEDS: ARFORMOTEROL 15 MCG/2 ML NEB RESP TX SCH ×2 (07:51→19:42)
[2019-11-05] MEDS: PANTOPRAZOLE 40 MG VIAL IV SCH (08:59)
[2019-11-05] MEDS: ARIPiprazole 10 MG TABLET PO SCH (09:02)
[2019-11-05] MEDS: ZINC OXIDE PASTE 113 GM TUBE TOP SCH ×2 (09:03→20:46)
[2019-11-05] MEDS: MENTHOL/ZINC OXIDE OINT 71 GM JAR TOP SCH (09:03)
[2019-11-05] MEDS: NYSTATIN POWDER 15 GM BOTTLE TOP SCH ×3 (09:03→20:46)
[2019-11-05] MEDS: DESITIN 4OZ/NYSTATIN 15 GRAM MIXTURE PASTE TOP SCH ×2 (09:03→20:46)
[2019-11-05] MEDS: QUEtiapine 25 MG TABLET PO SCH ×2 (09:04→20:46)
[2019-11-05] MEDS: BENZTROPINE 1 MG TABLET PO SCH ×2 (09:04→20:45)
[2019-11-05] MEDS: DOCUSATE SODIUM 100 MG/10 ML UDCUP NG SCH ×2 (09:04→20:45)
[2019-11-05] MEDS: buPROPion 75 MG TABLET PO SCH ×2 (09:04→20:45)
[2019-11-05] MEDS ORDERED: LORazepam 2 MG/1 ML VIAL ONE (09:49)
[2019-11-05] MEDS: LORazepam 2 MG/1 ML VIAL IV PRN (09:53)
[2019-11-05] MEDS: MICAFUNGIN 100 MG in SODIUM CHLORIDE 0.9% 100 ML IV SCH (20:45)
[2019-11-06] MEDS: AMPICILLIN/SULBACTAM 3,000 MG in SODIUM CHLORIDE 0.9% 100 ML IV SCH ×4 (00:06→18:12)
[2019-11-06] MEDS: INSULIN LISPRO 100 UNIT/ML SUBCUT SCH ×5 (00:06→23:56)
[2019-11-06] MEDS: DEXMEDETOMIDINE 400 MCG in SODIUM CHLORIDE 0.9% 96 ML IV PRN ×4 (03:40→22:36)
[2019-11-06 03:45] LABS: Basophils % 0.4 % (0.0-0.8); Eosinophils # 0.3 10*3/uL (0.0-0.87); Hematocrit 30.7 VOL% (35.7-47.0); Hemoglobin 9.4 GM/DL (12.0-16.0); Immature Granulocytes Absolute 0.08 #; Lymphocytes # 1.9 10*3/uL (1.4-4.0); Mean Corpuscular HGB Conc 30.6 GM/DL (32-36); Mean Corpuscular Volume 89.8 FL (87-102); Mean Platelet Volume 9.6 FL (9.6-12.0); Monocytes % 4.9 % (1.7-12.7); Neutrophils % 65.7 % (38.7-73.9); Platelet Count 257 T/CUMM (130-400); Red Blood Count 3.42 MC/CUMM (3.8-5.5); White Blood Count 7.8 T/CUMM (4-12)
[2019-11-06 03:50] LABS: ABG Base Excess 5.2 MMOL/L (-2.5-2.5); ABG HCO3 29.7 MMOL/L (20-26); ABG PCO2 43.3 MM HG (35-48); ABG PH 7.454 (7.35-7.45); Allen Test Positive; Pt O2 Delivery Device Ventilator
[2019-11-06] MEDS: MORPHINE 4 MG/1 ML VIAL IV PRN ×2 (04:12→14:04)
[2019-11-06 04:36] LABS: INR 1.1; PT Patient Result 12.1 SECS (9.8-11.9)
[2019-11-06 04:36] LABS: Calcium 9.4 MG/DL (8.5-10.1); Osmolality,Calculated 280.5 MOS/KG (273-304)
[2019-11-06] MEDS: LORazepam 2 MG/1 ML VIAL IV PRN ×2 (04:39→12:40)
[2019-11-06] MEDS: ARFORMOTEROL 15 MCG/2 ML NEB RESP TX SCH ×2 (06:59→19:32)
[2019-11-06] MEDS ORDERED: LACTATED RINGERS 1,000 ML IV SCH (08:00)
[2019-11-06] MEDS: SCOPOLAMINE 1.5 MG PATCH TRANSDERM SCH (08:57)
[2019-11-06] MEDS: PANTOPRAZOLE 40 MG VIAL IV SCH (08:58)
[2019-11-06] MEDS: MENTHOL/ZINC OXIDE OINT 71 GM JAR TOP SCH (10:44)
[2019-11-06] MEDS: DESITIN 4OZ/NYSTATIN 15 GRAM MIXTURE PASTE TOP SCH ×2 (10:44→21:18)
[2019-11-06] MEDS: ZINC OXIDE PASTE 113 GM TUBE TOP SCH ×2 (10:44→21:18)
[2019-11-06] MEDS: NYSTATIN POWDER 15 GM BOTTLE TOP SCH ×3 (10:44→21:18)
[2019-11-06] MEDS ORDERED: LORazepam 2 MG/1 ML VIAL ONE (12:27)
[2019-11-06] MEDS: QUEtiapine 25 MG TABLET PO SCH ×2 (14:18→21:17)
[2019-11-06] MEDS: DOCUSATE SODIUM 100 MG/10 ML UDCUP NG SCH ×2 (14:18→21:18)
[2019-11-06] MEDS: buPROPion 75 MG TABLET PO SCH ×2 (14:18→21:17)
[2019-11-06] MEDS: BENZTROPINE 1 MG TABLET PO SCH ×2 (14:18→21:17)
[2019-11-06] MEDS ORDERED: LIDOCAINE 2% 5 ML VIAL ONE (15:23)
[2019-11-06] MEDS ORDERED: ETOMIDATE 40 MG/20 ML VIAL IV ONE (15:24)
[2019-11-06] MEDS ORDERED: ROCURONIUM 100 MG/10 ML VIAL IV ONE (15:24)
[2019-11-06] MEDS ORDERED: MIDAZOLAM 10 MG/2 ML VIAL ONE (15:24)
[2019-11-06] MEDS: ARIPiprazole 10 MG TABLET PO SCH (16:28)
[2019-11-06] MEDS: CHOLECALCIFEROL 5,000 UNIT TABLET PER TUBE SCH (16:30)
[2019-11-06] MEDS: MICAFUNGIN 100 MG in SODIUM CHLORIDE 0.9% 100 ML IV SCH (21:42)
[2019-11-07] MEDS: AMPICILLIN/SULBACTAM 3,000 MG in SODIUM CHLORIDE 0.9% 100 ML IV SCH ×2 (01:00→06:39)
[2019-11-07] MEDS: LORazepam 2 MG/1 ML VIAL IV PRN ×2 (01:48→08:48)
[2019-11-07] MEDS: MORPHINE 4 MG/1 ML VIAL IV PRN ×3 (03:12→18:50)
[2019-11-07 03:59] LABS: ABG Base Excess 3.9 MMOL/L (-2.5-2.5); ABG HCO3 27.9 MMOL/L (20-26); ABG Oxygen Saturation 96.8 % (95-100); ABG PCO2 42.3 MM HG (35-48); ABG PH 7.437 (7.35-7.45); ABG PO2 86.9 MM HG (80-95); ABG TCO2 25.9 MMOL/L (23-27); Allen Test Positive; Pt O2 Delivery Device Ventilator
[2019-11-07] MEDS: INSULIN LISPRO 100 UNIT/ML SUBCUT SCH ×3 (06:27→19:51)
[2019-11-07] MEDS: ARFORMOTEROL 15 MCG/2 ML NEB RESP TX SCH ×2 (06:51→19:23)
[2019-11-07] MEDS ORDERED: FUROSEMIDE 40 MG/4 ML VIAL IV ONE (08:07)
[2019-11-07] MEDS ORDERED: LORazepam 2 MG/1 ML VIAL ONE (08:29)
[2019-11-07] MEDS: PANTOPRAZOLE 40 MG VIAL IV SCH (08:51)
[2019-11-07] MEDS: CHOLECALCIFEROL 5,000 UNIT TABLET PER TUBE SCH (08:51)
[2019-11-07] MEDS: DESITIN 4OZ/NYSTATIN 15 GRAM MIXTURE PASTE TOP SCH ×2 (08:52→21:54)
[2019-11-07] MEDS: QUEtiapine 25 MG TABLET PO SCH (08:52)
[2019-11-07] MEDS: NYSTATIN POWDER 15 GM BOTTLE TOP SCH ×3 (08:52→21:54)
[2019-11-07] MEDS: ARIPiprazole 10 MG TABLET PO SCH (08:52)
[2019-11-07] MEDS: buPROPion 75 MG TABLET PO SCH ×2 (08:52→21:54)
[2019-11-07] MEDS: MENTHOL/ZINC OXIDE OINT 71 GM JAR TOP SCH (08:52)
[2019-11-07] MEDS: BENZTROPINE 1 MG TABLET PO SCH ×2 (08:53→21:53)
[2019-11-07] MEDS: DOCUSATE SODIUM 100 MG/10 ML UDCUP NG SCH ×2 (08:53→21:53)
[2019-11-07] MEDS: ZINC OXIDE PASTE 113 GM TUBE TOP SCH ×2 (08:53→21:54)
[2019-11-07] MEDS: ACETAMINOPHEN 325 MG TABLET PO PRN (09:01)
[2019-11-07] MEDS: cefTRIAXone 2,000 MG in SYRINGE 1 EACH IV SCH (12:30)
[2019-11-07] MEDS: QUEtiapine 100 MG TABLET PO SCH ×2 (12:32→21:54)
[2019-11-07] MEDS: NOREPINEPHRINE 8 MG in SODIUM CHLORIDE 0.9% 242 ML IV PRN (15:19)
[2019-11-08] MEDS: INSULIN LISPRO 100 UNIT/ML SUBCUT SCH ×4 (00:12→17:46)
[2019-11-08 02:47] LABS: ABG Base Excess 4.3 MMOL/L (-2.5-2.5); ABG HCO3 28.3 MMOL/L (20-26); ABG Oxygen Saturation 89.8 % (95-100); ABG PCO2 40.1 MM HG (35-48); ABG PH 7.467 (7.35-7.45); ABG PO2 58.4 MM HG (80-95); ABG TCO2 29.6 MMOL/L (23-27); Allen Test Positive; Pt O2 Delivery Device Ventilator
[2019-11-08 04:39] LABS: Basophils % 0.2 % (0.0-0.8); Eosinophils # 0.4 10*3/uL (0.0-0.87); Eosinophils % 3.2 % (0.00-10.9); Hematocrit 30.8 VOL% (35.7-47.0); Hemoglobin 9.5 GM/DL (12.0-16.0); Immature Granulocytes % 0.9 %; Lymphocytes # 1.7 10*3/uL (1.4-4.0); Lymphocytes % 15.1 % (21.3-54.2); Mean Corpuscular HGB Conc 30.8 GM/DL (32-36); Mean Corpuscular Volume 89.3 FL (87-102); Mean Platelet Volume 9.8 FL (9.6-12.0); Monocytes % 4.1 % (1.7-12.7); Neutrophils % 76.5 % (38.7-73.9); Platelet Count 296 T/CUMM (130-400); Red Blood Count 3.45 MC/CUMM (3.8-5.5); Red Cell Distribution Width 17.1 % (9.3-17.3); White Blood Count 11.2 T/CUMM (4-12)
[2019-11-08 05:19] LABS: Calcium 9.1 MG/DL (8.5-10.1); Osmolality,Calculated 285.3 MOS/KG (273-304)
[2019-11-08] MEDS: NOREPINEPHRINE 8 MG in SODIUM CHLORIDE 0.9% 242 ML IV PRN (05:33)
[2019-11-08] MEDS: POTASSIUM CHLORIDE 20 MEQ/15 ML UDCUP PER TUBE PRN ×4 (06:14→12:49)
[2019-11-08] MEDS ORDERED: MAGNESIUM SULF RIDER 2 GM in PREMIX 1 EACH IV ONE (07:15)
[2019-11-08] MEDS: ARFORMOTEROL 15 MCG/2 ML NEB RESP TX SCH ×2 (07:26→19:30)
[2019-11-08] MEDS: ARIPiprazole 10 MG TABLET PO SCH (08:33)
[2019-11-08] MEDS: BENZTROPINE 1 MG TABLET PO SCH ×2 (08:33→20:48)
[2019-11-08] MEDS: buPROPion 75 MG TABLET PO SCH ×2 (08:33→20:49)
[2019-11-08] MEDS: PANTOPRAZOLE 40 MG VIAL IV SCH (08:33)
[2019-11-08] MEDS: MORPHINE 4 MG/1 ML VIAL IV PRN ×3 (08:34→18:00)
[2019-11-08] MEDS: DOCUSATE SODIUM 100 MG/10 ML UDCUP NG SCH ×2 (08:34→20:48)
[2019-11-08] MEDS: QUEtiapine 100 MG TABLET PO SCH ×2 (08:35→20:49)
[2019-11-08] MEDS: CHOLECALCIFEROL 5,000 UNIT TABLET PER TUBE SCH (08:35)
[2019-11-08] MEDS: NYSTATIN POWDER 15 GM BOTTLE TOP SCH ×3 (08:36→20:49)
[2019-11-08] MEDS: DESITIN 4OZ/NYSTATIN 15 GRAM MIXTURE PASTE TOP SCH ×2 (08:36→20:49)
[2019-11-08] MEDS: ZINC OXIDE PASTE 113 GM TUBE TOP SCH ×2 (08:36→20:50)
[2019-11-08] MEDS: MENTHOL/ZINC OXIDE OINT 71 GM JAR TOP SCH (08:36)
[2019-11-08] MEDS ORDERED: fentaNYL 12 MCG/HR PATCH TRANSDERM SCH (09:00)
[2019-11-08] MEDS: cefTRIAXone 2,000 MG in SYRINGE 1 EACH IV SCH (12:15)
[2019-11-08] MEDS ORDERED: NOREPINEPHRINE 16 MG in SODIUM CHLORIDE 0.9% 234 ML IV PRN (19:13)
[2019-11-09] MEDS: INSULIN LISPRO 100 UNIT/ML SUBCUT SCH ×4 (00:45→17:57)
[2019-11-09] MEDS: MORPHINE 4 MG/1 ML VIAL IV PRN ×2 (00:54→05:43)
[2019-11-09 04:35] LABS: ABG Base Excess 3.1 MMOL/L (-2.5-2.5); ABG Oxygen Saturation 92.5 % (95-100); ABG PCO2 44.5 MM HG (35-48); ABG PH 7.417 (7.35-7.45); ABG PO2 66.3 MM HG (80-95); ABG TCO2 29.4 MMOL/L (23-27); Allen Test Positive; Pt O2 Delivery Device Ventilator
[2019-11-09 05:10] LABS: Basophils % 0.3 % (0.0-0.8); Eosinophils # 0.4 10*3/uL (0.0-0.87); Eosinophils % 4.4 % (0.00-10.9); Hematocrit 31.4 VOL% (35.7-47.0); Hemoglobin 9.5 GM/DL (12.0-16.0); Immature Granulocytes Absolute 0.09 #; Lymphocytes % 21.7 % (21.3-54.2); Mean Corpuscular HGB Conc 30.3 GM/DL (32-36); Mean Corpuscular Volume 91.5 FL (87-102); Mean Platelet Volume 9.8 FL (9.6-12.0); Monocytes % 3.3 % (1.7-12.7); Neutrophils % 69.3 % (38.7-73.9); Platelet Count 296 T/CUMM (130-400); Red Blood Count 3.43 MC/CUMM (3.8-5.5); Red Cell Distribution Width 17.2 % (9.3-17.3); White Blood Count 9.2 T/CUMM (4-12)
[2019-11-09 05:39] LABS: Osmolality,Calculated 281.4 MOS/KG (273-304)
[2019-11-09] MEDS: POTASSIUM CHLORIDE 20 MEQ/15 ML UDCUP PER TUBE PRN (06:01)
[2019-11-09] MEDS: LORazepam 2 MG/1 ML VIAL IV PRN (06:18)
[2019-11-09] MEDS: ARFORMOTEROL 15 MCG/2 ML NEB RESP TX SCH ×2 (07:08→19:20)
[2019-11-09] MEDS: MENTHOL/ZINC OXIDE OINT 71 GM JAR TOP SCH (08:12)
[2019-11-09] MEDS: ZINC OXIDE PASTE 113 GM TUBE TOP SCH ×2 (08:12→21:07)
[2019-11-09] MEDS: NYSTATIN POWDER 15 GM BOTTLE TOP SCH ×3 (08:12→21:07)
[2019-11-09] MEDS: ARIPiprazole 10 MG TABLET PO SCH (08:13)
[2019-11-09] MEDS: BENZTROPINE 1 MG TABLET PO SCH ×2 (08:13→21:07)
[2019-11-09] MEDS: QUEtiapine 100 MG TABLET PO SCH ×2 (08:14→21:06)
[2019-11-09] MEDS: SCOPOLAMINE 1.5 MG PATCH TRANSDERM SCH ×2 (08:14→11:44)
[2019-11-09] MEDS: buPROPion 75 MG TABLET PO SCH ×2 (08:14→21:06)
[2019-11-09] MEDS: CHOLECALCIFEROL 5,000 UNIT TABLET PER TUBE SCH (08:14)
[2019-11-09] MEDS: PANTOPRAZOLE 40 MG VIAL IV SCH (08:15)
[2019-11-09] MEDS: DESITIN 4OZ/NYSTATIN 15 GRAM MIXTURE PASTE TOP SCH ×2 (08:15→21:07)
[2019-11-09] MEDS: DOCUSATE SODIUM 100 MG/10 ML UDCUP NG SCH ×2 (08:15→21:06)
[2019-11-09] MEDS ORDERED: MORPHINE 4 MG/1 ML VIAL IV PRN (08:37)
[2019-11-09] MEDS: cefTRIAXone 2,000 MG in SYRINGE 1 EACH IV SCH (11:41)
[2019-11-09] MEDS: METOCLOPRAMIDE 10 MG/2 ML VIAL IV SCH (17:58)
[2019-11-10] MEDS: INSULIN LISPRO 100 UNIT/ML SUBCUT SCH ×4 (00:32→17:39)
[2019-11-10] MEDS: METOCLOPRAMIDE 10 MG/2 ML VIAL IV SCH ×4 (00:33→17:39)
[2019-11-10 04:28] LABS: ABG Base Excess 4.5 MMOL/L (-2.5-2.5); ABG HCO3 28.4 MMOL/L (20-26); ABG Oxygen Saturation 94.5 % (95-100); ABG PCO2 43.6 MM HG (35-48); ABG PH 7.435 (7.35-7.45); ABG TCO2 26.7 MMOL/L (23-27); Allen Test Positive; Pt O2 Delivery Device Ventilator
[2019-11-10 05:05] LABS: Basophils % 0.1 % (0.0-0.8); Eosinophils # 0.4 10*3/uL (0.0-0.87); Eosinophils % 4.3 % (0.00-10.9); Hemoglobin 9.1 GM/DL (12.0-16.0); Immature Granulocytes % 1.4 %; Immature Granulocytes Absolute 0.11 #; Lymphocytes # 1.8 10*3/uL (1.4-4.0); Lymphocytes % 21.9 % (21.3-54.2); Mean Corpuscular HGB Conc 29.4 GM/DL (32-36); Mean Corpuscular Volume 92.8 FL (87-102); Mean Platelet Volume 9.5 FL (9.6-12.0); Monocytes % 4.4 % (1.7-12.7); Neutrophils % 67.9 % (38.7-73.9); Platelet Count 332 T/CUMM (130-400); Red Blood Count 3.34 MC/CUMM (3.8-5.5); Red Cell Distribution Width 16.8 % (9.3-17.3); White Blood Count 8.1 T/CUMM (4-12)
[2019-11-10 05:39] LABS: Calcium 9.1 MG/DL (8.5-10.1); Osmolality,Calculated 284.1 MOS/KG (273-304)
[2019-11-10] MEDS: ARFORMOTEROL 15 MCG/2 ML NEB RESP TX SCH ×2 (07:11→19:36)
[2019-11-10] MEDS: DOCUSATE SODIUM 100 MG/10 ML UDCUP NG SCH ×2 (09:04→20:52)
[2019-11-10] MEDS: CHOLECALCIFEROL 5,000 UNIT TABLET PER TUBE SCH (09:04)
[2019-11-10] MEDS: QUEtiapine 100 MG TABLET PO SCH ×2 (09:04→20:53)
[2019-11-10] MEDS: ARIPiprazole 10 MG TABLET PO SCH (09:04)
[2019-11-10] MEDS: BENZTROPINE 1 MG TABLET PO SCH ×2 (09:05→20:53)
[2019-11-10] MEDS: buPROPion 75 MG TABLET PO SCH ×2 (09:05→20:52)
[2019-11-10] MEDS: PANTOPRAZOLE 40 MG VIAL IV SCH (09:06)
[2019-11-10] MEDS: ZINC OXIDE PASTE 113 GM TUBE TOP SCH ×2 (09:07→20:52)
[2019-11-10] MEDS: DESITIN 4OZ/NYSTATIN 15 GRAM MIXTURE PASTE TOP SCH ×2 (09:07→20:52)
[2019-11-10] MEDS: NYSTATIN POWDER 15 GM BOTTLE TOP SCH ×3 (09:07→20:52)
[2019-11-10] MEDS: MENTHOL/ZINC OXIDE OINT 71 GM JAR TOP SCH (09:07)
[2019-11-10] MEDS ORDERED: ALBUMIN 5% 12.5 GM in PREMIX 1 EACH IV ONE (10:50)
[2019-11-10] MEDS: DEXMEDETOMIDINE 400 MCG in SODIUM CHLORIDE 0.9% 96 ML IV PRN ×2 (11:05→16:57)
[2019-11-10] MEDS: cefTRIAXone 2,000 MG in SYRINGE 1 EACH IV SCH (11:45)
[2019-11-10] MEDS: fentaNYL INJ 1,250 MCG in SODIUM CHLORIDE 0.9% 225 ML IV PRN (11:51)
[2019-11-10] MEDS: ALBUTEROL/IPRATROPIUM 3 ML NEB RESP TX SCH ×4 (11:54→23:43)
[2019-11-10] MEDS: BUDESONIDE 0.5 MG/2 ML NEB RESP TX SCH ×2 (11:54→19:36)
[2019-11-11] MEDS: DEXMEDETOMIDINE 400 MCG in SODIUM CHLORIDE 0.9% 96 ML IV PRN ×3 (00:14→16:25)
[2019-11-11] MEDS: METOCLOPRAMIDE 10 MG/2 ML VIAL IV SCH ×5 (00:14→23:24)
[2019-11-11] MEDS: INSULIN LISPRO 100 UNIT/ML SUBCUT SCH ×5 (00:15→23:33)
[2019-11-11] MEDS: fentaNYL INJ 1,250 MCG in SODIUM CHLORIDE 0.9% 225 ML IV PRN ×3 (00:42→18:15)
[2019-11-11] MEDS: ALBUTEROL/IPRATROPIUM 3 ML NEB RESP TX SCH ×6 (03:25→23:34)
[2019-11-11 04:34] LABS: ABG HCO3 29.7 MMOL/L (20-26); ABG Oxygen Saturation 93.2 % (95-100); ABG PCO2 51.3 MM HG (35-48); ABG PH 7.381 (7.35-7.45); ABG PO2 69.8 MM HG (80-95); ABG TCO2 31.3 MMOL/L (23-27); Allen Test Positive; Pt O2 Delivery Device Ventilator
[2019-11-11 05:14] LABS: Basophils % 0.3 % (0.0-0.8); Eosinophils # 0.3 10*3/uL (0.0-0.87); Eosinophils % 5.4 % (0.00-10.9); Hematocrit 31.2 VOL% (35.7-47.0); Hemoglobin 9.1 GM/DL (12.0-16.0); Immature Granulocytes % 1.5 %; Immature Granulocytes Absolute 0.09 #; Lymphocytes # 1.6 10*3/uL (1.4-4.0); Mean Corpuscular HGB Conc 29.2 GM/DL (32-36); Mean Corpuscular Volume 93.7 FL (87-102); Monocytes % 4.4 % (1.7-12.7); NRBC # 0.02 10*3/uL; Neutrophils % 62.4 % (38.7-73.9); Platelet Count 296 T/CUMM (130-400); Red Blood Count 3.33 MC/CUMM (3.8-5.5); Red Cell Distribution Width 16.4 % (9.3-17.3); White Blood Count 6.1 T/CUMM (4-12)
[2019-11-11 05:26] LABS: Osmolality,Calculated 288.7 MOS/KG (273-304)
[2019-11-11 05:34] LABS: Eosinophils 4 % (0-10); Hypochromasia 1+; Lymphocytes 23 % (20-55); Microcytosis Slight; Platelet Estimate Adequate; Segmented Neutrophils 71 % (50-85); Total Cells Counted 100
[2019-11-11 05:44] LABS: Prealbumin 16.7 MG/DL (20-40)
[2019-11-11] MEDS: ARFORMOTEROL 15 MCG/2 ML NEB RESP TX SCH ×2 (07:30→19:37)
[2019-11-11] MEDS: BUDESONIDE 0.5 MG/2 ML NEB RESP TX SCH ×2 (07:45→19:37)
[2019-11-11] MEDS: ARIPiprazole 10 MG TABLET PO SCH (08:34)
[2019-11-11] MEDS: DOCUSATE SODIUM 100 MG/10 ML UDCUP NG SCH ×2 (08:34→20:50)
[2019-11-11] MEDS: buPROPion 75 MG TABLET PO SCH ×2 (08:34→20:50)
[2019-11-11] MEDS: PANTOPRAZOLE 40 MG VIAL IV SCH (08:34)
[2019-11-11] MEDS: CHOLECALCIFEROL 5,000 UNIT TABLET PER TUBE SCH (08:34)
[2019-11-11] MEDS: BENZTROPINE 1 MG TABLET PO SCH ×2 (08:34→20:50)
[2019-11-11] MEDS: QUEtiapine 100 MG TABLET PO SCH ×2 (08:35→20:50)
[2019-11-11] MEDS: NYSTATIN POWDER 15 GM BOTTLE TOP SCH ×3 (09:15→20:50)
[2019-11-11] MEDS: DESITIN 4OZ/NYSTATIN 15 GRAM MIXTURE PASTE TOP SCH ×2 (09:15→20:50)
[2019-11-11] MEDS: ZINC OXIDE PASTE 113 GM TUBE TOP SCH ×2 (09:15→20:51)
[2019-11-11] MEDS: MENTHOL/ZINC OXIDE OINT 71 GM JAR TOP SCH (09:16)
[2019-11-11] MEDS: POTASSIUM CHLORIDE 20 MEQ/15 ML UDCUP PER TUBE PRN ×4 (09:17→17:36)
[2019-11-11] MEDS: cefTRIAXone 2,000 MG in SYRINGE 1 EACH IV SCH (11:52)
[2019-11-11] MEDS ORDERED: NOREPINEPHRINE 4 MG/4 ML VIAL IV ONE (15:55)
[2019-11-11] MEDS: NOREPINEPHRINE 8 MG in SODIUM CHLORIDE 0.9% 242 ML IV PRN (16:01)
[2019-11-12] MEDS: DEXMEDETOMIDINE 400 MCG in SODIUM CHLORIDE 0.9% 96 ML IV PRN ×4 (00:39→21:14)
[2019-11-12] MEDS: fentaNYL INJ 1,250 MCG in SODIUM CHLORIDE 0.9% 225 ML IV PRN ×6 (01:34→21:14)
[2019-11-12] MEDS: ALBUTEROL/IPRATROPIUM 3 ML NEB RESP TX SCH ×6 (03:18→23:17)
[2019-11-12 04:23] LABS: ABG Base Excess 2.8 MMOL/L (-2.5-2.5); ABG HCO3 26.8 MMOL/L (20-26); ABG Oxygen Saturation 90.5 % (95-100); ABG PCO2 52.4 MM HG (35-48); ABG PH 7.353 (7.35-7.45); ABG PO2 62.9 MM HG (80-95); ABG TCO2 26.9 MMOL/L (23-27); Allen Test Positive; Pt O2 Delivery Device Ventilator
[2019-11-12 04:51] LABS: Basophils % 0.3 % (0.0-0.8); Eosinophils # 0.3 10*3/uL (0.0-0.87); Eosinophils % 4.6 % (0.00-10.9); Immature Granulocytes % 1.6 %; Immature Granulocytes Absolute 0.12 #; Lymphocytes # 2.3 10*3/uL (1.4-4.0); Lymphocytes % 30.4 % (21.3-54.2); Mean Corpuscular HGB Conc 28.8 GM/DL (32-36); Mean Corpuscular Volume 94.5 FL (87-102); Mean Platelet Volume 9.5 FL (9.6-12.0); Monocytes % 4.3 % (1.7-12.7); NRBC # 0.04 10*3/uL; Neutrophils % 58.8 % (38.7-73.9); Platelet Count 300 T/CUMM (130-400); Red Blood Count 3.45 MC/CUMM (3.8-5.5); Red Cell Distribution Width 16.9 % (9.3-17.3); White Blood Count 7.4 T/CUMM (4-12)
[2019-11-12] MEDS: METOCLOPRAMIDE 10 MG/2 ML VIAL IV SCH ×3 (05:16→17:06)
[2019-11-12 05:23] LABS: Hematocrit 32.3 VOL% (35.7-47.0); Hemoglobin 9.5 GM/DL (12.0-16.0)
[2019-11-12] MEDS: INSULIN LISPRO 100 UNIT/ML SUBCUT SCH ×3 (05:24→17:11)
[2019-11-12 05:30] LABS: Hypochromasia 1+; Microcytosis Slight; Platelet Estimate Adequate
[2019-11-12] MEDS: BUDESONIDE 0.5 MG/2 ML NEB RESP TX SCH ×2 (06:44→19:03)
[2019-11-12] MEDS: ARFORMOTEROL 15 MCG/2 ML NEB RESP TX SCH ×2 (06:44→19:03)
[2019-11-12] MEDS: PANTOPRAZOLE 40 MG VIAL IV SCH (09:13)
[2019-11-12] MEDS: ARIPiprazole 10 MG TABLET PO SCH (09:13)
[2019-11-12] MEDS: QUEtiapine 100 MG TABLET PO SCH ×2 (09:13→20:21)
[2019-11-12] MEDS: DOCUSATE SODIUM 100 MG/10 ML UDCUP NG SCH ×2 (09:13→20:21)
[2019-11-12] MEDS: CHOLECALCIFEROL 5,000 UNIT TABLET PER TUBE SCH (09:13)
[2019-11-12] MEDS: FUROSEMIDE 40 MG/4 ML VIAL IV SCH ×2 (09:13→17:06)
[2019-11-12] MEDS: ZINC OXIDE PASTE 113 GM TUBE TOP SCH ×2 (09:14→20:21)
[2019-11-12] MEDS: DESITIN 4OZ/NYSTATIN 15 GRAM MIXTURE PASTE TOP SCH ×2 (09:14→20:21)
[2019-11-12] MEDS: NYSTATIN POWDER 15 GM BOTTLE TOP SCH ×3 (09:14→20:21)
[2019-11-12] MEDS: MENTHOL/ZINC OXIDE OINT 71 GM JAR TOP SCH (09:14)
[2019-11-12] MEDS: BENZTROPINE 1 MG TABLET PO SCH ×2 (09:14→20:21)
[2019-11-12] MEDS: buPROPion 75 MG TABLET PO SCH ×2 (09:14→20:21)
[2019-11-12] MEDS: cefTRIAXone 2,000 MG in SYRINGE 1 EACH IV SCH (11:23)
[2019-11-12] MEDS ORDERED: FUROSEMIDE 40 MG/4 ML VIAL IV SCH (16:00)
[2019-11-13] MEDS: INSULIN LISPRO 100 UNIT/ML SUBCUT SCH ×4 (00:09→18:21)
[2019-11-13] MEDS: METOCLOPRAMIDE 10 MG/2 ML VIAL IV SCH ×4 (00:09→18:21)
[2019-11-13] MEDS: fentaNYL INJ 2,500 MCG in SODIUM CHLORIDE 0.9% 450 ML IV PRN ×5 (00:54→21:25)
[2019-11-13 03:10] LABS: ABG Base Excess 7.8 MMOL/L (-2.5-2.5); ABG HCO3 34.5 MMOL/L (20-26); ABG PCO2 60.3 MM HG (35-48); ABG PH 7.375 (7.35-7.45); ABG PO2 86.6 MM HG (80-95); ABG TCO2 36.3 MMOL/L (23-27)
[2019-11-13] MEDS: ALBUTEROL/IPRATROPIUM 3 ML NEB RESP TX SCH ×6 (03:18→23:41)
[2019-11-13 04:02] LABS: Calcium 8.5 MG/DL (8.5-10.1); Osmolality,Calculated 284.1 MOS/KG (273-304)
[2019-11-13 04:09] LABS: Basophils % 0.2 % (0.0-0.8); Eosinophils # 0.4 10*3/uL (0.0-0.87); Eosinophils % 4.6 % (0.00-10.9); Hematocrit 33.1 VOL% (35.7-47.0); Hemoglobin 9.7 GM/DL (12.0-16.0); Immature Granulocytes % 1.1 %; Lymphocytes # 3.2 10*3/uL (1.4-4.0); Lymphocytes % 35.7 % (21.3-54.2); Mean Corpuscular HGB Conc 29.3 GM/DL (32-36); Mean Platelet Volume 9.1 FL (9.6-12.0); Monocytes % 3.7 % (1.7-12.7); NRBC # 0.03 10*3/uL; Neutrophils % 54.7 % (38.7-73.9); Platelet Count 267 T/CUMM (130-400); Red Blood Count 3.52 MC/CUMM (3.8-5.5); Red Cell Distribution Width 16.4 % (9.3-17.3)
[2019-11-13] MEDS: DEXMEDETOMIDINE 400 MCG in SODIUM CHLORIDE 0.9% 96 ML IV PRN ×4 (04:13→23:55)
[2019-11-13] MEDS: BUDESONIDE 0.5 MG/2 ML NEB RESP TX SCH ×2 (07:37→20:06)
[2019-11-13] MEDS: ARFORMOTEROL 15 MCG/2 ML NEB RESP TX SCH ×2 (07:37→20:06)
[2019-11-13] MEDS: FUROSEMIDE 40 MG/4 ML VIAL IV SCH ×2 (09:34→15:42)
[2019-11-13] MEDS: ZINC OXIDE PASTE 113 GM TUBE TOP SCH ×2 (09:35→20:55)
[2019-11-13] MEDS: DOCUSATE SODIUM 100 MG/10 ML UDCUP NG SCH ×2 (09:35→20:27)
[2019-11-13] MEDS: ARIPiprazole 10 MG TABLET PO SCH (09:35)
[2019-11-13] MEDS: BENZTROPINE 1 MG TABLET PO SCH ×2 (09:35→20:53)
[2019-11-13] MEDS: MENTHOL/ZINC OXIDE OINT 71 GM JAR TOP SCH (09:35)
[2019-11-13] MEDS: CHOLECALCIFEROL 5,000 UNIT TABLET PER TUBE SCH (09:36)
[2019-11-13] MEDS: DESITIN 4OZ/NYSTATIN 15 GRAM MIXTURE PASTE TOP SCH ×2 (09:36→20:55)
[2019-11-13] MEDS: buPROPion 75 MG TABLET PO SCH ×2 (09:36→20:27)
[2019-11-13] MEDS: PANTOPRAZOLE 40 MG VIAL IV SCH (09:36)
[2019-11-13] MEDS: NYSTATIN POWDER 15 GM BOTTLE TOP SCH ×3 (09:36→20:55)
[2019-11-13] MEDS: QUEtiapine 100 MG TABLET PO SCH ×2 (09:36→20:27)
[2019-11-13] MEDS: cefTRIAXone 2,000 MG in SYRINGE 1 EACH IV SCH (09:47)
[2019-11-13] MEDS: HALOPERIDOL 5 MG/ML AMP IM PRN (10:41)
[2019-11-13] MEDS: guaiFENesin/CODEINE 5 ML LIQUID PO PRN ×2 (15:42→20:53)
[2019-11-13] MEDS: NOREPINEPHRINE 8 MG in SODIUM CHLORIDE 0.9% 242 ML IV PRN (16:48)
[2019-11-14] MEDS: HALOPERIDOL 5 MG/ML AMP IM PRN ×2 (00:25→07:52)
[2019-11-14] MEDS: METOCLOPRAMIDE 10 MG/2 ML VIAL IV SCH ×2 (00:30→06:05)
[2019-11-14] MEDS: INSULIN LISPRO 100 UNIT/ML SUBCUT SCH ×4 (00:34→17:42)
[2019-11-14] MEDS: fentaNYL INJ 2,500 MCG in SODIUM CHLORIDE 0.9% 450 ML IV PRN ×3 (01:04→07:50)
[2019-11-14] MEDS: ALBUTEROL/IPRATROPIUM 3 ML NEB RESP TX SCH ×5 (03:03→20:48)
[2019-11-14 04:49] LABS: ABG Base Excess 8.3 MMOL/L (-2.5-2.5); ABG HCO3 32.1 MMOL/L (20-26); ABG Oxygen Saturation 95.2 % (95-100); ABG PH 7.389 (7.35-7.45); ABG PO2 74.5 MM HG (80-95); Allen Test Positive; Pt O2 Delivery Device Ventilator
[2019-11-14 05:05] LABS: Basophils % 0.2 % (0.0-0.8); Eosinophils # 0.4 10*3/uL (0.0-0.87); Eosinophils % 3.2 % (0.00-10.9); Hematocrit 32.2 VOL% (35.7-47.0); Hemoglobin 9.7 GM/DL (12.0-16.0); Immature Granulocytes % 0.6 %; Immature Granulocytes Absolute 0.07 #; Lymphocytes # 3.3 10*3/uL (1.4-4.0); Lymphocytes % 27.2 % (21.3-54.2); Mean Corpuscular HGB Conc 30.1 GM/DL (32-36); Mean Corpuscular Volume 91.2 FL (87-102); Neutrophils % 64.8 % (38.7-73.9); Platelet Count 237 T/CUMM (130-400); Red Blood Count 3.53 MC/CUMM (3.8-5.5); Red Cell Distribution Width 16.6 % (9.3-17.3); White Blood Count 12.1 T/CUMM (4-12)
[2019-11-14 05:29] LABS: Calcium 8.4 MG/DL (8.5-10.1); Osmolality,Calculated 281.3 MOS/KG (273-304)
[2019-11-14] MEDS: DEXMEDETOMIDINE 400 MCG in SODIUM CHLORIDE 0.9% 96 ML IV PRN (06:05)
[2019-11-14] MEDS: ARFORMOTEROL 15 MCG/2 ML NEB RESP TX SCH ×2 (07:00→20:48)
[2019-11-14] MEDS: BUDESONIDE 0.5 MG/2 ML NEB RESP TX SCH ×2 (07:00→20:48)
[2019-11-14] MEDS ORDERED: MAGNESIUM SULF RIDER 4 GM in PREMIX 1 EACH IV ONE (08:23)
[2019-11-14] MEDS: POTASSIUM CHLORIDE 20 MEQ/15 ML UDCUP PER TUBE PRN ×2 (08:24→16:02)
[2019-11-14] MEDS: ARIPiprazole 10 MG TABLET PO SCH (08:24)
[2019-11-14] MEDS: buPROPion 75 MG TABLET PO SCH ×2 (08:24→20:55)
[2019-11-14] MEDS: guaiFENesin/CODEINE 5 ML LIQUID PO PRN (08:24)
[2019-11-14] MEDS: BENZTROPINE 1 MG TABLET PO SCH ×2 (08:24→20:56)
[2019-11-14] MEDS: CHOLECALCIFEROL 5,000 UNIT TABLET PER TUBE SCH (08:24)
[2019-11-14] MEDS: DOCUSATE SODIUM 100 MG/10 ML UDCUP NG SCH ×2 (08:24→20:55)
[2019-11-14] MEDS: QUEtiapine 100 MG TABLET PO SCH ×2 (08:24→20:55)
[2019-11-14] MEDS: PANTOPRAZOLE 40 MG VIAL IV SCH (08:25)
[2019-11-14] MEDS: NYSTATIN POWDER 15 GM BOTTLE TOP SCH ×3 (08:25→20:56)
[2019-11-14] MEDS: MENTHOL/ZINC OXIDE OINT 71 GM JAR TOP SCH (08:25)
[2019-11-14] MEDS: ZINC OXIDE PASTE 113 GM TUBE TOP SCH ×2 (08:25→20:56)
[2019-11-14] MEDS: FUROSEMIDE 40 MG/4 ML VIAL IV SCH ×3 (08:25→17:38)
[2019-11-14] MEDS: DESITIN 4OZ/NYSTATIN 15 GRAM MIXTURE PASTE TOP SCH ×2 (08:26→20:56)
[2019-11-14] MEDS: cefTRIAXone 2,000 MG in SYRINGE 1 EACH IV SCH (08:30)
[2019-11-14] MEDS ORDERED: fentaNYL 50 MCG/HR PATCH TRANSDERM SCH (09:00)
[2019-11-14] MEDS ORDERED: INFLUENZA VIRUS VACCINE 0.5 ML SYRINGE IM ONE (12:12)
[2019-11-14] MEDS: NOREPINEPHRINE 8 MG in SODIUM CHLORIDE 0.9% 242 ML IV PRN (12:32)
[2019-11-15] MEDS: INSULIN LISPRO 100 UNIT/ML SUBCUT SCH ×4 (00:12→18:00)
[2019-11-15] MEDS: ALBUTEROL/IPRATROPIUM 3 ML NEB RESP TX SCH ×7 (00:17→23:46)
[2019-11-15] MEDS: FUROSEMIDE 40 MG/4 ML VIAL IV SCH ×3 (02:00→17:50)
[2019-11-15 04:35] LABS: ABG Base Excess 11.3 MMOL/L (-2.5-2.5); ABG HCO3 35.1 MMOL/L (20-26); ABG Oxygen Saturation 96.6 % (95-100); ABG PCO2 58.9 MM HG (35-48); ABG PH 7.417 (7.35-7.45); ABG PO2 81.6 MM HG (80-95); ABG TCO2 34.7 MMOL/L (23-27); Allen Test Positive; Pt O2 Delivery Device Ventilator
[2019-11-15 05:06] LABS: Basophils % 0.1 % (0.0-0.8); Eosinophils # 0.5 10*3/uL (0.0-0.87); Eosinophils % 5.9 % (0.00-10.9); Hematocrit 30.7 VOL% (35.7-47.0); Hemoglobin 9.1 GM/DL (12.0-16.0); Immature Granulocytes % 0.7 %; Immature Granulocytes Absolute 0.06 #; Lymphocytes # 2.4 10*3/uL (1.4-4.0); Lymphocytes % 27.2 % (21.3-54.2); Mean Corpuscular HGB Conc 29.6 GM/DL (32-36); Mean Corpuscular Volume 92.7 FL (87-102); Mean Platelet Volume 9.2 FL (9.6-12.0); Monocytes % 3.9 % (1.7-12.7); Neutrophils % 62.2 % (38.7-73.9); Platelet Count 229 T/CUMM (130-400); Red Blood Count 3.31 MC/CUMM (3.8-5.5); White Blood Count 8.8 T/CUMM (4-12)
[2019-11-15 05:28] LABS: Calcium 8.5 MG/DL (8.5-10.1); Osmolality,Calculated 279.5 MOS/KG (273-304)
[2019-11-15] MEDS: ARFORMOTEROL 15 MCG/2 ML NEB RESP TX SCH ×2 (07:09→19:39)
[2019-11-15] MEDS: BUDESONIDE 0.5 MG/2 ML NEB RESP TX SCH ×2 (07:09→19:39)
[2019-11-15] MEDS: DOCUSATE SODIUM 100 MG/10 ML UDCUP NG SCH ×2 (09:05→20:49)
[2019-11-15] MEDS: buPROPion 75 MG TABLET PO SCH ×2 (09:05→20:47)
[2019-11-15] MEDS: PANTOPRAZOLE 40 MG VIAL IV SCH (09:05)
[2019-11-15] MEDS: QUEtiapine 100 MG TABLET PO SCH ×2 (09:05→20:47)
[2019-11-15] MEDS: ARIPiprazole 10 MG TABLET PO SCH (09:05)
[2019-11-15] MEDS: BENZTROPINE 1 MG TABLET PO SCH ×2 (09:05→20:47)
[2019-11-15] MEDS: CHOLECALCIFEROL 5,000 UNIT TABLET PER TUBE SCH (09:05)
[2019-11-15] MEDS: POTASSIUM CHLORIDE 20 MEQ/15 ML UDCUP PER TUBE SCH ×3 (09:05→17:50)
[2019-11-15] MEDS: cefTRIAXone 2,000 MG in SYRINGE 1 EACH IV SCH (09:10)
[2019-11-15] MEDS: MENTHOL/ZINC OXIDE OINT 71 GM JAR TOP SCH (09:30)
[2019-11-15] MEDS: DESITIN 4OZ/NYSTATIN 15 GRAM MIXTURE PASTE TOP SCH ×2 (09:30→20:50)
[2019-11-15] MEDS: ZINC OXIDE PASTE 113 GM TUBE TOP SCH ×2 (09:30→20:50)
[2019-11-15] MEDS: NYSTATIN POWDER 15 GM BOTTLE TOP SCH ×3 (09:30→20:50)
[2019-11-15] MEDS: fentaNYL 50 MCG/HR PATCH TRANSDERM SCH (11:15)
[2019-11-15] MEDS: NOREPINEPHRINE 8 MG in SODIUM CHLORIDE 0.9% 242 ML IV PRN (12:00)
[2019-11-16] MEDS: INSULIN LISPRO 100 UNIT/ML SUBCUT SCH ×4 (00:18→17:39)
[2019-11-16] MEDS: FUROSEMIDE 40 MG/4 ML VIAL IV SCH ×3 (01:36→16:50)
[2019-11-16 02:37] LABS: ABG HCO3 38.7 MMOL/L (20-26); ABG Oxygen Saturation 93.9 % (95-100); ABG PCO2 63.5 MM HG (35-48); ABG PH 7.403 (7.35-7.45); ABG PO2 74.5 MM HG (80-95); ABG TCO2 40.7 MMOL/L (23-27); Allen Test Positive; Pt O2 Delivery Device Ventilator
[2019-11-16] MEDS: ALBUTEROL/IPRATROPIUM 3 ML NEB RESP TX SCH ×6 (02:43→23:35)
[2019-11-16 05:06] LABS: Basophils % 0.2 % (0.0-0.8); Eosinophils # 0.6 10*3/uL (0.0-0.87); Eosinophils % 7.1 % (0.00-10.9); Hematocrit 31.4 VOL% (35.7-47.0); Hemoglobin 9.3 GM/DL (12.0-16.0); Immature Granulocytes % 0.6 %; Immature Granulocytes Absolute 0.05 #; Lymphocytes # 1.8 10*3/uL (1.4-4.0); Lymphocytes % 20.5 % (21.3-54.2); Mean Corpuscular HGB Conc 29.6 GM/DL (32-36); Mean Corpuscular Volume 91.8 FL (87-102); Mean Platelet Volume 9.4 FL (9.6-12.0); Monocytes % 4.2 % (1.7-12.7); Neutrophils % 67.4 % (38.7-73.9); Platelet Count 206 T/CUMM (130-400); Red Blood Count 3.42 MC/CUMM (3.8-5.5); Red Cell Distribution Width 17.1 % (9.3-17.3); White Blood Count 8.8 T/CUMM (4-12)
[2019-11-16 05:19] LABS: Calcium 8.8 MG/DL (8.5-10.1); Osmolality,Calculated 282.4 MOS/KG (273-304)
[2019-11-16] MEDS: POTASSIUM CHLORIDE 20 MEQ/15 ML UDCUP PER TUBE PRN (05:45)
[2019-11-16] MEDS: ARFORMOTEROL 15 MCG/2 ML NEB RESP TX SCH ×2 (07:08→19:08)
[2019-11-16] MEDS: BUDESONIDE 0.5 MG/2 ML NEB RESP TX SCH ×2 (07:08→19:08)
[2019-11-16] MEDS: POTASSIUM CHLORIDE 20 MEQ/15 ML UDCUP PER TUBE SCH ×4 (09:25→20:08)
[2019-11-16] MEDS: CHOLECALCIFEROL 5,000 UNIT TABLET PER TUBE SCH (09:25)
[2019-11-16] MEDS: ARIPiprazole 10 MG TABLET PO SCH (09:25)
[2019-11-16] MEDS: DOCUSATE SODIUM 100 MG/10 ML UDCUP NG SCH ×2 (09:25→20:08)
[2019-11-16] MEDS: buPROPion 75 MG TABLET PO SCH ×2 (09:25→20:09)
[2019-11-16] MEDS: cefTRIAXone 2,000 MG in SYRINGE 1 EACH IV SCH (09:26)
[2019-11-16] MEDS: QUEtiapine 100 MG TABLET PO SCH ×2 (09:26→20:09)
[2019-11-16] MEDS: PANTOPRAZOLE 40 MG VIAL IV SCH (09:31)
[2019-11-16] MEDS: BENZTROPINE 1 MG TABLET PO SCH ×2 (09:37→20:08)
[2019-11-16] MEDS: ZINC OXIDE PASTE 113 GM TUBE TOP SCH ×2 (09:41→20:10)
[2019-11-16] MEDS: NYSTATIN POWDER 15 GM BOTTLE TOP SCH ×3 (09:41→20:10)
[2019-11-16] MEDS: MENTHOL/ZINC OXIDE OINT 71 GM JAR TOP SCH (09:41)
[2019-11-16] MEDS: DESITIN 4OZ/NYSTATIN 15 GRAM MIXTURE PASTE TOP SCH ×2 (09:42→20:10)
[2019-11-16] MEDS: NOREPINEPHRINE 8 MG in SODIUM CHLORIDE 0.9% 242 ML IV PRN (14:24)
[2019-11-17] MEDS: INSULIN LISPRO 100 UNIT/ML SUBCUT SCH ×4 (01:08→17:55)
[2019-11-17] MEDS: ALBUTEROL/IPRATROPIUM 3 ML NEB RESP TX SCH ×7 (01:46→23:56)
[2019-11-17] MEDS: FUROSEMIDE 40 MG/4 ML VIAL IV SCH ×3 (02:03→17:01)
[2019-11-17 04:11] LABS: ABG Base Excess 10.8 MMOL/L (-2.5-2.5); ABG HCO3 37.2 MMOL/L (20-26); ABG Oxygen Saturation 93.5 % (95-100); ABG PCO2 60.6 MM HG (35-48); ABG PH 7.406 (7.35-7.45); ABG PO2 70.8 MM HG (80-95); ABG TCO2 39.1 MMOL/L (23-27); Allen Test Positive; Pt O2 Delivery Device Ventilator
[2019-11-17 04:49] LABS: Basophils % 0.2 % (0.0-0.8); Eosinophils # 0.7 10*3/uL (0.0-0.87); Eosinophils % 8.7 % (0.00-10.9); Hematocrit 31.3 VOL% (35.7-47.0); Hemoglobin 9.3 GM/DL (12.0-16.0); Immature Granulocytes % 0.7 %; Immature Granulocytes Absolute 0.06 #; Lymphocytes # 2.2 10*3/uL (1.4-4.0); Mean Corpuscular HGB Conc 29.7 GM/DL (32-36); Mean Corpuscular Volume 95.1 FL (87-102); Mean Platelet Volume 9.5 FL (9.6-12.0); Monocytes % 4.5 % (1.7-12.7); NRBC # 0.02 10*3/uL; Neutrophils % 58.9 % (38.7-73.9); Platelet Count 199 T/CUMM (130-400); Red Blood Count 3.29 MC/CUMM (3.8-5.5); Red Cell Distribution Width 17.1 % (9.3-17.3); White Blood Count 8.1 T/CUMM (4-12)
[2019-11-17 05:16] LABS: Hypochromasia Slight; Platelet Estimate Normal
[2019-11-17 05:45] LABS: Osmolality,Calculated 280.5 MOS/KG (273-304)
[2019-11-17] MEDS: POTASSIUM CHLORIDE 20 MEQ/15 ML UDCUP PER TUBE PRN (06:15)
[2019-11-17] MEDS: ARFORMOTEROL 15 MCG/2 ML NEB RESP TX SCH ×2 (07:20→19:34)
[2019-11-17] MEDS: BUDESONIDE 0.5 MG/2 ML NEB RESP TX SCH ×2 (07:20→19:34)
[2019-11-17] MEDS: PANTOPRAZOLE 40 MG VIAL IV SCH (08:02)
[2019-11-17] MEDS: ARIPiprazole 10 MG TABLET PO SCH (08:05)
[2019-11-17] MEDS: QUEtiapine 100 MG TABLET PO SCH ×2 (08:06→21:09)
[2019-11-17] MEDS: buPROPion 75 MG TABLET PO SCH ×2 (08:06→21:09)
[2019-11-17] MEDS: BENZTROPINE 1 MG TABLET PO SCH ×2 (08:07→21:09)
[2019-11-17] MEDS: CHOLECALCIFEROL 5,000 UNIT TABLET PER TUBE SCH (08:07)
[2019-11-17] MEDS: NYSTATIN POWDER 15 GM BOTTLE TOP SCH ×3 (08:29→21:09)
[2019-11-17] MEDS: DESITIN 4OZ/NYSTATIN 15 GRAM MIXTURE PASTE TOP SCH ×2 (08:29→21:10)
[2019-11-17] MEDS: MENTHOL/ZINC OXIDE OINT 71 GM JAR TOP SCH (08:30)
[2019-11-17] MEDS: cefTRIAXone 2,000 MG in SYRINGE 1 EACH IV SCH (08:30)
[2019-11-17] MEDS: ZINC OXIDE PASTE 113 GM TUBE TOP SCH ×2 (08:30→21:09)
[2019-11-17] MEDS: DOCUSATE SODIUM 100 MG/10 ML UDCUP NG SCH ×2 (09:09→21:09)
[2019-11-17] MEDS: POTASSIUM CHLORIDE 20 MEQ/15 ML UDCUP PER TUBE SCH ×4 (09:34→21:09)
[2019-11-17] MEDS ORDERED: ALBUTEROL/IPRATROPIUM 3 ML NEB RESP TX ONE ×2 (22:46)
[2019-11-17] MEDS: NOREPINEPHRINE 8 MG in SODIUM CHLORIDE 0.9% 242 ML IV PRN (23:26)
[2019-11-18] MEDS: INSULIN LISPRO 100 UNIT/ML SUBCUT SCH ×4 (00:03→19:08)
[2019-11-18] MEDS: FUROSEMIDE 40 MG/4 ML VIAL IV SCH ×3 (01:15→19:02)
[2019-11-18] MEDS: ALBUTEROL/IPRATROPIUM 3 ML NEB RESP TX SCH ×5 (03:48→19:00)
[2019-11-18 04:04] LABS: ABG Base Excess 10.4 MMOL/L (-2.5-2.5); ABG HCO3 34.1 MMOL/L (20-26); ABG Oxygen Saturation 96.9 % (95-100); ABG PCO2 56.9 MM HG (35-48); ABG PH 7.418 (7.35-7.45); ABG PO2 83.4 MM HG (80-95); ABG TCO2 33.6 MMOL/L (23-27)
[2019-11-18 05:36] LABS: Basophils % 0.5 % (0.0-0.8); Eosinophils # 0.6 10*3/uL (0.0-0.87); Eosinophils % 8.1 % (0.00-10.9); Hematocrit 31.7 VOL% (35.7-47.0); Hemoglobin 9.4 GM/DL (12.0-16.0); Immature Granulocytes % 1.1 %; Immature Granulocytes Absolute 0.09 #; Lymphocytes # 2.4 10*3/uL (1.4-4.0); Mean Corpuscular HGB Conc 29.7 GM/DL (32-36); Mean Corpuscular Volume 93.8 FL (87-102); Mean Platelet Volume 9.5 FL (9.6-12.0); Monocytes % 5.1 % (1.7-12.7); NRBC # 0.02 10*3/uL; Neutrophils % 55.2 % (38.7-73.9); Platelet Count 211 T/CUMM (130-400); Red Blood Count 3.38 MC/CUMM (3.8-5.5); Red Cell Distribution Width 17.2 % (9.3-17.3); White Blood Count 7.9 T/CUMM (4-12)
[2019-11-18 05:56] LABS: Calcium 8.8 MG/DL (8.5-10.1); Hypochromasia 1+; Microcytosis 1+; Osmolality,Calculated 287.3 MOS/KG (273-304); Platelet Estimate Normal; Polychromasia Slight
[2019-11-18] MEDS: ARFORMOTEROL 15 MCG/2 ML NEB RESP TX SCH ×2 (07:23→19:00)
[2019-11-18] MEDS: BUDESONIDE 0.5 MG/2 ML NEB RESP TX SCH ×2 (07:23→19:00)
[2019-11-18] MEDS: buPROPion 75 MG TABLET PO SCH ×2 (09:56→21:56)
[2019-11-18] MEDS: BENZTROPINE 1 MG TABLET PO SCH ×2 (09:56→21:56)
[2019-11-18] MEDS: CHOLECALCIFEROL 5,000 UNIT TABLET PER TUBE SCH (09:56)
[2019-11-18] MEDS: ARIPiprazole 10 MG TABLET PO SCH (09:56)
[2019-11-18] MEDS: cefTRIAXone 2,000 MG in SYRINGE 1 EACH IV SCH (09:57)
[2019-11-18] MEDS: QUEtiapine 100 MG TABLET PO SCH ×2 (09:57→21:56)
[2019-11-18] MEDS: fentaNYL 50 MCG/HR PATCH TRANSDERM SCH (09:58)
[2019-11-18] MEDS: DOCUSATE SODIUM 100 MG/10 ML UDCUP NG SCH ×2 (09:58→21:56)
[2019-11-18] MEDS: ZINC OXIDE PASTE 113 GM TUBE TOP SCH ×2 (09:58→21:57)
[2019-11-18] MEDS: MENTHOL/ZINC OXIDE OINT 71 GM JAR TOP SCH (09:58)
[2019-11-18] MEDS: NYSTATIN POWDER 15 GM BOTTLE TOP SCH ×3 (09:59→21:57)
[2019-11-18] MEDS: PANTOPRAZOLE 40 MG VIAL IV SCH (09:59)
[2019-11-18] MEDS: DESITIN 4OZ/NYSTATIN 15 GRAM MIXTURE PASTE TOP SCH ×2 (10:00→21:57)
[2019-11-18] MEDS: POTASSIUM CHLORIDE 20 MEQ/15 ML UDCUP PER TUBE PRN ×3 (10:15→17:00)
[2019-11-18] MEDS: DEXMEDETOMIDINE 400 MCG in SODIUM CHLORIDE 0.9% 96 ML IV PRN ×3 (15:12→19:05)
[2019-11-19] MEDS: ALBUTEROL/IPRATROPIUM 3 ML NEB RESP TX SCH ×7 (00:06→23:09)
[2019-11-19] MEDS: INSULIN LISPRO 100 UNIT/ML SUBCUT SCH ×4 (00:26→17:30)
[2019-11-19] MEDS: FUROSEMIDE 40 MG/4 ML VIAL IV SCH ×3 (00:27→17:30)
[2019-11-19] MEDS: DEXMEDETOMIDINE 400 MCG in SODIUM CHLORIDE 0.9% 96 ML IV PRN ×3 (02:32→17:08)
[2019-11-19 04:41] LABS: ABG Base Excess 11.3 MMOL/L (-2.5-2.5); ABG Oxygen Saturation 97.7 % (95-100); ABG PCO2 56.3 MM HG (35-48); ABG PH 7.432 (7.35-7.45); ABG PO2 91.2 MM HG (80-95); ABG TCO2 34.1 MMOL/L (23-27); Allen Test Positive; Pt O2 Delivery Device Ventilator
[2019-11-19] MEDS: NOREPINEPHRINE 8 MG in SODIUM CHLORIDE 0.9% 242 ML IV PRN (05:06)
[2019-11-19 05:14] LABS: Basophils % 0.4 % (0.0-0.8); Eosinophils # 0.6 10*3/uL (0.0-0.87); Eosinophils % 6.8 % (0.00-10.9); Hematocrit 32.9 VOL% (35.7-47.0); Hemoglobin 9.9 GM/DL (12.0-16.0); Immature Granulocytes % 0.8 %; Immature Granulocytes Absolute 0.07 #; Lymphocytes # 2.3 10*3/uL (1.4-4.0); Lymphocytes % 26.8 % (21.3-54.2); Mean Corpuscular HGB Conc 30.1 GM/DL (32-36); Mean Corpuscular Volume 91.9 FL (87-102); Mean Platelet Volume 9.6 FL (9.6-12.0); Monocytes % 4.2 % (1.7-12.7); NRBC # 0.03 10*3/uL; Platelet Count 216 T/CUMM (130-400); Red Blood Count 3.58 MC/CUMM (3.8-5.5); Red Cell Distribution Width 17.1 % (9.3-17.3); White Blood Count 8.5 T/CUMM (4-12)
[2019-11-19 05:30] LABS: Calcium 9.4 MG/DL (8.5-10.1); Osmolality,Calculated 283.4 MOS/KG (273-304)
[2019-11-19] MEDS: POTASSIUM CHLORIDE 20 MEQ/15 ML UDCUP PER TUBE PRN ×6 (07:09→23:36)
[2019-11-19] MEDS: BUDESONIDE 0.5 MG/2 ML NEB RESP TX SCH ×2 (07:10→19:40)
[2019-11-19] MEDS: ARFORMOTEROL 15 MCG/2 ML NEB RESP TX SCH ×2 (07:10→19:40)
[2019-11-19] MEDS: buPROPion 75 MG TABLET PO SCH ×2 (08:30→20:40)
[2019-11-19] MEDS: ARIPiprazole 10 MG TABLET PO SCH (08:30)
[2019-11-19] MEDS: QUEtiapine 100 MG TABLET PO SCH ×2 (08:30→20:41)
[2019-11-19] MEDS: CHOLECALCIFEROL 5,000 UNIT TABLET PER TUBE SCH (08:30)
[2019-11-19] MEDS: DOCUSATE SODIUM 100 MG/10 ML UDCUP NG SCH ×2 (08:31→20:40)
[2019-11-19] MEDS: BENZTROPINE 1 MG TABLET PO SCH ×2 (08:31→20:41)
[2019-11-19] MEDS: DESITIN 4OZ/NYSTATIN 15 GRAM MIXTURE PASTE TOP SCH ×2 (08:32→20:43)
[2019-11-19] MEDS: MENTHOL/ZINC OXIDE OINT 71 GM JAR TOP SCH (08:32)
[2019-11-19] MEDS: ZINC OXIDE PASTE 113 GM TUBE TOP SCH ×2 (08:32→20:43)
[2019-11-19] MEDS: NYSTATIN POWDER 15 GM BOTTLE TOP SCH ×3 (08:32→20:43)
[2019-11-19] MEDS: PANTOPRAZOLE 40 MG VIAL IV SCH (08:37)
[2019-11-19] MEDS: LORazepam 2 MG/1 ML VIAL IV PRN ×2 (19:29→23:34)
[2019-11-19] MEDS: guaiFENesin/CODEINE 5 ML LIQUID PO PRN (20:40)
[2019-11-20] MEDS: INSULIN LISPRO 100 UNIT/ML SUBCUT SCH ×4 (00:18→19:03)
[2019-11-20] MEDS: FUROSEMIDE 40 MG/4 ML VIAL IV SCH ×3 (00:18→17:29)
[2019-11-20] MEDS: DEXMEDETOMIDINE 400 MCG in SODIUM CHLORIDE 0.9% 96 ML IV PRN ×3 (02:48→17:18)
[2019-11-20] MEDS: ALBUTEROL/IPRATROPIUM 3 ML NEB RESP TX SCH ×5 (03:08→18:53)
[2019-11-20 04:11] LABS: ABG HCO3 34.3 MMOL/L (20-26); ABG Oxygen Saturation 96.1 % (95-100); ABG PCO2 50.6 MM HG (35-48); ABG PH 7.449 (7.35-7.45); ABG PO2 87.8 MM HG (80-95); ABG TCO2 35.9 MMOL/L (23-27); Allen Test Positive; Pt O2 Delivery Device Ventilator
[2019-11-20 05:00] LABS: Calcium 9.8 MG/DL (8.5-10.1); Osmolality,Calculated 283.5 MOS/KG (273-304)
[2019-11-20 05:03] LABS: Basophils % 0.4 % (0.0-0.8); Eosinophils # 0.6 10*3/uL (0.0-0.87); Eosinophils % 6.1 % (0.00-10.9); Hematocrit 33.5 VOL% (35.7-47.0); Hemoglobin 9.9 GM/DL (12.0-16.0); Immature Granulocytes % 0.9 %; Immature Granulocytes Absolute 0.09 #; Lymphocytes # 3.1 10*3/uL (1.4-4.0); Lymphocytes % 30.6 % (21.3-54.2); Mean Corpuscular HGB Conc 29.6 GM/DL (32-36); Mean Corpuscular Volume 90.8 FL (87-102); Mean Platelet Volume 9.7 FL (9.6-12.0); Monocytes % 4.3 % (1.7-12.7); NRBC # 0.02 10*3/uL; Neutrophils % 57.7 % (38.7-73.9); Platelet Count 242 T/CUMM (130-400); Red Blood Count 3.69 MC/CUMM (3.8-5.5); Red Cell Distribution Width 17.1 % (9.3-17.3); White Blood Count 10.2 T/CUMM (4-12)
[2019-11-20 05:10] LABS: Hypochromasia 1+; Microcytosis Slight; Platelet Estimate Adequate
[2019-11-20] MEDS: POTASSIUM CHLORIDE 20 MEQ/15 ML UDCUP PER TUBE PRN (05:43)
[2019-11-20] MEDS: ARFORMOTEROL 15 MCG/2 ML NEB RESP TX SCH ×2 (07:57→18:53)
[2019-11-20] MEDS: BUDESONIDE 0.5 MG/2 ML NEB RESP TX SCH ×2 (07:57→18:53)
[2019-11-20] MEDS: buPROPion 75 MG TABLET PO SCH ×2 (08:36→22:30)
[2019-11-20] MEDS: CHOLECALCIFEROL 5,000 UNIT TABLET PER TUBE SCH (08:37)
[2019-11-20] MEDS: QUEtiapine 100 MG TABLET PO SCH ×2 (08:37→22:30)
[2019-11-20] MEDS: DOCUSATE SODIUM 100 MG/10 ML UDCUP NG SCH ×2 (08:37→22:30)
[2019-11-20] MEDS: ARIPiprazole 10 MG TABLET PO SCH (08:37)
[2019-11-20] MEDS: PANTOPRAZOLE 40 MG VIAL IV SCH (08:39)
[2019-11-20] MEDS: NYSTATIN POWDER 15 GM BOTTLE TOP SCH ×3 (09:12→22:30)
[2019-11-20] MEDS: MENTHOL/ZINC OXIDE OINT 71 GM JAR TOP SCH (09:12)
[2019-11-20] MEDS: ZINC OXIDE PASTE 113 GM TUBE TOP SCH ×2 (09:13→22:30)
[2019-11-20] MEDS: BENZTROPINE 1 MG TABLET PO SCH ×2 (09:18→22:30)
[2019-11-20] MEDS: DESITIN 4OZ/NYSTATIN 15 GRAM MIXTURE PASTE TOP SCH ×2 (09:19→22:30)
[2019-11-20] MEDS: NOREPINEPHRINE 8 MG in SODIUM CHLORIDE 0.9% 242 ML IV PRN (17:17)
[2019-11-21] MEDS: DEXMEDETOMIDINE 400 MCG in SODIUM CHLORIDE 0.9% 96 ML IV PRN ×4 (00:12→22:25)
[2019-11-21] MEDS: ALBUTEROL/IPRATROPIUM 3 ML NEB RESP TX SCH ×6 (00:24→19:08)
[2019-11-21] MEDS: INSULIN LISPRO 100 UNIT/ML SUBCUT SCH ×5 (00:55→23:51)
[2019-11-21 03:30] LABS: ABG Base Excess 7.2 MMOL/L (-2.5-2.5); ABG HCO3 30.9 MMOL/L (20-26); ABG Oxygen Saturation 94.3 % (95-100); ABG PCO2 47.6 MM HG (35-48); ABG PH 7.441 (7.35-7.45); ABG PO2 70.2 MM HG (80-95); ABG TCO2 29.5 MMOL/L (23-27); Allen Test Positive; Pt O2 Delivery Device Ventilator
[2019-11-21] MEDS: ONDANSETRON 4 MG/2 ML VIAL IV PRN (05:01)
[2019-11-21] MEDS: BUDESONIDE 0.5 MG/2 ML NEB RESP TX SCH ×2 (07:10→19:08)
[2019-11-21] MEDS: ARFORMOTEROL 15 MCG/2 ML NEB RESP TX SCH ×2 (07:10→19:08)
[2019-11-21] MEDS: ARIPiprazole 10 MG TABLET PO SCH (08:23)
[2019-11-21] MEDS: BENZTROPINE 1 MG TABLET PO SCH ×2 (08:24→21:28)
[2019-11-21] MEDS: MENTHOL/ZINC OXIDE OINT 71 GM JAR TOP SCH (08:24)
[2019-11-21] MEDS: ZINC OXIDE PASTE 113 GM TUBE TOP SCH ×2 (08:24→21:16)
[2019-11-21] MEDS: DESITIN 4OZ/NYSTATIN 15 GRAM MIXTURE PASTE TOP SCH ×2 (08:25→21:16)
[2019-11-21] MEDS: QUEtiapine 100 MG TABLET PO SCH ×2 (08:25→21:28)
[2019-11-21] MEDS: CHOLECALCIFEROL 5,000 UNIT TABLET PER TUBE SCH (08:25)
[2019-11-21] MEDS: NYSTATIN POWDER 15 GM BOTTLE TOP SCH ×3 (08:25→21:16)
[2019-11-21] MEDS: buPROPion 75 MG TABLET PO SCH ×2 (08:26→21:27)
[2019-11-21] MEDS: PANTOPRAZOLE 40 MG VIAL IV SCH (08:34)
[2019-11-21] MEDS: FUROSEMIDE 40 MG/4 ML VIAL IV SCH ×2 (08:37→16:28)
[2019-11-21] MEDS: fentaNYL 50 MCG/HR PATCH TRANSDERM SCH (08:38)
[2019-11-21] MEDS: LACTULOSE 20 GM/30 ML UDCUP PO PRN ×2 (08:38→21:32)
[2019-11-21] MEDS: POTASSIUM CHLORIDE 20 MEQ/15 ML UDCUP PER TUBE PRN (08:38)
[2019-11-21] MEDS: DOCUSATE SODIUM 100 MG/10 ML UDCUP NG SCH ×2 (08:39→21:27)
[2019-11-21] MEDS: METOCLOPRAMIDE 10 MG/2 ML VIAL IV SCH ×3 (10:38→21:34)
[2019-11-21] MEDS ORDERED: MAGNESIUM CITRATE 300 ML BOTTLE PO ONE (16:33)
[2019-11-21] MEDS ORDERED: SODIUM PHOSPHATE ENEMA 133 ML BOTTLE RECTAL ONE (18:53)
[2019-11-22] MEDS ORDERED: NOREPINEPHRINE 4 MG/4 ML VIAL IV ONE (00:16)
[2019-11-22] MEDS: NOREPINEPHRINE 8 MG in SODIUM CHLORIDE 0.9% 242 ML IV PRN (00:23)
[2019-11-22] MEDS: ALBUTEROL/IPRATROPIUM 3 ML NEB RESP TX SCH ×6 (00:46→19:54)
[2019-11-22 03:52] LABS: ABG Base Excess 7.3 MMOL/L (-2.5-2.5); ABG Oxygen Saturation 90.6 % (95-100); ABG PCO2 49.3 MM HG (35-48); ABG PO2 61.5 MM HG (80-95); ABG TCO2 30.1 MMOL/L (23-27)
[2019-11-22] MEDS: METOCLOPRAMIDE 10 MG/2 ML VIAL IV SCH ×4 (04:26→22:13)
[2019-11-22] MEDS: INSULIN LISPRO 100 UNIT/ML SUBCUT SCH ×3 (05:52→17:34)
[2019-11-22] MEDS: ARFORMOTEROL 15 MCG/2 ML NEB RESP TX SCH ×2 (07:34→19:54)
[2019-11-22] MEDS: BUDESONIDE 0.5 MG/2 ML NEB RESP TX SCH ×2 (07:34→19:54)
[2019-11-22] MEDS: DEXMEDETOMIDINE 400 MCG in SODIUM CHLORIDE 0.9% 96 ML IV PRN ×2 (08:09→17:18)
[2019-11-22] MEDS: PANTOPRAZOLE 40 MG VIAL IV SCH (09:35)
[2019-11-22] MEDS: DOCUSATE SODIUM 100 MG/10 ML UDCUP NG SCH ×2 (09:35→22:07)
[2019-11-22] MEDS: FUROSEMIDE 40 MG/4 ML VIAL IV SCH ×2 (09:35→16:00)
[2019-11-22] MEDS: ARIPiprazole 10 MG TABLET PO SCH (09:36)
[2019-11-22] MEDS: QUEtiapine 100 MG TABLET PO SCH ×2 (09:36→22:25)
[2019-11-22] MEDS: CHOLECALCIFEROL 5,000 UNIT TABLET PER TUBE SCH (09:36)
[2019-11-22] MEDS: BENZTROPINE 1 MG TABLET PO SCH ×2 (09:36→22:07)
[2019-11-22] MEDS: buPROPion 75 MG TABLET PO SCH ×2 (09:36→22:07)
[2019-11-22] MEDS: LACTULOSE 20 GM/30 ML UDCUP PO PRN (09:36)
[2019-11-22] MEDS: DESITIN 4OZ/NYSTATIN 15 GRAM MIXTURE PASTE TOP SCH ×2 (09:37→22:26)
[2019-11-22] MEDS: ZINC OXIDE PASTE 113 GM TUBE TOP SCH ×2 (09:38→22:25)
[2019-11-22] MEDS: NYSTATIN POWDER 15 GM BOTTLE TOP SCH ×3 (09:38→22:25)
[2019-11-22] MEDS: MENTHOL/ZINC OXIDE OINT 71 GM JAR TOP SCH (09:38)
[2019-11-22] MEDS: LORazepam 2 MG/1 ML VIAL IV PRN (23:52)
[2019-11-23] MEDS: INSULIN LISPRO 100 UNIT/ML SUBCUT SCH ×4 (00:21→17:03)
[2019-11-23] MEDS: ALBUTEROL/IPRATROPIUM 3 ML NEB RESP TX SCH ×6 (00:46→19:45)
[2019-11-23] MEDS: DEXMEDETOMIDINE 400 MCG in SODIUM CHLORIDE 0.9% 96 ML IV PRN ×3 (01:49→19:55)
[2019-11-23] MEDS: METOCLOPRAMIDE 10 MG/2 ML VIAL IV SCH ×4 (04:31→21:40)
[2019-11-23 04:38] LABS: Basophils % 0.2 % (0.0-0.8); Eosinophils # 0.2 10*3/uL (0.0-0.87); Eosinophils % 2.3 % (0.00-10.9); Hematocrit 29.7 VOL% (35.7-47.0); Hemoglobin 8.9 GM/DL (12.0-16.0); Immature Granulocytes % 0.9 %; Immature Granulocytes Absolute 0.09 #; Lymphocytes # 2.1 10*3/uL (1.4-4.0); Lymphocytes % 22.1 % (21.3-54.2); Mean Corpuscular Volume 92.5 FL (87-102); Mean Platelet Volume 9.5 FL (9.6-12.0); Monocytes % 6.4 % (1.7-12.7); NRBC # 0.03 10*3/uL; Neutrophils % 68.1 % (38.7-73.9); Platelet Count 260 T/CUMM (130-400); Red Blood Count 3.21 MC/CUMM (3.8-5.5); Red Cell Distribution Width 16.9 % (9.3-17.3); White Blood Count 9.5 T/CUMM (4-12)
[2019-11-23 04:52] LABS: ABG Base Excess 7.9 MMOL/L (-2.5-2.5); ABG HCO3 32.8 MMOL/L (20-26); ABG Oxygen Saturation 93.2 % (95-100); ABG PCO2 47.8 MM HG (35-48); ABG PH 7.454 (7.35-7.45); ABG PO2 69.6 MM HG (80-95); ABG TCO2 34.2 MMOL/L (23-27); Allen Test Positive; Pt O2 Delivery Device Ventilator
[2019-11-23 05:11] LABS: Osmolality,Calculated 290.1 MOS/KG (273-304)
[2019-11-23] MEDS ORDERED: NOREPINEPHRINE 4 MG/4 ML VIAL IV ONE (05:51)
[2019-11-23] MEDS ORDERED: POTASSIUM CHLORIDE 20 MEQ/15 ML UDCUP PER TUBE ONE (06:14)
[2019-11-23] MEDS: POTASSIUM CHLORIDE RIDER 20 MEQ in PREMIX 1 EACH IV PRN ×4 (06:43→21:26)
[2019-11-23] MEDS: BUDESONIDE 0.5 MG/2 ML NEB RESP TX SCH ×2 (07:50→19:45)
[2019-11-23] MEDS: ARFORMOTEROL 15 MCG/2 ML NEB RESP TX SCH ×2 (07:50→19:45)
[2019-11-23] MEDS: DOCUSATE SODIUM 100 MG/10 ML UDCUP NG SCH ×2 (10:56→20:43)
[2019-11-23] MEDS: QUEtiapine 100 MG TABLET PO SCH ×2 (10:56→20:43)
[2019-11-23] MEDS: CHOLECALCIFEROL 5,000 UNIT TABLET PER TUBE SCH (10:57)
[2019-11-23] MEDS: ARIPiprazole 10 MG TABLET PO SCH (10:57)
[2019-11-23] MEDS: buPROPion 75 MG TABLET PO SCH ×2 (10:57→20:43)
[2019-11-23] MEDS: BENZTROPINE 1 MG TABLET PO SCH ×2 (10:57→20:43)
[2019-11-23] MEDS: NYSTATIN POWDER 15 GM BOTTLE TOP SCH ×3 (10:59→20:43)
[2019-11-23] MEDS: ZINC OXIDE PASTE 113 GM TUBE TOP SCH ×2 (10:59→20:44)
[2019-11-23] MEDS: MENTHOL/ZINC OXIDE OINT 71 GM JAR TOP SCH (10:59)
[2019-11-23] MEDS: DESITIN 4OZ/NYSTATIN 15 GRAM MIXTURE PASTE TOP SCH ×2 (10:59→20:43)
[2019-11-23] MEDS: PANTOPRAZOLE 40 MG VIAL IV SCH (11:00)
[2019-11-23] MEDS: FUROSEMIDE 40 MG/4 ML VIAL IV SCH ×2 (11:01→17:03)
[2019-11-23] MEDS: LORazepam 2 MG/1 ML VIAL IV PRN ×2 (15:04→20:40)
[2019-11-23] MEDS: HALOPERIDOL 5 MG/ML AMP IM PRN (23:00)
[2019-11-24] MEDS: ALBUTEROL/IPRATROPIUM 3 ML NEB RESP TX SCH ×7 (00:06→22:58)
[2019-11-24] MEDS ORDERED: POTASSIUM CHLORIDE RIDER 100 ML IV ONE (00:34)
[2019-11-24] MEDS: ACETAMINOPHEN 325 MG TABLET PO PRN (01:03)
[2019-11-24] MEDS: INSULIN LISPRO 100 UNIT/ML SUBCUT SCH ×4 (01:14→18:19)
[2019-11-24] MEDS: LORazepam 2 MG/1 ML VIAL IV PRN ×3 (01:29→18:17)
[2019-11-24] MEDS: DEXMEDETOMIDINE 400 MCG in SODIUM CHLORIDE 0.9% 96 ML IV PRN ×3 (04:12→18:00)
[2019-11-24] MEDS: METOCLOPRAMIDE 10 MG/2 ML VIAL IV SCH ×4 (04:13→21:03)
[2019-11-24 04:43] LABS: ABG HCO3 29.8 MMOL/L (20-26); ABG Oxygen Saturation 94.3 % (95-100); ABG PH 7.451 (7.35-7.45); ABG PO2 69.4 MM HG (80-95); ABG TCO2 28.3 MMOL/L (23-27); Allen Test Positive; Pt O2 Delivery Device Ventilator
[2019-11-24] MEDS: BUDESONIDE 0.5 MG/2 ML NEB RESP TX SCH ×2 (07:26→19:10)
[2019-11-24] MEDS: ARFORMOTEROL 15 MCG/2 ML NEB RESP TX SCH ×2 (07:26→19:10)
[2019-11-24 08:51] LABS: Osmolality,Calculated 282.4 MOS/KG (273-304)
[2019-11-24] MEDS: FUROSEMIDE 40 MG/4 ML VIAL IV SCH ×2 (09:10→18:00)
[2019-11-24] MEDS: PANTOPRAZOLE 40 MG VIAL IV SCH (09:10)
[2019-11-24] MEDS: POTASSIUM CHLORIDE 20 MEQ/15 ML UDCUP PER TUBE PRN ×2 (09:54→11:44)
[2019-11-24] MEDS: ARIPiprazole 10 MG TABLET PO SCH (09:55)
[2019-11-24] MEDS: DOCUSATE SODIUM 100 MG/10 ML UDCUP NG SCH ×2 (09:55→21:01)
[2019-11-24] MEDS: LACTULOSE 20 GM/30 ML UDCUP PO PRN (09:55)
[2019-11-24] MEDS: QUEtiapine 100 MG TABLET PO SCH ×2 (09:56→21:01)
[2019-11-24] MEDS: BENZTROPINE 1 MG TABLET PO SCH ×2 (09:56→21:01)
[2019-11-24] MEDS: CHOLECALCIFEROL 5,000 UNIT TABLET PER TUBE SCH (09:56)
[2019-11-24] MEDS: DESITIN 4OZ/NYSTATIN 15 GRAM MIXTURE PASTE TOP SCH ×2 (09:59→22:06)
[2019-11-24] MEDS: MENTHOL/ZINC OXIDE OINT 71 GM JAR TOP SCH (09:59)
[2019-11-24] MEDS: ZINC OXIDE PASTE 113 GM TUBE TOP SCH ×2 (09:59→21:02)
[2019-11-24] MEDS: NYSTATIN POWDER 15 GM BOTTLE TOP SCH ×3 (09:59→21:02)
[2019-11-24] MEDS: buPROPion 75 MG TABLET PO SCH ×2 (09:59→21:01)
[2019-11-24] MEDS: fentaNYL 50 MCG/HR PATCH TRANSDERM SCH (10:30)
[2019-11-24] MEDS: ONDANSETRON 4 MG/2 ML VIAL IV PRN (17:00)
[2019-11-25] MEDS: DEXMEDETOMIDINE 400 MCG in SODIUM CHLORIDE 0.9% 96 ML IV PRN ×4 (00:01→22:00)
[2019-11-25] MEDS: INSULIN LISPRO 100 UNIT/ML SUBCUT SCH ×4 (00:53→18:05)
[2019-11-25] MEDS: ALBUTEROL/IPRATROPIUM 3 ML NEB RESP TX SCH ×6 (02:55→23:59)
[2019-11-25 04:49] LABS: ABG Base Excess 4.3 MMOL/L (-2.5-2.5); ABG HCO3 29.1 MMOL/L (20-26); ABG PCO2 44.6 MM HG (35-48); ABG PH 7.432 (7.35-7.45); ABG PO2 65.2 MM HG (80-95); ABG TCO2 30.4 MMOL/L (23-27); Allen Test Positive; Pt O2 Delivery Device Ventilator
[2019-11-25] MEDS: METOCLOPRAMIDE 10 MG/2 ML VIAL IV SCH ×4 (05:09→22:16)
[2019-11-25 06:06] LABS: Osmolality,Calculated 283.4 MOS/KG (273-304)
[2019-11-25] MEDS: POTASSIUM CHLORIDE RIDER 20 MEQ in PREMIX 1 EACH IV PRN (06:21)
[2019-11-25] MEDS: ARFORMOTEROL 15 MCG/2 ML NEB RESP TX SCH ×2 (07:20→19:45)
[2019-11-25] MEDS: BUDESONIDE 0.5 MG/2 ML NEB RESP TX SCH ×2 (07:20→19:45)
[2019-11-25] MEDS: LORazepam 2 MG/1 ML VIAL IV PRN ×2 (08:17→11:31)
[2019-11-25] MEDS: PANTOPRAZOLE 40 MG VIAL IV SCH (08:45)
[2019-11-25] MEDS: CHOLECALCIFEROL 5,000 UNIT TABLET PER TUBE SCH (08:49)
[2019-11-25] MEDS: BENZTROPINE 1 MG TABLET PO SCH ×2 (08:49→20:36)
[2019-11-25] MEDS: DOCUSATE SODIUM 100 MG/10 ML UDCUP NG SCH ×2 (08:49→20:36)
[2019-11-25] MEDS: buPROPion 75 MG TABLET PO SCH ×2 (08:50→20:36)
[2019-11-25] MEDS: POTASSIUM CHLORIDE 20 MEQ/15 ML UDCUP PER TUBE SCH (08:50)
[2019-11-25] MEDS: QUEtiapine 100 MG TABLET PO SCH ×2 (08:51→20:53)
[2019-11-25] MEDS: ZINC OXIDE PASTE 113 GM TUBE TOP SCH ×2 (08:51→20:37)
[2019-11-25] MEDS: FUROSEMIDE 40 MG/4 ML VIAL IV SCH ×2 (08:52→16:50)
[2019-11-25] MEDS: NYSTATIN POWDER 15 GM BOTTLE TOP SCH ×3 (08:52→20:37)
[2019-11-25] MEDS: DESITIN 4OZ/NYSTATIN 15 GRAM MIXTURE PASTE TOP SCH ×2 (08:52→22:15)
[2019-11-25] MEDS: ARIPiprazole 10 MG TABLET PO SCH (08:56)
[2019-11-25] MEDS: MENTHOL/ZINC OXIDE OINT 71 GM JAR TOP SCH (09:40)
[2019-11-25] MEDS ORDERED: LIDOCAINE 2% 20 ML VIAL RESP TX PRN (12:16)
[2019-11-25] MEDS: guaiFENesin 200 MG/10 ML UDCUP PO PRN (12:32)
[2019-11-25] MEDS ORDERED: MEPERIDINE 50 MG/1 ML VIAL IM ONE (13:28)
[2019-11-25] MEDS ORDERED: MEPERIDINE 50 MG/1 ML VIAL IM SCH (13:30)
[2019-11-25] MEDS: MEPERIDINE 50 MG/1 ML VIAL IM PRN (21:01)
[2019-11-25] MEDS: FAMOTIDINE 8 MG/ML 50 ML/BOTTLE PO SCH (22:15)
[2019-11-26] MEDS: INSULIN LISPRO 100 UNIT/ML SUBCUT SCH ×5 (01:20→23:26)
[2019-11-26] MEDS: ALBUTEROL/IPRATROPIUM 3 ML NEB RESP TX SCH ×6 (03:44→23:40)
[2019-11-26] MEDS: METOCLOPRAMIDE 10 MG/2 ML VIAL IV SCH ×4 (05:21→22:38)
[2019-11-26] MEDS: DEXMEDETOMIDINE 400 MCG in SODIUM CHLORIDE 0.9% 96 ML IV PRN (06:19)
[2019-11-26] MEDS: ARFORMOTEROL 15 MCG/2 ML NEB RESP TX SCH ×2 (07:05→19:33)
[2019-11-26] MEDS: BUDESONIDE 0.5 MG/2 ML NEB RESP TX SCH ×2 (07:05→19:33)
[2019-11-26] MEDS: FUROSEMIDE 40 MG/4 ML VIAL IV SCH ×2 (08:17→16:50)
[2019-11-26] MEDS: POTASSIUM CHLORIDE 20 MEQ/15 ML UDCUP PER TUBE SCH (08:20)
[2019-11-26] MEDS: DOCUSATE SODIUM 100 MG/10 ML UDCUP NG SCH ×2 (08:20→21:00)
[2019-11-26] MEDS: ARIPiprazole 10 MG TABLET PO SCH (08:21)
[2019-11-26] MEDS: BENZTROPINE 1 MG TABLET PO SCH ×2 (08:21→21:00)
[2019-11-26] MEDS: CHOLECALCIFEROL 5,000 UNIT TABLET PER TUBE SCH (08:21)
[2019-11-26] MEDS: buPROPion 75 MG TABLET PO SCH ×2 (08:21→21:00)
[2019-11-26] MEDS: QUEtiapine 100 MG TABLET PO SCH ×2 (08:21→21:00)
[2019-11-26] MEDS: NYSTATIN POWDER 15 GM BOTTLE TOP SCH ×3 (08:40→21:13)
[2019-11-26] MEDS: ZINC OXIDE PASTE 113 GM TUBE TOP SCH ×2 (08:40→21:13)
[2019-11-26] MEDS: DESITIN 4OZ/NYSTATIN 15 GRAM MIXTURE PASTE TOP SCH ×2 (08:40→21:13)
[2019-11-26] MEDS: FAMOTIDINE 8 MG/ML 50 ML/BOTTLE PO SCH ×2 (08:49→21:12)
[2019-11-26] MEDS: MENTHOL/ZINC OXIDE OINT 71 GM JAR TOP SCH (09:58)
[2019-11-26] MEDS: MEPERIDINE 50 MG/1 ML VIAL IM PRN ×2 (11:43→17:06)
[2019-11-26] MEDS: guaiFENesin 200 MG/10 ML UDCUP PO PRN ×2 (11:46→15:30)
[2019-11-26] MEDS ORDERED: MEPERIDINE 50 MG/1 ML VIAL IM ONE (19:18)
[2019-11-27] MEDS: guaiFENesin 200 MG/10 ML UDCUP PO PRN (02:31)
[2019-11-27] MEDS: ALBUTEROL/IPRATROPIUM 3 ML NEB RESP TX SCH ×6 (03:35→22:59)
[2019-11-27 04:14] LABS: Basophils % 0.2 % (0.0-0.8); Eosinophils # 0.3 10*3/uL (0.0-0.87); Eosinophils % 1.6 % (0.00-10.9); Hematocrit 27.6 VOL% (35.7-47.0); Hemoglobin 8.6 GM/DL (12.0-16.0); Immature Granulocytes % 0.5 %; Immature Granulocytes Absolute 0.08 #; Lymphocytes # 1.5 10*3/uL (1.4-4.0); Mean Corpuscular HGB Conc 31.2 GM/DL (32-36); Mean Corpuscular Volume 90.8 FL (87-102); Mean Platelet Volume 9.7 FL (9.6-12.0); Monocytes % 3.8 % (1.7-12.7); Neutrophils % 84.9 % (38.7-73.9); Platelet Count 246 T/CUMM (130-400); Red Blood Count 3.04 MC/CUMM (3.8-5.5); Red Cell Distribution Width 16.5 % (9.3-17.3); White Blood Count 17.1 T/CUMM (4-12)
[2019-11-27 04:15] LABS: ABG Base Excess 4.8 MMOL/L (-2.5-2.5); ABG HCO3 28.7 MMOL/L (20-26); ABG Oxygen Saturation 99.9 % (95-100); ABG PH 7.428 (7.35-7.45); ABG TCO2 27.2 MMOL/L (23-27)
[2019-11-27 04:16] LABS: Calcium 8.9 MG/DL (8.5-10.1); Osmolality,Calculated 291.1 MOS/KG (273-304)
[2019-11-27] MEDS: MEPERIDINE 50 MG/1 ML VIAL IM PRN ×2 (04:39→16:22)
[2019-11-27] MEDS: METOCLOPRAMIDE 10 MG/2 ML VIAL IV SCH ×4 (05:13→23:15)
[2019-11-27] MEDS: POTASSIUM CHLORIDE RIDER 20 MEQ in PREMIX 1 EACH IV PRN (05:14)
[2019-11-27] MEDS: INSULIN LISPRO 100 UNIT/ML SUBCUT SCH ×4 (05:39→23:54)
[2019-11-27] MEDS: ARFORMOTEROL 15 MCG/2 ML NEB RESP TX SCH ×2 (07:57→19:18)
[2019-11-27] MEDS: BUDESONIDE 0.5 MG/2 ML NEB RESP TX SCH ×2 (08:04→19:18)
[2019-11-27] MEDS: FUROSEMIDE 40 MG/4 ML VIAL IV SCH (09:20)
[2019-11-27] MEDS: POTASSIUM CHLORIDE 20 MEQ/15 ML UDCUP PER TUBE SCH ×5 (09:22→20:32)
[2019-11-27] MEDS: QUEtiapine 100 MG TABLET PO SCH ×2 (09:26→20:32)
[2019-11-27] MEDS: BENZTROPINE 1 MG TABLET PO SCH ×2 (09:26→20:32)
[2019-11-27] MEDS: buPROPion 75 MG TABLET PO SCH ×2 (09:26→20:31)
[2019-11-27] MEDS: CHOLECALCIFEROL 5,000 UNIT TABLET PER TUBE SCH (09:26)
[2019-11-27] MEDS: ARIPiprazole 10 MG TABLET PO SCH (09:26)
[2019-11-27] MEDS: FAMOTIDINE 8 MG/ML 50 ML/BOTTLE PO SCH ×2 (09:27→20:32)
[2019-11-27] MEDS: NYSTATIN POWDER 15 GM BOTTLE TOP SCH ×3 (09:28→20:33)
[2019-11-27] MEDS: ZINC OXIDE PASTE 113 GM TUBE TOP SCH ×2 (09:29→20:32)
[2019-11-27] MEDS: DESITIN 4OZ/NYSTATIN 15 GRAM MIXTURE PASTE TOP SCH ×2 (09:29→20:33)
[2019-11-27] MEDS: MENTHOL/ZINC OXIDE OINT 71 GM JAR TOP SCH (09:29)
[2019-11-27] MEDS: DOCUSATE SODIUM 100 MG/10 ML UDCUP NG SCH ×2 (09:29→20:32)
[2019-11-27] MEDS: HALOPERIDOL 5 MG/ML AMP IM PRN (09:41)
[2019-11-27] MEDS: fentaNYL 50 MCG/HR PATCH TRANSDERM SCH (10:27)
[2019-11-27] MEDS ORDERED: TUBERCULIN SKIN TEST 0.1 ML SYRINGE INTRADERM ONE (10:35)
[2019-11-27] MEDS: ACETAMINOPHEN 325 MG TABLET PO PRN (16:18)
[2019-11-28] MEDS: POTASSIUM CHLORIDE 20 MEQ/15 ML UDCUP PER TUBE SCH ×2 (00:54→09:35)
[2019-11-28] MEDS: HALOPERIDOL 5 MG/ML AMP IM PRN ×2 (01:39→23:02)
[2019-11-28] MEDS: ALBUTEROL/IPRATROPIUM 3 ML NEB RESP TX SCH ×6 (03:27→23:04)
[2019-11-28] MEDS: MEPERIDINE 50 MG/1 ML VIAL IM PRN (03:52)
[2019-11-28 04:08] LABS: Basophils % 0.2 % (0.0-0.8); Eosinophils # 0.7 10*3/uL (0.0-0.87); Eosinophils % 4.4 % (0.00-10.9); Hematocrit 30.5 VOL% (35.7-47.0); Hemoglobin 9.1 GM/DL (12.0-16.0); Immature Granulocytes % 0.6 %; Lymphocytes % 18.1 % (21.3-54.2); Mean Corpuscular HGB Conc 29.8 GM/DL (32-36); Mean Corpuscular Volume 92.4 FL (87-102); Mean Platelet Volume 9.7 FL (9.6-12.0); Monocytes % 5.1 % (1.7-12.7); NRBC # 0.03 10*3/uL; Neutrophils % 71.6 % (38.7-73.9); Platelet Count 273 T/CUMM (130-400); White Blood Count 16.4 T/CUMM (4-12)
[2019-11-28 04:29] LABS: Calcium 9.7 MG/DL (8.5-10.1); Osmolality,Calculated 291.1 MOS/KG (273-304)
[2019-11-28] MEDS: METOCLOPRAMIDE 10 MG/2 ML VIAL IV SCH ×4 (05:05→22:12)
[2019-11-28] MEDS: INSULIN LISPRO 100 UNIT/ML SUBCUT SCH ×3 (05:59→17:39)
[2019-11-28] MEDS: ARFORMOTEROL 15 MCG/2 ML NEB RESP TX SCH ×2 (07:48→19:14)
[2019-11-28] MEDS: BUDESONIDE 0.5 MG/2 ML NEB RESP TX SCH ×2 (07:48→19:14)
[2019-11-28] MEDS: buPROPion 75 MG TABLET PO SCH ×2 (09:34→20:17)
[2019-11-28] MEDS: DOCUSATE SODIUM 100 MG/10 ML UDCUP NG SCH ×2 (09:34→20:17)
[2019-11-28] MEDS: QUEtiapine 100 MG TABLET PO SCH ×2 (09:34→20:17)
[2019-11-28] MEDS: BENZTROPINE 1 MG TABLET PO SCH ×2 (09:34→20:17)
[2019-11-28] MEDS: CHOLECALCIFEROL 5,000 UNIT TABLET PER TUBE SCH (09:35)
[2019-11-28] MEDS: predniSONE 20 MG TABLET PO SCH (09:35)
[2019-11-28] MEDS: ARIPiprazole 10 MG TABLET PO SCH (09:35)
[2019-11-28] MEDS: ZINC OXIDE PASTE 113 GM TUBE TOP SCH ×2 (09:36→20:18)
[2019-11-28] MEDS: NYSTATIN POWDER 15 GM BOTTLE TOP SCH ×3 (09:36→20:18)
[2019-11-28] MEDS: DESITIN 4OZ/NYSTATIN 15 GRAM MIXTURE PASTE TOP SCH ×2 (09:37→20:18)
[2019-11-28] MEDS: FAMOTIDINE 8 MG/ML 50 ML/BOTTLE PO SCH ×2 (09:37→20:17)
[2019-11-28] MEDS: MENTHOL/ZINC OXIDE OINT 71 GM JAR TOP SCH (09:47)
[2019-11-28] MEDS: FUROSEMIDE 40 MG/5 ML UDCUP PO SCH ×2 (10:14→17:39)
[2019-11-28] MEDS: ACETAMINOPHEN 325 MG TABLET PO PRN (17:39)
[2019-11-29] MEDS: INSULIN LISPRO 100 UNIT/ML SUBCUT SCH ×5 (01:55→23:46)
[2019-11-29] MEDS: ALBUTEROL/IPRATROPIUM 3 ML NEB RESP TX SCH ×6 (04:45→23:55)
[2019-11-29 04:54] LABS: Basophils % 0.3 % (0.0-0.8); Eosinophils # 0.2 10*3/uL (0.0-0.87); Hematocrit 30.1 VOL% (35.7-47.0); Immature Granulocytes % 1.3 %; Lymphocytes # 2.8 10*3/uL (1.4-4.0); Lymphocytes % 17.2 % (21.3-54.2); Mean Corpuscular HGB Conc 29.9 GM/DL (32-36); Monocytes % 5.9 % (1.7-12.7); NRBC # 0.05 10*3/uL; Neutrophils % 74.3 % (38.7-73.9); Platelet Count 287 T/CUMM (130-400); Red Blood Count 3.27 MC/CUMM (3.8-5.5); Red Cell Distribution Width 16.6 % (9.3-17.3)
[2019-11-29] MEDS: METOCLOPRAMIDE 10 MG/2 ML VIAL IV SCH ×4 (05:06→22:17)
[2019-11-29 05:17] LABS: Calcium 9.1 MG/DL (8.5-10.1)
[2019-11-29] MEDS: ARFORMOTEROL 15 MCG/2 ML NEB RESP TX SCH ×2 (07:20→19:25)
[2019-11-29] MEDS: BUDESONIDE 0.5 MG/2 ML NEB RESP TX SCH ×2 (07:35→19:25)
[2019-11-29] MEDS: POTASSIUM CHLORIDE 20 MEQ/15 ML UDCUP PER TUBE SCH (08:31)
[2019-11-29] MEDS: FUROSEMIDE 40 MG/5 ML UDCUP PO SCH ×2 (08:31→17:04)
[2019-11-29] MEDS: DOCUSATE SODIUM 100 MG/10 ML UDCUP NG SCH ×2 (08:31→20:27)
[2019-11-29] MEDS: ARIPiprazole 10 MG TABLET PO SCH (08:32)
[2019-11-29] MEDS: CHOLECALCIFEROL 5,000 UNIT TABLET PER TUBE SCH (08:32)
[2019-11-29] MEDS: BENZTROPINE 1 MG TABLET PO SCH ×2 (08:32→20:28)
[2019-11-29] MEDS: buPROPion 75 MG TABLET PO SCH ×2 (08:32→20:27)
[2019-11-29] MEDS: predniSONE 20 MG TABLET PO SCH (08:32)
[2019-11-29] MEDS: FAMOTIDINE 8 MG/ML 50 ML/BOTTLE PO SCH ×2 (08:33→20:27)
[2019-11-29] MEDS: QUEtiapine 100 MG TABLET PO SCH ×2 (08:33→20:27)
[2019-11-29] MEDS: DESITIN 4OZ/NYSTATIN 15 GRAM MIXTURE PASTE TOP SCH ×2 (08:33→20:28)
[2019-11-29] MEDS: ZINC OXIDE PASTE 113 GM TUBE TOP SCH ×2 (08:34→20:28)
[2019-11-29] MEDS: NYSTATIN POWDER 15 GM BOTTLE TOP SCH ×3 (08:34→20:28)
[2019-11-29] MEDS: MENTHOL/ZINC OXIDE OINT 71 GM JAR TOP SCH (09:37)
[2019-11-29] MEDS: MEPERIDINE 50 MG/1 ML VIAL IM PRN (23:45)
[2019-11-30] MEDS: ALBUTEROL/IPRATROPIUM 3 ML NEB RESP TX SCH ×6 (03:50→23:36)
[2019-11-30 04:06] LABS: Basophils # 0.1 10*3/uL (0.0-0.2); Basophils % 0.4 % (0.0-0.8); Eosinophils # 0.2 10*3/uL (0.0-0.87); Eosinophils % 1.1 % (0.00-10.9); Hematocrit 32.5 VOL% (35.7-47.0); Hemoglobin 9.9 GM/DL (12.0-16.0); Immature Granulocytes % 2.6 %; Lymphocytes # 3.2 10*3/uL (1.4-4.0); Mean Corpuscular HGB Conc 30.5 GM/DL (32-36); Mean Platelet Volume 9.6 FL (9.6-12.0); Monocytes % 5.7 % (1.7-12.7); NRBC # 0.09 10*3/uL; Neutrophils % 69.2 % (38.7-73.9); Platelet Count 289 T/CUMM (130-400); Red Blood Count 3.57 MC/CUMM (3.8-5.5); Red Cell Distribution Width 16.4 % (9.3-17.3); White Blood Count 15.2 T/CUMM (4-12)
[2019-11-30 04:07] LABS: Calcium 9.7 MG/DL (8.5-10.1); Osmolality,Calculated 287.3 MOS/KG (273-304)
[2019-11-30 04:16] LABS: Allen Test Positive
[2019-11-30 04:17] LABS: ABG Base Excess 7.8 MMOL/L (-2.5-2.5); ABG HCO3 32.5 MMOL/L (20-26); ABG Oxygen Saturation 98.1 % (95-100); ABG PCO2 46.3 MM HG (35-48); ABG PH 7.464 (7.35-7.45); ABG PO2 107.2 MM HG (80-95); ABG TCO2 33.9 MMOL/L (23-27)
[2019-11-30] MEDS: METOCLOPRAMIDE 10 MG/2 ML VIAL IV SCH ×2 (04:57→09:11)
[2019-11-30] MEDS: INSULIN LISPRO 100 UNIT/ML SUBCUT SCH ×4 (05:04→23:51)
[2019-11-30] MEDS: POTASSIUM CHLORIDE RIDER 20 MEQ in PREMIX 1 EACH IV PRN (05:46)
[2019-11-30] MEDS: BUDESONIDE 0.5 MG/2 ML NEB RESP TX SCH ×2 (06:51→18:47)
[2019-11-30] MEDS: ARFORMOTEROL 15 MCG/2 ML NEB RESP TX SCH ×2 (06:51→18:47)
[2019-11-30] MEDS: DOCUSATE SODIUM 100 MG/10 ML UDCUP NG SCH ×2 (08:54→21:14)
[2019-11-30] MEDS: FUROSEMIDE 40 MG/5 ML UDCUP PO SCH ×2 (08:54→15:49)
[2019-11-30] MEDS: POTASSIUM CHLORIDE 20 MEQ/15 ML UDCUP PER TUBE SCH ×4 (08:54→15:49)
[2019-11-30] MEDS: ARIPiprazole 10 MG TABLET PO SCH (08:55)
[2019-11-30] MEDS: predniSONE 20 MG TABLET PO SCH (08:55)
[2019-11-30] MEDS: BENZTROPINE 1 MG TABLET PO SCH ×2 (08:55→21:16)
[2019-11-30] MEDS: CHOLECALCIFEROL 5,000 UNIT TABLET PER TUBE SCH (09:03)
[2019-11-30] MEDS: fentaNYL 50 MCG/HR PATCH TRANSDERM SCH (09:04)
[2019-11-30] MEDS: NYSTATIN POWDER 15 GM BOTTLE TOP SCH ×3 (09:05→21:16)
[2019-11-30] MEDS: FAMOTIDINE 8 MG/ML 50 ML/BOTTLE PO SCH ×2 (09:06→21:16)
[2019-11-30] MEDS: ZINC OXIDE PASTE 113 GM TUBE TOP SCH ×2 (09:06→21:16)
[2019-11-30] MEDS: buPROPion 75 MG TABLET PO SCH ×2 (09:11→21:15)
[2019-11-30] MEDS: QUEtiapine 100 MG TABLET PO SCH ×2 (09:11→21:15)
[2019-11-30] MEDS: MENTHOL/ZINC OXIDE OINT 71 GM JAR TOP SCH (10:35)
[2019-11-30] MEDS: DESITIN 4OZ/NYSTATIN 15 GRAM MIXTURE PASTE TOP SCH ×2 (10:35→21:16)
[2019-11-30] MEDS: METOCLOPRAMIDE 5 MG TABLET PEG SCH ×3 (12:00→23:52)
[2019-11-30] MEDS ORDERED: METOCLOPRAMIDE 5 MG TABLET PO SCH (12:00)
[2019-12-01] MEDS: ALBUTEROL/IPRATROPIUM 3 ML NEB RESP TX SCH ×6 (03:50→23:12)
[2019-12-01 03:57] LABS: Basophils % 0.2 % (0.0-0.8); Eosinophils # 0.1 10*3/uL (0.0-0.87); Eosinophils % 0.4 % (0.00-10.9); Hematocrit 32.4 VOL% (35.7-47.0); Hemoglobin 9.7 GM/DL (12.0-16.0); Immature Granulocytes % 3.5 %; Immature Granulocytes Absolute 0.57 #; Lymphocytes # 3.3 10*3/uL (1.4-4.0); Lymphocytes % 20.2 % (21.3-54.2); Mean Corpuscular HGB Conc 29.9 GM/DL (32-36); Mean Corpuscular Volume 90.5 FL (87-102); Mean Platelet Volume 9.8 FL (9.6-12.0); Monocytes % 7.4 % (1.7-12.7); NRBC # 0.15 10*3/uL; Neutrophils % 68.3 % (38.7-73.9); Platelet Count 302 T/CUMM (130-400); Red Blood Count 3.58 MC/CUMM (3.8-5.5); Red Cell Distribution Width 16.4 % (9.3-17.3); White Blood Count 16.3 T/CUMM (4-12)
[2019-12-01 04:12] LABS: Calcium 9.6 MG/DL (8.5-10.1); Osmolality,Calculated 289.4 MOS/KG (273-304)
[2019-12-01 04:39] LABS: Eosinophils 1 % (0-10); Lymphocytes 21 % (20-55); Metamyelocytes 1 %; Segmented Neutrophils 71 % (50-85); Total Cells Counted 100
[2019-12-01 04:40] LABS: Hypochromasia 2+
[2019-12-01 04:41] LABS: Microcytosis 1+; Platelet Estimate Normal; Polychromasia Few
[2019-12-01] MEDS: INSULIN LISPRO 100 UNIT/ML SUBCUT SCH ×3 (05:51→18:24)
[2019-12-01] MEDS: METOCLOPRAMIDE 5 MG TABLET PEG SCH ×3 (06:12→18:47)
[2019-12-01] MEDS: BUDESONIDE 0.5 MG/2 ML NEB RESP TX SCH ×2 (06:52→19:10)
[2019-12-01] MEDS: ARFORMOTEROL 15 MCG/2 ML NEB RESP TX SCH ×2 (06:52→19:10)
[2019-12-01] MEDS: FUROSEMIDE 40 MG/5 ML UDCUP PO SCH ×2 (07:49→16:04)
[2019-12-01] MEDS: POTASSIUM CHLORIDE 20 MEQ/15 ML UDCUP PER TUBE PRN ×3 (07:49→13:07)
[2019-12-01] MEDS: ARIPiprazole 10 MG TABLET PO SCH (09:16)
[2019-12-01] MEDS: predniSONE 20 MG TABLET PO SCH (09:17)
[2019-12-01] MEDS: buPROPion 75 MG TABLET PO SCH ×2 (09:17→21:16)
[2019-12-01] MEDS: QUEtiapine 100 MG TABLET PO SCH ×2 (09:17→21:16)
[2019-12-01] MEDS: CHOLECALCIFEROL 5,000 UNIT TABLET PER TUBE SCH (09:17)
[2019-12-01] MEDS: BENZTROPINE 1 MG TABLET PO SCH ×2 (09:17→21:16)
[2019-12-01] MEDS: DOCUSATE SODIUM 100 MG/10 ML UDCUP NG SCH ×2 (09:18→21:16)
[2019-12-01] MEDS: ZINC OXIDE PASTE 113 GM TUBE TOP SCH ×2 (09:18→21:16)
[2019-12-01] MEDS: NYSTATIN POWDER 15 GM BOTTLE TOP SCH ×3 (09:18→21:16)
[2019-12-01] MEDS: MENTHOL/ZINC OXIDE OINT 71 GM JAR TOP SCH (09:19)
[2019-12-01] MEDS: FAMOTIDINE 8 MG/ML 50 ML/BOTTLE PO SCH ×2 (09:19→21:17)
[2019-12-01] MEDS: DESITIN 4OZ/NYSTATIN 15 GRAM MIXTURE PASTE TOP SCH ×2 (09:19→21:17)
[2019-12-01] MEDS: POTASSIUM CHLORIDE 20 MEQ/15 ML UDCUP PER TUBE SCH ×2 (09:20→21:16)
[2019-12-01 14:19] LABS: Bilirubin,Urine Negative (Negative); Blood, Urine Negative (Negative); Glucose,Urine (UA) Negative (Negative); Ketones,Urine Negative (Negative); Nitrite,Urine Negative (Negative); Protein,Urine Negative; RBC,Urine 3 /HPF (0-4); Squamous Epithelial Cell,Urine Occasional /HPF (0-10); Urine Appearance CLEAR (Clear); Urine Color Yellow (Yellow); Urine Specific Gravity 1.015 (1.001-1.035); WBC,Urine 2 /HPF (0-6)
[2019-12-02] MEDS: METOCLOPRAMIDE 5 MG TABLET PEG SCH ×5 (00:07→23:49)
[2019-12-02] MEDS: INSULIN LISPRO 100 UNIT/ML SUBCUT SCH ×5 (00:07→23:32)
[2019-12-02] MEDS: ALBUTEROL/IPRATROPIUM 3 ML NEB RESP TX SCH ×6 (02:12→23:07)
[2019-12-02 03:33] LABS: Allen Test Positive
[2019-12-02 03:37] LABS: ABG Base Excess 4.7 MMOL/L (-2.5-2.5); ABG HCO3 29.6 MMOL/L (20-26); ABG PCO2 44.8 MM HG (35-48); ABG PH 7.438 (7.35-7.45); ABG PO2 79.8 MM HG (80-95)
[2019-12-02 03:38] LABS: ABG Oxygen Saturation 96.1 % (95-100)
[2019-12-02 04:34] LABS: Basophils # 0.1 10*3/uL (0.0-0.2); Basophils % 0.3 % (0.0-0.8); Mean Corpuscular HGB Conc 29.2 GM/DL (32-36)
[2019-12-02 04:59] LABS: Eosinophils # 0.1 10*3/uL (0.0-0.87); Eosinophils % 0.7 % (0.00-10.9); Hematocrit 35.9 VOL% (35.7-47.0); Immature Granulocytes % 2.3 %; Immature Granulocytes Absolute 0.43 #; Mean Corpuscular Volume 92.3 FL (87-102); Mean Platelet Volume 9.8 FL (9.6-12.0); Monocytes % 6.2 % (1.7-12.7); NRBC # 0.09 10*3/uL; Neutrophils % 69.5 % (38.7-73.9); Platelet Count 333 T/CUMM (130-400); Red Blood Count 3.89 MC/CUMM (3.8-5.5); Red Cell Distribution Width 16.7 % (9.3-17.3); White Blood Count 18.8 T/CUMM (4-12)
[2019-12-02 05:04] LABS: Calcium 9.9 MG/DL (8.5-10.1); Osmolality,Calculated 288.5 MOS/KG (273-304)
[2019-12-02 05:07] LABS: Hemoglobin 10.5 GM/DL (12.0-16.0)
[2019-12-02] MEDS: BUDESONIDE 0.5 MG/2 ML NEB RESP TX SCH ×2 (07:06→19:26)
[2019-12-02] MEDS: ARFORMOTEROL 15 MCG/2 ML NEB RESP TX SCH ×2 (07:06→19:26)
[2019-12-02] MEDS: POTASSIUM CHLORIDE 20 MEQ/15 ML UDCUP PER TUBE SCH ×2 (09:18→20:56)
[2019-12-02] MEDS: FUROSEMIDE 40 MG/5 ML UDCUP PO SCH ×2 (09:18→17:39)
[2019-12-02] MEDS: DOCUSATE SODIUM 100 MG/10 ML UDCUP NG SCH ×2 (09:18→20:56)
[2019-12-02] MEDS: LACTULOSE 20 GM/30 ML UDCUP PO PRN (09:18)
[2019-12-02] MEDS: predniSONE 20 MG TABLET PO SCH (09:19)
[2019-12-02] MEDS: QUEtiapine 100 MG TABLET PO SCH ×2 (09:19→20:56)
[2019-12-02] MEDS: buPROPion 75 MG TABLET PO SCH ×2 (09:19→20:56)
[2019-12-02] MEDS: CHOLECALCIFEROL 5,000 UNIT TABLET PER TUBE SCH (09:19)
[2019-12-02] MEDS: ZINC OXIDE PASTE 113 GM TUBE TOP SCH ×2 (09:20→21:35)
[2019-12-02] MEDS: BENZTROPINE 1 MG TABLET PO SCH ×2 (09:20→20:56)
[2019-12-02] MEDS: MENTHOL/ZINC OXIDE OINT 71 GM JAR TOP SCH (09:20)
[2019-12-02] MEDS: ARIPiprazole 10 MG TABLET PO SCH (09:20)
[2019-12-02] MEDS: NYSTATIN POWDER 15 GM BOTTLE TOP SCH ×3 (09:20→21:35)
[2019-12-02] MEDS: DESITIN 4OZ/NYSTATIN 15 GRAM MIXTURE PASTE TOP SCH ×2 (09:21→21:35)
[2019-12-02] MEDS: FAMOTIDINE 8 MG/ML 50 ML/BOTTLE PO SCH ×2 (09:31→20:58)
[2019-12-03] MEDS: ALBUTEROL/IPRATROPIUM 3 ML NEB RESP TX SCH ×6 (03:02→23:32)
[2019-12-03] MEDS: INSULIN LISPRO 100 UNIT/ML SUBCUT SCH ×4 (05:17→23:49)
[2019-12-03] MEDS: METOCLOPRAMIDE 5 MG TABLET PEG SCH ×4 (05:28→23:47)
[2019-12-03] MEDS: ARFORMOTEROL 15 MCG/2 ML NEB RESP TX SCH ×2 (07:07→19:25)
[2019-12-03] MEDS: BUDESONIDE 0.5 MG/2 ML NEB RESP TX SCH ×2 (07:07→19:25)
[2019-12-03] MEDS: guaiFENesin 200 MG/10 ML UDCUP PEG SCH ×5 (09:00→23:47)
[2019-12-03] MEDS: POTASSIUM CHLORIDE 20 MEQ/15 ML UDCUP PER TUBE SCH ×2 (09:00→21:23)
[2019-12-03] MEDS: FUROSEMIDE 40 MG/5 ML UDCUP PO SCH ×2 (09:00→16:25)
[2019-12-03] MEDS: DOCUSATE SODIUM 100 MG/10 ML UDCUP NG SCH ×2 (09:00→21:22)
[2019-12-03] MEDS: QUEtiapine 100 MG TABLET PO SCH ×2 (09:01→21:23)
[2019-12-03] MEDS: CHOLECALCIFEROL 5,000 UNIT TABLET PER TUBE SCH (09:01)
[2019-12-03] MEDS: ARIPiprazole 10 MG TABLET PO SCH (09:01)
[2019-12-03] MEDS: BENZTROPINE 1 MG TABLET PO SCH ×2 (09:01→21:23)
[2019-12-03] MEDS: predniSONE 20 MG TABLET PO SCH (09:01)
[2019-12-03] MEDS: buPROPion 75 MG TABLET PO SCH ×2 (09:01→21:23)
[2019-12-03] MEDS: FAMOTIDINE 8 MG/ML 50 ML/BOTTLE PO SCH ×2 (09:02→21:24)
[2019-12-04] MEDS: ALBUTEROL/IPRATROPIUM 3 ML NEB RESP TX SCH ×6 (04:32→23:55)
[2019-12-04] MEDS: guaiFENesin 200 MG/10 ML UDCUP PEG SCH ×5 (05:50→20:33)
[2019-12-04] MEDS: INSULIN LISPRO 100 UNIT/ML SUBCUT SCH ×3 (05:50→17:44)
[2019-12-04] MEDS: METOCLOPRAMIDE 5 MG TABLET PEG SCH ×3 (05:50→19:15)
[2019-12-04] MEDS: BUDESONIDE 0.5 MG/2 ML NEB RESP TX SCH ×2 (07:29→19:06)
[2019-12-04] MEDS: ARFORMOTEROL 15 MCG/2 ML NEB RESP TX SCH ×2 (07:29→19:06)
[2019-12-04] MEDS: DOCUSATE SODIUM 100 MG/10 ML UDCUP NG SCH ×2 (08:12→20:34)
[2019-12-04] MEDS: ARIPiprazole 10 MG TABLET PO SCH (08:12)
[2019-12-04] MEDS: QUEtiapine 100 MG TABLET PO SCH ×2 (08:12→20:33)
[2019-12-04] MEDS: CHOLECALCIFEROL 5,000 UNIT TABLET PER TUBE SCH (08:13)
[2019-12-04] MEDS: predniSONE 20 MG TABLET PO SCH (08:13)
[2019-12-04] MEDS: BENZTROPINE 1 MG TABLET PO SCH ×2 (08:13→20:33)
[2019-12-04] MEDS: POTASSIUM CHLORIDE 20 MEQ/15 ML UDCUP PER TUBE SCH ×2 (08:13→20:34)
[2019-12-04] MEDS: FUROSEMIDE 40 MG/5 ML UDCUP PO SCH ×2 (08:13→17:43)
[2019-12-04] MEDS: buPROPion 75 MG TABLET PO SCH ×2 (08:19→20:34)
[2019-12-04] MEDS: FAMOTIDINE 8 MG/ML 50 ML/BOTTLE PO SCH ×2 (08:22→23:06)
[2019-12-05] MEDS: guaiFENesin 200 MG/10 ML UDCUP PEG SCH ×6 (01:02→20:58)
[2019-12-05] MEDS: METOCLOPRAMIDE 5 MG TABLET PEG SCH ×4 (01:02→17:18)
[2019-12-05] MEDS: INSULIN LISPRO 100 UNIT/ML SUBCUT SCH ×4 (01:30→17:35)
[2019-12-05] MEDS: ALBUTEROL/IPRATROPIUM 3 ML NEB RESP TX SCH ×6 (03:55→23:48)
[2019-12-05 04:05] LABS: Basophils % 0.2 % (0.0-0.8); Eosinophils # 0.2 10*3/uL (0.0-0.87); Eosinophils % 1.3 % (0.00-10.9); Immature Granulocytes % 1.7 %; Immature Granulocytes Absolute 0.28 #; Lymphocytes # 4.1 10*3/uL (1.4-4.0); Lymphocytes % 24.4 % (21.3-54.2); Mean Corpuscular HGB Conc 30.6 GM/DL (32-36); Mean Corpuscular Volume 88.5 FL (87-102); Mean Platelet Volume 9.7 FL (9.6-12.0); Monocytes % 4.5 % (1.7-12.7); NRBC # 0.04 10*3/uL; Neutrophils % 67.9 % (38.7-73.9); Platelet Count 297 T/CUMM (130-400); Red Blood Count 4.07 MC/CUMM (3.8-5.5); Red Cell Distribution Width 16.6 % (9.3-17.3); White Blood Count 16.7 T/CUMM (4-12)
[2019-12-05 04:24] LABS: Calcium 9.3 MG/DL (8.5-10.1); Osmolality,Calculated 269.5 MOS/KG (273-304)
[2019-12-05] MEDS: ARFORMOTEROL 15 MCG/2 ML NEB RESP TX SCH ×2 (06:56→21:15)
[2019-12-05] MEDS: BUDESONIDE 0.5 MG/2 ML NEB RESP TX SCH ×2 (06:56→21:15)
[2019-12-05] MEDS: BENZTROPINE 1 MG TABLET PO SCH ×2 (09:21→20:58)
[2019-12-05] MEDS: FUROSEMIDE 40 MG/5 ML UDCUP PO SCH (09:21)
[2019-12-05] MEDS: ARIPiprazole 10 MG TABLET PO SCH (09:22)
[2019-12-05] MEDS: CHOLECALCIFEROL 5,000 UNIT TABLET PER TUBE SCH (09:22)
[2019-12-05] MEDS: FAMOTIDINE 8 MG/ML 50 ML/BOTTLE PO SCH ×2 (09:23→20:59)
[2019-12-05] MEDS: buPROPion 75 MG TABLET PO SCH ×2 (09:23→20:58)
[2019-12-05] MEDS: QUEtiapine 100 MG TABLET PO SCH ×2 (09:23→21:24)
[2019-12-05] MEDS: POTASSIUM CHLORIDE 20 MEQ/15 ML UDCUP PER TUBE SCH ×2 (09:23→20:58)
[2019-12-05] MEDS: DOCUSATE SODIUM 100 MG/10 ML UDCUP NG SCH ×2 (09:23→20:58)
[2019-12-05] MEDS: predniSONE 20 MG TABLET PO SCH (09:31)
[2019-12-05 09:59] LABS: Calcium 9.5 MG/DL (8.5-10.1); Osmolality,Calculated 264.9 MOS/KG (273-304)
[2019-12-05] MEDS ORDERED: POTASSIUM CHLORIDE 20 MEQ/15 ML UDCUP PER TUBE SCH (13:00)
[2019-12-05] MEDS ORDERED: POTASSIUM CHLORIDE 20 MEQ/15 ML UDCUP PER TUBE ONE (13:04)
[2019-12-06] MEDS: INSULIN LISPRO 100 UNIT/ML SUBCUT SCH ×5 (00:43→23:43)
[2019-12-06] MEDS: METOCLOPRAMIDE 5 MG TABLET PEG SCH ×5 (01:01→23:32)
[2019-12-06] MEDS: guaiFENesin 200 MG/10 ML UDCUP PEG SCH ×7 (01:01→23:32)
[2019-12-06] MEDS: ALBUTEROL/IPRATROPIUM 3 ML NEB RESP TX SCH ×6 (03:08→23:20)
[2019-12-06 05:58] LABS: Basophils # 0.1 10*3/uL (0.0-0.2); Basophils % 0.3 % (0.0-0.8); Eosinophils # 0.1 10*3/uL (0.0-0.87); Eosinophils % 0.4 % (0.00-10.9); Hematocrit 37.3 VOL% (35.7-47.0); Hemoglobin 11.7 GM/DL (12.0-16.0); Immature Granulocytes % 1.5 %; Immature Granulocytes Absolute 0.29 #; Lymphocytes # 3.9 10*3/uL (1.4-4.0); Lymphocytes % 20.5 % (21.3-54.2); Mean Corpuscular HGB Conc 31.4 GM/DL (32-36); Mean Corpuscular Volume 88.8 FL (87-102); Mean Platelet Volume 9.7 FL (9.6-12.0); Monocytes % 3.9 % (1.7-12.7); NRBC # 0.13 10*3/uL; Neutrophils % 73.4 % (38.7-73.9); Platelet Count 303 T/CUMM (130-400); White Blood Count 18.8 T/CUMM (4-12)
[2019-12-06 06:31] LABS: Calcium 9.4 MG/DL (8.5-10.1); Osmolality,Calculated 263.7 MOS/KG (273-304)
[2019-12-06] MEDS: ARFORMOTEROL 15 MCG/2 ML NEB RESP TX SCH ×2 (07:32→19:02)
[2019-12-06] MEDS: BUDESONIDE 0.5 MG/2 ML NEB RESP TX SCH ×2 (07:32→19:02)
[2019-12-06] MEDS: CHOLECALCIFEROL 5,000 UNIT TABLET PER TUBE SCH (09:00)
[2019-12-06] MEDS: buPROPion 75 MG TABLET PO SCH ×2 (09:00→20:35)
[2019-12-06] MEDS: BENZTROPINE 1 MG TABLET PO SCH ×2 (09:00→20:34)
[2019-12-06] MEDS: POTASSIUM CHLORIDE 20 MEQ/15 ML UDCUP PER TUBE SCH ×2 (09:00→20:34)
[2019-12-06] MEDS: predniSONE 20 MG TABLET PO SCH ×2 (09:00→09:20)
[2019-12-06] MEDS: ARIPiprazole 10 MG TABLET PO SCH (09:00)
[2019-12-06] MEDS: DOCUSATE SODIUM 100 MG/10 ML UDCUP NG SCH ×2 (09:00→20:35)
[2019-12-06] MEDS: FUROSEMIDE 40 MG/5 ML UDCUP PO SCH (09:00)
[2019-12-06] MEDS: FAMOTIDINE 8 MG/ML 50 ML/BOTTLE PO SCH ×2 (09:00→20:41)
[2019-12-06] MEDS: QUEtiapine 100 MG TABLET PO SCH ×2 (09:00→20:34)
[2019-12-07] MEDS: ALBUTEROL/IPRATROPIUM 3 ML NEB RESP TX SCH ×6 (00:30→19:35)
[2019-12-07] MEDS: guaiFENesin 200 MG/10 ML UDCUP PEG SCH ×5 (05:08→21:42)
[2019-12-07 06:03] LABS: Basophils % 0.2 % (0.0-0.8); Eosinophils # 0.1 10*3/uL (0.0-0.87); Eosinophils % 0.3 % (0.00-10.9); Hematocrit 33.9 VOL% (35.7-47.0); Hemoglobin 10.6 GM/DL (12.0-16.0); Immature Granulocytes % 1.1 %; Immature Granulocytes Absolute 0.22 #; Lymphocytes # 3.8 10*3/uL (1.4-4.0); Lymphocytes % 19.4 % (21.3-54.2); Mean Corpuscular HGB Conc 31.3 GM/DL (32-36); Mean Corpuscular Volume 88.7 FL (87-102); Mean Platelet Volume 9.4 FL (9.6-12.0); Monocytes % 4.3 % (1.7-12.7); NRBC # 0.13 10*3/uL; Neutrophils % 74.7 % (38.7-73.9); Platelet Count 312 T/CUMM (130-400); Red Blood Count 3.82 MC/CUMM (3.8-5.5); Red Cell Distribution Width 17.2 % (9.3-17.3); White Blood Count 19.4 T/CUMM (4-12)
[2019-12-07 06:26] LABS: Osmolality,Calculated 271.5 MOS/KG (273-304)
[2019-12-07] MEDS: INSULIN LISPRO 100 UNIT/ML SUBCUT SCH ×4 (06:54→23:07)
[2019-12-07] MEDS: METOCLOPRAMIDE 5 MG TABLET PEG SCH ×3 (06:55→18:16)
[2019-12-07] MEDS: ARFORMOTEROL 15 MCG/2 ML NEB RESP TX SCH ×2 (07:25→19:35)
[2019-12-07] MEDS: BUDESONIDE 0.5 MG/2 ML NEB RESP TX SCH ×2 (07:25→19:35)
[2019-12-07] MEDS: ARIPiprazole 10 MG TABLET PO SCH (08:36)
[2019-12-07] MEDS: buPROPion 75 MG TABLET PO SCH ×2 (08:36→21:40)
[2019-12-07] MEDS: BENZTROPINE 1 MG TABLET PO SCH ×2 (08:36→21:43)
[2019-12-07] MEDS: FUROSEMIDE 40 MG/5 ML UDCUP PO SCH (08:36)
[2019-12-07] MEDS: QUEtiapine 100 MG TABLET PO SCH ×2 (08:37→21:43)
[2019-12-07] MEDS: POTASSIUM CHLORIDE 20 MEQ/15 ML UDCUP PER TUBE SCH ×2 (08:37→21:42)
[2019-12-07] MEDS: CHOLECALCIFEROL 5,000 UNIT TABLET PER TUBE SCH (08:37)
[2019-12-07] MEDS: predniSONE 20 MG TABLET PO SCH (08:37)
[2019-12-07] MEDS: DOCUSATE SODIUM 100 MG/10 ML UDCUP NG SCH ×2 (08:37→21:43)
[2019-12-07] MEDS: FAMOTIDINE 8 MG/ML 50 ML/BOTTLE PO SCH ×2 (12:26→21:40)
[2019-12-07] MEDS: ONDANSETRON 4 MG/2 ML VIAL IV PRN (21:43)
[2019-12-07] MEDS: ACETAMINOPHEN 325 MG TABLET PO PRN (21:43)
[2019-12-08] MEDS: guaiFENesin 200 MG/10 ML UDCUP PEG SCH ×6 (01:13→22:05)
[2019-12-08] MEDS: METOCLOPRAMIDE 5 MG TABLET PEG SCH ×4 (01:13→17:29)
[2019-12-08] MEDS: ALBUTEROL/IPRATROPIUM 3 ML NEB RESP TX SCH ×6 (03:25→23:25)
[2019-12-08] MEDS: INSULIN LISPRO 100 UNIT/ML SUBCUT SCH ×3 (05:04→17:29)
[2019-12-08] MEDS: BUDESONIDE 0.5 MG/2 ML NEB RESP TX SCH ×2 (07:23→19:08)
[2019-12-08] MEDS: ARFORMOTEROL 15 MCG/2 ML NEB RESP TX SCH ×2 (07:23→19:08)
[2019-12-08] MEDS: DOCUSATE SODIUM 100 MG/10 ML UDCUP NG SCH ×2 (08:57→22:06)
[2019-12-08] MEDS: POTASSIUM CHLORIDE 20 MEQ/15 ML UDCUP PER TUBE SCH ×2 (08:57→22:05)
[2019-12-08] MEDS: buPROPion 75 MG TABLET PO SCH ×2 (08:58→22:05)
[2019-12-08] MEDS: predniSONE 20 MG TABLET PO SCH (08:58)
[2019-12-08] MEDS: CHOLECALCIFEROL 5,000 UNIT TABLET PER TUBE SCH (08:58)
[2019-12-08] MEDS: ARIPiprazole 10 MG TABLET PO SCH (08:58)
[2019-12-08] MEDS: FUROSEMIDE 40 MG/5 ML UDCUP PO SCH (08:58)
[2019-12-08] MEDS: BENZTROPINE 1 MG TABLET PO SCH ×2 (08:59→22:05)
[2019-12-08] MEDS: QUEtiapine 100 MG TABLET PO SCH ×2 (08:59→22:06)
[2019-12-08] MEDS: FAMOTIDINE 8 MG/ML 50 ML/BOTTLE PO SCH ×2 (08:59→22:06)
[2019-12-09] MEDS: INSULIN LISPRO 100 UNIT/ML SUBCUT SCH ×4 (01:30→17:43)
[2019-12-09] MEDS: guaiFENesin 200 MG/10 ML UDCUP PEG SCH ×6 (01:31→23:09)
[2019-12-09] MEDS: METOCLOPRAMIDE 5 MG TABLET PEG SCH ×4 (01:31→17:43)
[2019-12-09] MEDS: ALBUTEROL/IPRATROPIUM 3 ML NEB RESP TX SCH ×5 (03:15→19:54)
[2019-12-09] MEDS: BUDESONIDE 0.5 MG/2 ML NEB RESP TX SCH ×2 (07:30→19:54)
[2019-12-09] MEDS: ARFORMOTEROL 15 MCG/2 ML NEB RESP TX SCH ×2 (07:30→19:54)
[2019-12-09] MEDS: DOCUSATE SODIUM 100 MG/10 ML UDCUP NG SCH ×2 (09:30→23:23)
[2019-12-09] MEDS: CHOLECALCIFEROL 5,000 UNIT TABLET PER TUBE SCH (09:31)
[2019-12-09] MEDS: BENZTROPINE 1 MG TABLET PO SCH ×2 (09:31→23:22)
[2019-12-09] MEDS: predniSONE 20 MG TABLET PO SCH (09:31)
[2019-12-09] MEDS: QUEtiapine 100 MG TABLET PO SCH ×2 (09:31→23:23)
[2019-12-09] MEDS: POTASSIUM CHLORIDE 20 MEQ/15 ML UDCUP PER TUBE SCH ×2 (09:31→23:23)
[2019-12-09] MEDS: buPROPion 75 MG TABLET PO SCH ×2 (09:31→23:23)
[2019-12-09] MEDS: ARIPiprazole 10 MG TABLET PO SCH (09:32)
[2019-12-09] MEDS: FAMOTIDINE 8 MG/ML 50 ML/BOTTLE PO SCH ×2 (09:32→23:55)
[2019-12-09] MEDS: FUROSEMIDE 40 MG/5 ML UDCUP PO SCH (09:32)
[2019-12-09 13:02] LABS: Basophils % 0.1 % (0.0-0.8); Eosinophils # 0.1 10*3/uL (0.0-0.87); Eosinophils % 0.4 % (0.00-10.9); Hematocrit 38.4 VOL% (35.7-47.0); Hemoglobin 12.1 GM/DL (12.0-16.0); Immature Granulocytes % 0.9 %; Immature Granulocytes Absolute 0.15 #; Lymphocytes # 1.4 10*3/uL (1.4-4.0); Lymphocytes % 8.7 % (21.3-54.2); Mean Corpuscular HGB Conc 31.5 GM/DL (32-36); Mean Corpuscular Volume 89.3 FL (87-102); Mean Platelet Volume 9.2 FL (9.6-12.0); Monocytes % 2.5 % (1.7-12.7); NRBC # 0.03 10*3/uL; Neutrophils % 87.4 % (38.7-73.9); Platelet Count 307 T/CUMM (130-400); Red Cell Distribution Width 18.2 % (9.3-17.3); White Blood Count 15.9 T/CUMM (4-12)
[2019-12-09 13:19] LABS: Albumin 3.1 G/DL (3.4-5.0); Bilirubin,Total 0.6 MG/DL (0.2-1.0); Calcium 9.5 MG/DL (8.5-10.1); Osmolality,Calculated 273.7 MOS/KG (273-304); Total Protein 7.8 G/DL (6.4-8.3)
[2019-12-09 16:57] LABS: Bacteria,Urine Few /HPF (Few); Bilirubin,Urine Negative (Negative); Blood, Urine Large mg/dL (Negative); Glucose,Urine (UA) Negative (Negative); Ketones,Urine Negative (Negative); Mucus,Urine Occasional /LPF (Occasional); Nitrite,Urine Negative (Negative); Protein,Urine 100 MG/DL; RBC,Urine 859 /HPF (0-4); Squamous Epithelial Cell,Urine Occasional /HPF (0-10); Urine Appearance CLOUDY (Clear); Urine Color Yellow (Yellow); Urine Specific Gravity 1.018 (1.001-1.035); WBC,Urine 40 /HPF (0-6)
[2019-12-10] MEDS: ALBUTEROL/IPRATROPIUM 3 ML NEB RESP TX SCH ×7 (00:12→23:40)
[2019-12-10] MEDS: INSULIN LISPRO 100 UNIT/ML SUBCUT SCH ×4 (00:25→18:24)
[2019-12-10] MEDS: METOCLOPRAMIDE 5 MG TABLET PEG SCH ×4 (00:29→18:24)
[2019-12-10] MEDS: guaiFENesin 200 MG/10 ML UDCUP PEG SCH ×6 (00:29→20:51)
[2019-12-10] MEDS: ARFORMOTEROL 15 MCG/2 ML NEB RESP TX SCH ×2 (06:57→19:39)
[2019-12-10] MEDS: BUDESONIDE 0.5 MG/2 ML NEB RESP TX SCH ×2 (06:57→19:39)
[2019-12-10] MEDS: ARIPiprazole 10 MG TABLET PO SCH (08:40)
[2019-12-10] MEDS: buPROPion 75 MG TABLET PO SCH ×2 (08:41→20:51)
[2019-12-10] MEDS: CHOLECALCIFEROL 5,000 UNIT TABLET PER TUBE SCH (08:41)
[2019-12-10] MEDS: QUEtiapine 100 MG TABLET PO SCH ×2 (08:41→20:52)
[2019-12-10] MEDS: POTASSIUM CHLORIDE 20 MEQ/15 ML UDCUP PER TUBE SCH ×2 (08:41→20:52)
[2019-12-10] MEDS: FUROSEMIDE 40 MG/5 ML UDCUP PO SCH (08:41)
[2019-12-10] MEDS: BENZTROPINE 1 MG TABLET PO SCH ×2 (08:41→20:52)
[2019-12-10] MEDS: predniSONE 20 MG TABLET PO SCH (08:41)
[2019-12-10] MEDS: FAMOTIDINE 8 MG/ML 50 ML/BOTTLE PO SCH ×2 (08:41→20:52)
[2019-12-10] MEDS: DOCUSATE SODIUM 100 MG/10 ML UDCUP NG SCH ×2 (08:41→20:51)
[2019-12-10 11:45] LABS: Bilirubin,Total 0.8 MG/DL (0.2-1.0); Calcium 9.4 MG/DL (8.5-10.1); Osmolality,Calculated 272.7 MOS/KG (273-304); Total Protein 7.4 G/DL (6.4-8.3)
[2019-12-10 23:43] LABS: ABG Base Excess -1.6 MMOL/L (-2.5-2.5); ABG HCO3 23.1 MMOL/L (20-26); ABG Oxygen Saturation 99.9 % (95-100); ABG PCO2 45.7 MM HG (35-48); ABG PH 7.337 (7.35-7.45); ABG TCO2 21.8 MMOL/L (23-27)
[2019-12-11 00:05] LABS: Calcium 9.5 MG/DL (8.5-10.1); Osmolality,Calculated 278.5 MOS/KG (273-304)
[2019-12-11] MEDS: METOCLOPRAMIDE 5 MG TABLET PEG SCH ×4 (01:12→17:27)
[2019-12-11] MEDS: guaiFENesin 200 MG/10 ML UDCUP PEG SCH ×6 (01:15→21:40)
[2019-12-11] MEDS: INSULIN LISPRO 100 UNIT/ML SUBCUT SCH ×4 (01:35→17:27)
[2019-12-11] MEDS: ALBUTEROL/IPRATROPIUM 3 ML NEB RESP TX SCH ×6 (02:40→23:54)
[2019-12-11 04:13] LABS: Albumin 2.9 G/DL (3.4-5.0); Calcium 9.2 MG/DL (8.5-10.1); Osmolality,Calculated 275.4 MOS/KG (273-304); Total Protein 7.2 G/DL (6.4-8.3)
[2019-12-11] MEDS: ARFORMOTEROL 15 MCG/2 ML NEB RESP TX SCH ×2 (07:15→19:15)
[2019-12-11] MEDS: BUDESONIDE 0.5 MG/2 ML NEB RESP TX SCH ×2 (07:15→19:15)
[2019-12-11] MEDS: DOCUSATE SODIUM 100 MG/10 ML UDCUP NG SCH ×2 (09:40→21:41)
[2019-12-11] MEDS: predniSONE 20 MG TABLET PO SCH (09:40)
[2019-12-11] MEDS: BENZTROPINE 1 MG TABLET PO SCH ×2 (09:41→21:41)
[2019-12-11] MEDS: QUEtiapine 100 MG TABLET PO SCH ×2 (09:41→21:41)
[2019-12-11] MEDS: ARIPiprazole 10 MG TABLET PO SCH (09:41)
[2019-12-11] MEDS: buPROPion 75 MG TABLET PO SCH ×2 (09:41→21:42)
[2019-12-11] MEDS: CHOLECALCIFEROL 5,000 UNIT TABLET PER TUBE SCH (09:41)
[2019-12-11] MEDS: FUROSEMIDE 40 MG/5 ML UDCUP PO SCH (09:42)
[2019-12-11] MEDS: POTASSIUM CHLORIDE 20 MEQ/15 ML UDCUP PER TUBE SCH ×2 (09:42→21:41)
[2019-12-11] MEDS: FAMOTIDINE 8 MG/ML 50 ML/BOTTLE PO SCH ×2 (09:42→21:42)
[2019-12-11] MEDS ORDERED: MAGNESIUM CITRATE 300 ML BOTTLE PO PRN (16:27)
[2019-12-11] MEDS ORDERED: BISACODYL 10 MG SUPP RECTAL PRN (16:30)
[2019-12-12] MEDS: INSULIN LISPRO 100 UNIT/ML SUBCUT SCH ×4 (01:25→17:30)
[2019-12-12] MEDS: METOCLOPRAMIDE 5 MG TABLET PEG SCH ×4 (01:25→17:29)
[2019-12-12] MEDS: guaiFENesin 200 MG/10 ML UDCUP PEG SCH ×6 (01:25→20:48)
[2019-12-12] MEDS: ALBUTEROL/IPRATROPIUM 3 ML NEB RESP TX SCH ×6 (04:18→23:20)
[2019-12-12] MEDS: BUDESONIDE 0.5 MG/2 ML NEB RESP TX SCH ×2 (07:24→19:20)
[2019-12-12] MEDS: ARFORMOTEROL 15 MCG/2 ML NEB RESP TX SCH ×2 (07:24→19:20)
[2019-12-12] MEDS: ARIPiprazole 10 MG TABLET PO SCH (09:25)
[2019-12-12] MEDS: FUROSEMIDE 40 MG/5 ML UDCUP PO SCH (09:25)
[2019-12-12] MEDS: buPROPion 75 MG TABLET PO SCH ×2 (09:26→20:50)
[2019-12-12] MEDS: predniSONE 20 MG TABLET PO SCH (09:26)
[2019-12-12] MEDS: BENZTROPINE 1 MG TABLET PO SCH ×2 (09:27→20:49)
[2019-12-12] MEDS: CHOLECALCIFEROL 5,000 UNIT TABLET PER TUBE SCH (09:27)
[2019-12-12] MEDS: FAMOTIDINE 8 MG/ML 50 ML/BOTTLE PO SCH ×2 (09:27→20:49)
[2019-12-12] MEDS: QUEtiapine 100 MG TABLET PO SCH ×2 (09:27→20:50)
[2019-12-12] MEDS: POTASSIUM CHLORIDE 20 MEQ/15 ML UDCUP PER TUBE SCH ×2 (09:27→20:49)
[2019-12-12] MEDS: DOCUSATE SODIUM 100 MG/10 ML UDCUP NG SCH ×2 (09:27→20:49)
[2019-12-12] MEDS ORDERED: TUBERCULIN SKIN TEST 0.1 ML SYRINGE INTRADERM ONE (12:00)
[2019-12-13] MEDS: INSULIN LISPRO 100 UNIT/ML SUBCUT SCH ×2 (01:02→06:12)
[2019-12-13] MEDS: METOCLOPRAMIDE 5 MG TABLET PEG SCH ×2 (01:02→06:06)
[2019-12-13] MEDS: guaiFENesin 200 MG/10 ML UDCUP PEG SCH ×3 (01:02→08:06)
[2019-12-13] MEDS: ALBUTEROL/IPRATROPIUM 3 ML NEB RESP TX SCH ×2 (03:10→07:22)
[2019-12-13 05:53] LABS: Basophils % 0.1 % (0.0-0.8); Eosinophils # 0.2 10*3/uL (0.0-0.87); Eosinophils % 1.5 % (0.00-10.9); Hematocrit 34.8 VOL% (35.7-47.0); Hemoglobin 10.9 GM/DL (12.0-16.0); Immature Granulocytes % 0.4 %; Immature Granulocytes Absolute 0.04 #; Lymphocytes % 18.7 % (21.3-54.2); Mean Corpuscular HGB Conc 31.3 GM/DL (32-36); Mean Corpuscular Volume 89.5 FL (87-102); Mean Platelet Volume 8.7 FL (9.6-12.0); Monocytes % 6.7 % (1.7-12.7); Neutrophils % 72.6 % (38.7-73.9); Platelet Count 216 T/CUMM (130-400); Red Blood Count 3.89 MC/CUMM (3.8-5.5); Red Cell Distribution Width 17.1 % (9.3-17.3); White Blood Count 10.9 T/CUMM (4-12)
[2019-12-13 06:18] LABS: Albumin 2.8 G/DL (3.4-5.0); Bilirubin,Total 0.6 MG/DL (0.2-1.0); Calcium 9.1 MG/DL (8.5-10.1); Osmolality,Calculated 271.4 MOS/KG (273-304); Total Protein 6.7 G/DL (6.4-8.3)
[2019-12-13] MEDS: BUDESONIDE 0.5 MG/2 ML NEB RESP TX SCH (07:22)
[2019-12-13] MEDS: ARFORMOTEROL 15 MCG/2 ML NEB RESP TX SCH (07:22)
[2019-12-13] MEDS: ARIPiprazole 10 MG TABLET PO SCH (08:05)
[2019-12-13] MEDS: FUROSEMIDE 40 MG/5 ML UDCUP PO SCH (08:05)
[2019-12-13] MEDS: QUEtiapine 100 MG TABLET PO SCH (08:05)
[2019-12-13] MEDS: BENZTROPINE 1 MG TABLET PO SCH (08:05)
[2019-12-13] MEDS: buPROPion 75 MG TABLET PO SCH (08:05)
[2019-12-13 08:06] VITALS: BP 122/82
[2019-12-13] MEDS: DOCUSATE SODIUM 100 MG/10 ML UDCUP NG SCH (08:06)
[2019-12-13] MEDS: POTASSIUM CHLORIDE 20 MEQ/15 ML UDCUP PER TUBE SCH (08:06)
[2019-12-13] MEDS: predniSONE 20 MG TABLET PO SCH (08:06)
[2019-12-13] MEDS: CHOLECALCIFEROL 5,000 UNIT TABLET PER TUBE SCH (08:07)
[2019-12-13] MEDS: POTASSIUM CHLORIDE 20 MEQ/15 ML UDCUP PER TUBE PRN (08:07)
[2019-12-13] MEDS: FAMOTIDINE 8 MG/ML 50 ML/BOTTLE PO SCH (08:14)
== END 2019-12-13 08:44 | DRG 5 ==
LOC: EDBD → EDUNIT# → N.ED 09:53 → N.EDINP 12:30 → SUATTDRO 12:38 → N.2E 14:00 → N.CC 09-24 16:23 → N.2E 09-26 16:26 → N.CC 09-26 16:28 → N.2E 09-26 16:29 → N.CC 09-26 16:34 → N.2E 09-26 16:36 → N.CC 09-30 10:00 → N.ICU 11-01 22:24 → N.5E 12-06 17:36
PROVIDERS: ADMIT Family Medicine; ATTEND Family Medicine
PROC: EGDWPEG (ICD-10-PCS; 2019-11-06 10:50)